=== PATIENT | female | born 1955 | race African-American/Black ===

== ENCOUNTER 2018-04-14 18:48 | Inpatient (IN) | payer OTHER ==
[~2018-04-14] VITALS: Ht 165.1 cm; Wt 52.8 kg
--- NOTE | 2018-04-14 19:07 | Emergency Room Report ---
History of Present Illness General Chief Complaint: Lower Extremity Injury Source: EMS (Moon Wild) Present Illness HPI 62 YO Female presents to the ED Complaining of right thigh and right hip pain status post fall. She denies hitting her head she denies LOC. Denies MCDONALD, neck or back pain, reports some right sided rib pain as well. Patient is not very talkative and does not provide much details. HPI and ROS limited due to poor pt. cooperation. Per telephone conversation pt. was reporting being dropped and left on the ground, pt. was very talkative to whom ever was on her cell phone, however was reluctant to converse in the ED. On preceding attempts: Pt.hx IVDU heroin, on methadone, no Cancer hx. Pt. also reports hx of seizures, takes Dilantin last seizure was years ago. (Moon Wild) Allergies: Coded Allergies: PENICILLINS (Unverified Allergy, Unknown, 04/14/18) Patient History Past Medical History: see triage record, seizures Past Surgical History: none Pertinent Family History: none Reviewed Nursing Documentation: PMH: Agreed; PSxH: Agreed (Moon Wild) Nursing Documentation-PMH Past Medical History: No History, Except For Hx Hypertension: Yes Hx Seizures: Yes (Moon Wild) Review of Systems All Other Systems: negative except mentioned in HPI (Moon Wild) Physical Exam Vital Signs Date Time Temp Pulse Resp B/P (MAP) Pulse Ox O2 Delivery O2 Flow Rate FiO2 04/14/18 18:15 98.2 96 20 139/62 96 Room Air 98.2 Sp02 EP Interpretation: reviewed, normal General Appearance: no apparent distress - initially was verbally expressing pain., alert, GCS 15, non-toxic, thin Head: normocephalic, atraumatic Eyes: bilateral eye normal inspection, bilateral eye PERRL ENT: hearing grossly normal, normal voice, other - no oral trauma Neck: full range of motion, no bony tend Respiratory: lungs clear, normal breath sounds, speaking full sentences, other - TTP to the lateral lower right ribs, no flail chest, no obvious rib deformities. Cardiovascular #1: regular rate, rhythm, no edema Gastrointestinal: non tender, soft Musculoskeletal: back normal, normal range of motion, other - moderate kyphosis , tender - TTP to the right hip and thigh, no knee involvement. ttp to the lower right lateral rib cage. no arm, shoulder, neck or back TTP Neurologic: alert, oriented x3, responsive, motor strength/tone normal, sensory intact, speech normal, grossly normal Psychiatric: other - reserved affect Skin: normal color, no rash, warm/dry, well hydrated, other (Moon Wild) Medical Decision Making PA Attestation Dr. Salmon is my supervising Physician whom patient management has been discussed with. (Moon Wild) Diagnostic Impression: Primary Impression: Fall Qualified Codes: W19.XXXA - Unspecified fall, initial encounter Additional Impressions: Compression fracture Intertrochanteric fracture of right femur Qualified Codes: S72.141A - Displaced intertrochanteric fracture of right femur, initial encounter for closed fracture Lytic lesion of bone on x-ray Anemia Qualified Codes: D64.9 - Anemia, unspecified CKD (chronic kidney disease) Qualified Codes: N18.9 - Chronic kidney disease, unspecified ER Course 62 YO Female presents to the ED Complaining of right thigh and right hip pain status post fall. She denies hitting her head she denies LOC. Denies MCDONALD, neck or back pain, reports some right sided rib pain as well. Patient is not very talkative and does not provide much details. HPI and ROS limited due to poor pt. cooperation. Per telephone conversation pt. was reporting being dropped and left on the ground, pt. was very talkative to whom ever was on her cell phone, however was reluctant to converse in the ED. On preceding attempts: Pt.hx IVDU heroin, on methadone, no Cancer hx. Pt. also reports hx of seizures, takes Dilantin last seizure was years ago. Ddx considered but are not limited to Fracture, dislocation, contusion, Sprain/ Strain/Spasm. -visible dirt/dust along the right arm/ leg most likely acquired from falling to the ground outside. Vital signs: are WNL, pt. is afebrile H&PE are most consistent with musculoskeletal injury will perform imaging to r/ o fractures/dislocations. no abrasions noted. --CURES : Does not show this pt. being rx'd methadone, ORDERS: - X-ray Right Femur - questionable trochanter fx, no Dislocation, or significant soft tissue injury, per preliminary read in ED, and signed by NICHOLAS Wild, my supervising physician has reviewed, and agrees with my interpretation. -CT Chest and Hip no contrast: Compression fx. no rib fx's. -CT Right hip: Minimally displaced intertochanteric fracture of the right femur. 6mm lytic lesion also noted. Per official radiology report- Please see report for specific details. -Pre-Op lab work: CBC,CMP, PT/PTT, ABO: PENDING @ Time of Sign Out - EK NSR ED INTERVENTIONS: - Tylenol PO DISPOSITION: at this time pt. will be admitted for Right femur Fx. (Moon Wild) ER Course She was signed out to me. This patient had a fall and sustained a nondisplaced intratrochanteric right femur fracture. This is concerning for pathological fracture since she has a lytic lesion on the right ilium. She is very anemic but no evidence of bleeding. This is also concerning for neoplastic process like colon cancer. She is otherwise stable for transfer. I discussed the case with Dr. Lindquist who accepted pt for transfer. (NANCI MARSH M.D.) EKG Diagnostic Results EP Interpretation: Dr. Salmon Rate: normal - 86 bpm Rhythm: NSR ST Segments: no acute changes ASA given to the pt in ED: No PA Scribe Text This Interpretation was scribed by NICHOLAS Wild. (Moon Wild) Other X-Ray Diagnostic Results Other X-Ray Diagnostic Results : X-Ray ordered: Right Femur # of Views/Limited Vs Complete: 3 View Indication: Pain EP Interpretation: Yes PA Xray: Interpretation reviewed, by supervising MD, and agrees with findings. Interpretation: no dislocation, no soft tissue swelling, other - questionable trochanter fx Impression: Other - abnormal Electronically Signed by: Moon Wild PA-C (Moon Wild) CT/MRI/US Diagnostic Results CT/MRI/US Diagnostic Results #1: Imaging Test Ordered: CT Chest Non contrast Impression "Age-indeterminate L3 compression fracture. 40% loss of height. No retropulsion. No pneumothorax or hemothorax. Subsegmental atelectasis to both lungs. Hypodense blood pool suggesting anemia"Per official radiology report- Please see report for specific details. CT/MRI/US Diagnostic Results #2: Imaging Test Ordered: CT HIP- Right Impression "Mildly displaced intertrochanteric Femur fx. and 6mm lytic lesion." --Per official radiology report- Please see report for specific details. (Moon Wild) Last Vital Signs Date Time Temp Pulse Resp B/P (MAP) Pulse Ox O2 Delivery O2 Flow Rate FiO2 04/14/18 18:15 98.2 96 20 139/62 96 Room Air 98.2 (Moon Wild) Status: unchanged (NANCI MARSH M.D.) Disposition: XFER SHT-TRM HOSP Condition: Stable Signed Out To: Dr. Marsh (Moon Wild) Moon Wild Apr 14, 2018 19:07 NANCI MARSH M.D. Apr 14, 2018 23:03
[2018-04-14 22:08] VITALS: BP 121/68
[2018-04-14 22:48] LABS: HEMATOCRIT 25.4 % (37.0-47.0); HEMOGLOBIN 7.1 G/DL (12.0-16.0); MEAN CORPUSCULAR VOLUME 67 FL (80-99); PLATELET COUNT 243 K/UL (150-450); RED BLOOD COUNT 3.78 M/UL (4.20-5.40); RED CELL DISTRIBUTION WIDTH 15.7 % (11.6-14.8); WHITE BLOOD COUNT 5.7 K/UL (4.8-10.8)
[2018-04-14 22:52] LABS: ANION GAP 9 mmol/L (5-15); BLOOD UREA NITROGEN 18 mg/dL (7-18); CALCIUM 8.8 MG/DL (8.5-10.1); CARBON DIOXIDE 24 MMOL/L (21-32); CHLORIDE 105 MMOL/L (98-107); CREATININE 2.1 MG/DL (0.55-1.30); POTASSIUM 4.4 MMOL/L (3.5-5.1); SODIUM 137 MMOL/L (136-145)
[2018-04-14 22:57] LABS: ALANINE AMINOTRANSFERASE 26 U/L (12-78); ALBUMIN/GLOBULIN RATIO 0.6 (1.0-2.7); ALKALINE PHOSPHATASE 89 U/L (46-116); ASPARTATE AMINO TRANSFERASE 44 U/L (15-37); BILIRUBIN,TOTAL 0.2 MG/DL (0.2-1.0)
[2018-04-14 22:58] LABS: INR 1.1 (0.9-1.1)
[2018-04-15] VITALS (19 sets, daily range): BP systolic 124–181; BP diastolic 70–104
[2018-04-15] MEDS ORDERED: Morphine Sulfate 4mg/ml Inj IVP ONE (01:15)
[2018-04-15] MEDS ORDERED: LORazepam Inj 2mg/ml 1ml IV PRN (07:30)
[2018-04-15] MEDS ORDERED: Morphine Sulfate 4mg/ml Inj IVP PRN ×2 (07:30→15:15)
[2018-04-15] MEDS ORDERED: Mylanta II UD 30ml ORAL PRN (07:30)
[2018-04-15] MEDS ORDERED: Morphine Sulfate 2mg/ml Inj IVP PRN ×3 (08:00→17:30)
[2018-04-15] MEDS ORDERED: D5 1/2NS 1,000 ML IV SCH (08:00)
[2018-04-15] MEDS: Morphine Sulfate 4mg/ml Inj IVP PRN ×2 (08:34→13:23)
[2018-04-15] MEDS: Heparin 5000 units/ml inj SUBQ SCH ×2 (09:00→21:00)
--- NOTE | 2018-04-15 09:53 | Diagnostic Imaging Report ---
Indications: Right hip pain, status post fall Technique: Two views of the right femur Comparison: None Findings: A subtle lucency is seen through the intertrochanteric region, best seen on the AP view. No femoral shaft fracture demonstrated. Impression: Positive for nondisplaced right hip intertrochanteric fracture
--- NOTE | 2018-04-15 12:18 | Diagnostic Imaging Report ---
Indication: Right hip pain, status post fall Technique: No IV contrast utilized per trauma protocol. Spiral acquisitions obtained through the pelvis and right hip Multiplanar reconstructions were generated. Total dose length product 267.47 and 304 mGycm. CTDIvol(s) 9.27 and 10.48 mGy. No definite exam was inadvertently repeated the subsequent morning. Radiation dose was minimized using automated exposure control Comparison: none Findings: There is a nondisplaced minimally posteriorly angulated intertrochanteric fracture of the right hip. No other acute fractures. No pelvic fracture. No definite osteolytic lesion is demonstrated. There is a focal 6 mm osteolytic lesion of the posterior right iliac bone just below the iliac crest with loss of the posterior cortex. No other osteolytic foci. The included pelvic viscera are remarkable for the presence of colonic diverticula.. There is mild increased attenuation of the subcutaneous fat of both hips, right greater than left. Impression: Positive for right hip intertrochanteric fracture Small osteolytic lesion of the right iliac bone. This could represent a small focus of neoplasm or infection. Colonic diverticulosis. No evidence of diverticulitis Increased attenuation of the bilateral hip subcutaneous fat, may reflect small contusions The CT scanner at [facility] is accredited by the [employer] and the scans are performed using protocols designed to limit radiation exposure to as low as reasonably achievable to attain images of sufficient resolution adequate for diagnostic evaluation.
[2018-04-15] MEDS ORDERED: NeoSporin Gu Irrig 1ml Amp IRRIG ONE (12:55)
[2018-04-15] MEDS ORDERED: Bacitracin 50000 Units Vial ONE (12:55)
[2018-04-15] MEDS ORDERED: Bupivacaine 0.5% Inj 30 ml vial INJ ONE (12:56)
[2018-04-15] MEDS ORDERED: EPINEPHrine 1mg/1ml Amp ONE (12:56)
[2018-04-15] MEDS ORDERED: Ketorolac 30mg Inj ONE ×2 (13:00→18:05)
[2018-04-15] MEDS ORDERED: Bupivacaine 0.25% Inj 30ml INJ ONE (13:00)
[2018-04-15] MEDS ORDERED: Kenalog-40 1ml Vial ONE (13:00)
--- NOTE | 2018-04-15 13:27 | Diagnostic Imaging Report ---
Clinical Indication: Pain, status post fall Technique: Spiral acquisitions obtained through the chest. No IV contrast utilized, reason not stated. Multiplanar reconstructions generated. Total dose length product 322.85 mGycm. CTDIvol(s) 10.06 mGy. Dose reduction achieved using automated exposure control Comparison: none Findings: There are mild compression fracture deformities of the T7 and T8 vertebral bodies with minimal height loss. There is also a compression fracture deformity of the T3 vertebral body which demonstrates approximately 50% height loss. No other fractures are evident. The lungs demonstrate scarring and atelectasis at both lung bases. There is mild interstitial septal irregularity, predominantly at the lung bases but generalized. No focal airspace consolidation. No effusions. No definite masses or nodules demonstrated. 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 The heart size is normal. No pericardial effusion. The thyroid demonstrates multiple masses, largest in the lower pole measuring 2 cm long axis dimension. No axillary or chest wall mass or adenopathy. The included upper abdominal anatomy is unremarkable. Impression: Compression fracture deformity of the T3, T7, and T8 vertebral bodies. Acuity indeterminate. 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 Further evaluation with ultrasound should be considered. This finding was discussed in person with Dr. Jerome The CT scanner at [facility] is accredited by the [employer] and the scans are performed using protocols designed to limit radiation exposure to as low as reasonably achievable to attain images of sufficient resolution adequate for diagnostic evaluation.
--- NOTE | 2018-04-15 14:49 | Consultation ---
History of Present Illness General Date patient seen: Apr 15, 2018 Chief Complaint: Present Illness Allergies: Coded Allergies: PENICILLINS (Unverified Allergy, Unknown, 04/14/18) Medication History Unable to Obtain Active Prescriptions or Reported Meds Patient History Healthcare decision maker CL HALE Resuscitation status Full Code Advanced Directive on File No Physical Exam Last 24 Hour Vital Signs Date Time Temp Pulse Resp B/P (MAP) Pulse Ox O2 Delivery O2 Flow Rate FiO2 04/15/18 13:23 98.1 04/15/18 12:00 98.1 101 19 149/79 (102) 98 98.1 04/15/18 09:04 97.5 04/15/18 09:00 97.6 101 20 147/86 (106) 97 97.6 04/15/18 08:34 97.5 04/15/18 05:54 Room Air 04/15/18 05:01 97.5 75 20 138/86 (103) 100 97.5 04/15/18 01:06 98.3 04/15/18 01:00 98.3 87 16 165/80 98 Room Air 98.3 04/15/18 00:27 98.3 87 16 165/80 98 Room Air 98.3 04/15/18 00:00 97.5 82 20 145/90 (108) 100 97.5 04/14/18 22:08 99.3 82 14 121/68 96 Room Air 99.3 04/14/18 21:06 98.2 04/14/18 20:07 98.2 04/14/18 18:15 98.2 96 20 139/62 96 Room Air 98.2 Laboratory Tests Test 04/14/18 22:25 White Blood Count 5.7 K/UL (4.8-10.8) Red Blood Count 3.78 M/UL (4.20-5.40) L Hemoglobin 7.1 G/DL (12.0-16.0) L Hematocrit 25.4 % (37.0-47.0) L Mean Corpuscular Volume 67 FL (80-99) L Mean Corpuscular Hemoglobin 18.8 PG (27.0-31.0) L Mean Corpuscular Hemoglobin Concent 27.9 G/DL (32.0-36.0) L Red Cell Distribution Width 15.7 % (11.6-14.8) H Platelet Count 243 K/UL (150-450) Mean Platelet Volume 7.0 FL (6.5-10.1) Neutrophils (%) (Auto) % (45.0-75.0) Lymphocytes (%) (Auto) % (20.0-45.0) Monocytes (%) (Auto) % (1.0-10.0) Eosinophils (%) (Auto) % (0.0-3.0) Basophils (%) (Auto) % (0.0-2.0) Differential Total Cells Counted 100 Neutrophils % (Manual) 70 % (45-75) Lymphocytes % (Manual) 18 % (20-45) L Monocytes % (Manual) 12 % (1-10) H Eosinophils % (Manual) 0 % (0-3) Basophils % (Manual) 0 % (0-2) Band Neutrophils 0 % (0-8) Platelet Estimate Adequate Platelet Morphology Normal Hypochromasia 1+ Anisocytosis 1+ Prothrombin Time 11.4 SEC (9.30-11.50) Prothromb Time International Ratio 1.1 (0.9-1.1) Activated Partial Thromboplast Time 22 SEC (23-33) L Sodium Level 137 MMOL/L (136-145) Potassium Level 4.4 MMOL/L (3.5-5.1) Chloride Level 105 MMOL/L (98-107) Carbon Dioxide Level 24 MMOL/L (21-32) Anion Gap 9 mmol/L (5-15) Blood Urea Nitrogen 18 mg/dL (7-18) Creatinine 2.1 MG/DL (0.55-1.30) H Estimat Glomerular Filtration Rate 28.7 mL/min (>60) Glucose Level 98 MG/DL (74-106) Calcium Level 8.8 MG/DL (8.5-10.1) Total Bilirubin 0.2 MG/DL (0.2-1.0) Aspartate Amino Transf (AST/SGOT) 44 U/L (15-37) H Alanine Aminotransferase (ALT/SGPT) 26 U/L (12-78) Alkaline Phosphatase 89 U/L (46-116) Total Protein 8.3 G/DL (6.4-8.2) H Albumin 3.0 G/DL (3.4-5.0) L Globulin 5.3 g/dL Albumin/Globulin Ratio 0.6 (1.0-2.7) L Height (Feet): 5 Height (Inches): 5.00 Weight (Pounds): 109 Medications Current Medications Medications (Trade) Dose Ordered Sig/Deysi Route PRN Reason Start Time Stop Time Status Last Admin Dose Admin Acetaminophen (Tylenol) 650 mg Q4H PRN ORAL fever 04/15/18 08:00 05/15/18 07:59 Al Hydroxide/Mg Hydroxide (Mylanta II) 30 ml Q6H PRN ORAL dyspepsia 04/15/18 07:30 05/15/18 07:29 Dextrose (Dextrose 50%) 25 ml STAT PRN IV Hypoglycemia 04/15/18 07:30 05/15/18 07:29 Dextrose (Dextrose 50%) 50 ml STAT PRN IV Hypoglycemia 04/15/18 07:45 05/15/18 07:44 Dextrose/Sodium Chloride 1,000 ml @ 50 mls/hr Q20H IV 04/15/18 08:00 05/15/18 07:59 04/15/18 09:34 Heparin Sodium (Porcine) (Heparin 5000 units/ml) 5,000 units EVERY 12 HOURS SUBQ 04/15/18 09:00 05/15/18 08:59 Lidocaine (Lidoderm 5% PATCH) 1 patch DAILY TDERMAL 04/15/18 14:30 05/15/18 14:29 Lorazepam (Ativan 2mg/ml 1ml) 0.5 mg Q4H PRN IV For Anxiety 04/15/18 07:30 04/22/18 07:29 Morphine Sulfate (Morphine Sulfate) 2 mg Q4H PRN IVP Moderate Pain (Pain Scale 4-6) 04/15/18 08:00 04/22/18 07:59 Morphine Sulfate (Morphine Sulfate) 4 mg Q4H PRN IVP Severe Pain (Pain Scale 7-10) 04/15/18 07:45 04/22/18 07:29 04/15/18 13:23 Ondansetron HCl (Zofran) 4 mg Q6H PRN IVP Nausea & Vomiting 04/15/18 08:00 05/15/18 07:59 Polyethylene Glycol (Miralax) 17 gm HSPRN PRN ORAL Constipation 04/15/18 21:00 05/15/18 20:59 Zolpidem Tartrate (Ambien) 5 mg HSPRN PRN ORAL Insomnia 04/15/18 21:00 04/22/18 20:59 Assessment/Plan Assessment/Plan (1) Right hip fracture s/p fall (2) Right hip pain (3) Thoracic compression fracture (4) H/o heroin abuse on methadone maintenance D/w Dr. Drummond and he concurred. Thank you for the courtesy of this consultation. Jhony Whittaker Apr 15, 2018 14:49
[2018-04-15] MEDS ORDERED: Naloxone 0.4mg/ml Inj IVP PRN (15:15)
--- NOTE | 2018-04-15 15:50 | Consultation ---
Consult Note Consult Note asked to eval for elevated serum Cr 62 YO Female presents to the ED Complaining of right thigh and right hip pain status post fall. She denies hitting her head she denies LOC. Denies MCDONALD, neck or back pain, reports some right sided rib pain as well. Patient is not very talkative and does not provide much details. HPI and ROS limited due to poor pt. cooperation. Per telephone conversation pt. was reporting being dropped and left on the ground, pt. was very talkative to whom ever was on her cell phone, however was reluctant to converse in the ED. On preceding attempts: Pt.hx IVDU heroin, on methadone, no Cancer hx. Pt. also reports hx of seizures, takes Dilantin last seizure was years ago. Coded Allergies: PENICILLINS (Unverified Allergy, Unknown, 04/14/18) Hx Hypertension: Yes Hx Seizures: Yes Assessment/Plan Primary Impression: Fall Compression fracture Intertrochanteric fracture of right femur Lytic lesion of bone on x-ray RENAL FAILURE ? CHRONIC AND ACUTE other: Anemia Low MCV HTN Low Albumin Plan: Anemia sanchez Hydrate avoid nephrotoxics monitor lytes and renal parameters Pasquale Ross MD Apr 15, 2018 15:50
[2018-04-15] MEDS: Pantoprazole Inj IVP SCH (16:00)
--- NOTE | 2018-04-15 16:32 | Diagnostic Imaging Report ---
Indication: Chronic arm and back pain Technique: Sagittal T1 fast spin echo, sagittal T2 fast echo, sagittal STIR, axial T2 fast spin echo images were obtained through the thoracic spine Comparison: Findings: Bony alignment is normal. There is loss of height anteriorly of the T3 vertebral body. There is very subtle slight anterior loss of height of the T7 and T8 vertebral bodies. These all demonstrate normal marrow signal, however. There is no evidence posterior retropulsion. Vertebral body marrow signal is overall normal. There is slight smooth kyphotic deformity. Intrinsic cord signal is normal. No significant disc bulge or protrusion, spinal stenosis, or neural foraminal narrowing noted. The included extraspinal soft tissues are unremarkable Impression: T3, T7, T8 vertebral body compression fracture deformities. Lack of marrow signal changes indicating that these are chronic. Otherwise unremarkable exam
[2018-04-15] MEDS ORDERED: Morphine Sulfate PF 10 ML ONE (16:33)
--- NOTE | 2018-04-15 16:54 | Cardiology Report ---
APPROVED REPORT EKG Measurement Heart [id number] Normal sinus rhythm Prolonged QT Abnormal ECG
[2018-04-15] MEDS ORDERED: Zemuron 50mg/5ml Inj IV ONE (17:00)
[2018-04-15] MEDS ORDERED: LR 1000ml ONE (17:00)
[2018-04-15] MEDS ORDERED: Sterile Water Irrig 1000ml IRRIG ONE (17:00)
[2018-04-15] MEDS ORDERED: Neostigmine 1mg/ml 10ml Inj ONE (17:00)
[2018-04-15] MEDS ORDERED: Glycopyrrolate 0.2mg/ml 1ml Vial ONE (17:00)
[2018-04-15] MEDS ORDERED: NS Irrig 1000ml ONE (17:00)
[2018-04-15] MEDS ORDERED: Lidocaine 1% MPF 10mg/ml 5ml ONE (17:01)
[2018-04-15] MEDS ORDERED: Propofol 200mg/20ml IV ONE (17:01)
[2018-04-15] MEDS ORDERED: fentaNYL 100 mcg/2 mL IV ONE ×2 (17:02→18:06)
[2018-04-15] MEDS ORDERED: Midazolam 2mg/2ml Inj ONE (17:03)
[2018-04-15] MEDS: Docusate 100mg cap ORAL SCH ×2 (17:23→21:00)
[2018-04-15] MEDS ORDERED: D5 1/2NS w/KCl 20mEq 1,000 ML IV SCH (17:23)
--- NOTE | 2018-04-15 17:23 | Pre-Procedure Note/Attestation ---
Pre-Procedure Note/Attestation Complete Prior to Procedure Planned Procedure: right Procedure Narrative: hip orif Indications for Procedure Pre-Operative Diagnosis: right hip fx Attestation I attest that I discussed the nature of the procedure; its benefits; risks and complications; and alternatives (and the risks and benefits of such alternatives ), prior to the procedure, with the patient (or the patient's legal associate financial representative). I attest that, if there was a reasonable possibility of needing a blood transfusion, the patient (or the patient's legal associate financial representative) was given the [facility] standardized written summary, pursuant to the David Uma Blood Safety Act ([place] Health and Safety Code # 1645, as amended). I attest that I re-evaluated the patient just prior to the surgery and that there has been no change in the patient's H&P, except as documented below: Herberth George MD Apr 15, 2018 17:22
--- NOTE | 2018-04-15 17:23 | Operative Note - PDOC ---
Operative Note Operative Note Pre-op Diagnosis: right hip fx Procedure: right hip orif Post-op Diagnosis: same as pre-op plus Operative Findings: consistent w/pre-op dx studies Anesthesia: general Specimen: none Complications: none Condition: stable Estimated Blood Loss: none Implant(s) used?: Yes Herberth George MD Apr 15, 2018 17:23
[2018-04-15] MEDS ORDERED: Metoclopramide 10mg/2ml Inj IVP PRN (17:30)
[2018-04-15] MEDS ORDERED: Norco 5mg/325mg tab ORAL PRN (17:30)
[2018-04-15] MEDS ORDERED: Duramorph PF 10mg/10ml amp IV ONE (17:35)
--- NOTE | 2018-04-15 17:55 | Anethesia Preoperative Eval ---
Anesthesia Pre-op PMH/ROS General Date of Evaluation: Apr 15, 2018 Time of Evaluation: 17:00 Anesthesiologist: ASA Score: ASA 3 Mallampati Score Class I : Soft palate, uvula, fauces, pillars visible Class II: Soft palate, uvula, fauces visible Class III: Soft palate, base of uvula visible Class IV: Only hard plate visible Mallampati Classification: Class II Surgeon: adelia Diagnosis: right hip fracture Surgical Procedure: orif right hip Anesthesia History: none Social History: smoking Family History: no anesthesia problems Allergies: Coded Allergies: PENICILLINS (Unverified Allergy, Unknown, 04/14/18) Medications: see eMAR Past Medical History Cardiovascular: Reports: HTN; Denies: CAD, VT, valve dz, arrhythmia, other Pulmonary: Denies: asthma, COPD, WILLY, other Gastrointestinal/Genitourinary: Denies: GERD, CRI, ESRD, other Neurologic/Psychiatric: Reports: other - seizures; Denies: dementia, CVA, depression/anxiety, TIA Endocrine: Denies: DM, hypothyroidism, steroids, other HEENT: Denies: cataract (L), cataract (R), glaucoma, YAVAPAI-APACHE (L), YAVAPAI-APACHE (R), other Hematology/Immune: Reports: anemia; Denies: DVT, bleeding disorder, other Musculoskeletal/Integumentary: Denies: OA, RA, DJD, DDD, edema, other Anesthesia Pre-op Phys. Exam Physician Exam Last Vital Signs Date Time Temp Pulse Resp B/P (MAP) Pulse Ox O2 Delivery O2 Flow Rate FiO2 04/15/18 13:23 98.1 04/15/18 12:00 101 19 149/79 (102) 98 04/15/18 09:00 Room Air Constitutional: other - pain in right hip and both arms Cardiovascular: RRR Respiratory: CTA Gastrointestinal: S/NT/ND Airway Exam Mallampati Score: Class II MO: full ROM: full Teeth: missing Dentures: no upper, no lower Anesthesia Pre-op A/P Labs Hematology Test 04/14/18 22:25 White Blood Count 5.7 K/UL (4.8-10.8) Red Blood Count 3.78 M/UL (4.20-5.40) L Hemoglobin 7.1 G/DL (12.0-16.0) L Hematocrit 25.4 % (37.0-47.0) L Mean Corpuscular Volume 67 FL (80-99) L Mean Corpuscular Hemoglobin 18.8 PG (27.0-31.0) L Mean Corpuscular Hemoglobin Concent 27.9 G/DL (32.0-36.0) L Red Cell Distribution Width 15.7 % (11.6-14.8) H Platelet Count 243 K/UL (150-450) Mean Platelet Volume 7.0 FL (6.5-10.1) Neutrophils (%) (Auto) % (45.0-75.0) Lymphocytes (%) (Auto) % (20.0-45.0) Monocytes (%) (Auto) % (1.0-10.0) Eosinophils (%) (Auto) % (0.0-3.0) Basophils (%) (Auto) % (0.0-2.0) Differential Total Cells Counted 100 Neutrophils % (Manual) 70 % (45-75) Lymphocytes % (Manual) 18 % (20-45) L Monocytes % (Manual) 12 % (1-10) H Eosinophils % (Manual) 0 % (0-3) Basophils % (Manual) 0 % (0-2) Band Neutrophils 0 % (0-8) Platelet Estimate Adequate Platelet Morphology Normal Hypochromasia 1+ Anisocytosis 1+ Coagulation Test 04/14/18 22:25 Prothrombin Time 11.4 SEC (9.30-11.50) Prothromb Time International Ratio 1.1 (0.9-1.1) Activated Partial Thromboplast Time 22 SEC (23-33) L Chemistry Test 04/14/18 22:25 Sodium Level 137 MMOL/L (136-145) Potassium Level 4.4 MMOL/L (3.5-5.1) Chloride Level 105 MMOL/L (98-107) Carbon Dioxide Level 24 MMOL/L (21-32) Anion Gap 9 mmol/L (5-15) Blood Urea Nitrogen 18 mg/dL (7-18) Creatinine 2.1 MG/DL (0.55-1.30) H Estimat Glomerular Filtration Rate 28.7 mL/min (>60) Glucose Level 98 MG/DL (74-106) Calcium Level 8.8 MG/DL (8.5-10.1) Total Bilirubin 0.2 MG/DL (0.2-1.0) Aspartate Amino Transf (AST/SGOT) 44 U/L (15-37) H Alanine Aminotransferase (ALT/SGPT) 26 U/L (12-78) Alkaline Phosphatase 89 U/L (46-116) Total Protein 8.3 G/DL (6.4-8.2) H Albumin 3.0 G/DL (3.4-5.0) L Globulin 5.3 g/dL Albumin/Globulin Ratio 0.6 (1.0-2.7) L Risk Assessment & Plan Assessment: asa 3 Plan: ETGA Pre-Antibiotics Drug: ancef 1 gram Given Within 1 Hr of Incision: Yes Time Given: 17:25 Digna Garcia M.D. Apr 15, 2018 17:55
[2018-04-15] MEDS ORDERED: LR 1000ml 1,000 ML IVLG SCH (17:58)
[2018-04-15] MEDS ORDERED: DiphenhydrAMINE 50mg/ml Inj IVP PRN (18:00)
[2018-04-15] MEDS ORDERED: fentaNYL 100 mcg/2 mL IV PRN (18:00)
[2018-04-15] MEDS ORDERED: Midazolam 2mg/2ml Inj IVP PRN (18:00)
[2018-04-15] MEDS ORDERED: Hydromorphone 0.5mg/0.5ml inj IVP PRN (18:00)
[2018-04-15] MEDS ORDERED: Labetalol 5mg/ml 20ml vial IV PRN (18:00)
--- NOTE | 2018-04-15 18:30 | History and Physical Report ---
DATE OF ADMISSION: 04/15/2018 TIME: 12 noon. CONSULTANTS: 1. Rufina Venegas M.D. 2. Dr. George. CHIEF COMPLAINT: Right hip fracture, anemia and seizure. BRIEF HISTORY: This is a 62-year-old female, who lives at home, apparently was sitting in the toilet, was unable to get up with a hip pain. No fall. The patient sent to [facility], diagnosed with right hip fracture and admitted to medical floor for pending surgery. Currently, calm in bed. Actually, slight pain in the right hip. No complaint. PAST MEDICAL HISTORY: CKD, anemia and seizure. PAST SURGICAL HISTORY: Hysterectomy. ALLERGIES: Penicillin. SOCIAL HISTORY: Positive smoking. Occasional alcohol. No intravenous drug abuse. FAMILY HISTORY: Noncontributory. REVIEW OF SYSTEMS: No chest pain. No shortness of breath. No nausea, vomiting, or diarrhea. PHYSICAL EXAMINATION: GENERAL: Calm in bed, oriented x3, in no acute distress. VITAL SIGNS: Temperature is 97 degrees, pulse 101, respirations 20, and blood pressure 147/86. CARDIOVASCULAR: No murmur. LUNGS: Distant and clear. ABDOMEN: Bowel sound positive. Nontender. Nondistended. EXTREMITIES: No cyanosis, clubbing or edema. NEUROLOGIC: The patient is slightly weak, but moves all extremities. LABORATORY AND DIAGNOSTIC DATA: Hemoglobin 7.1, otherwise CBC is normal. BMP shows creatinine 2.1. AST is 44. Albumin 3.0. INR is 1.1 and PTT 22. MEDICATIONS: Ambien, MiraLAX, heparin, Zofran, morphine, Tylenol, Mylanta, and Ativan. ASSESSMENT: 1. Right hip fracture. 2. Anemia. 3. CKD. 4. Hypoalbumin. 5. Seizure. PLAN: 1. Continue previous medications. 2. Seizure control. 3. Pain control. 4. Dietary followup. 5. Dr. Venegas, Dr. George and Dr. Ross to consult. 6. We will continue to follow this patient medically pending Surgery. 7. CBC and BMP in the morning. 8. OT/PT. 9. Dietary evaluation. Juanito Jerome D.O. DR: PERLITA JOB#: [id number] CC:
--- NOTE | 2018-04-15 18:45 | Consultation ---
DATE OF CONSULTATION: 04/15/2018 NOTE: "POOR AUDIO QUALITY" ORTHOPEDIC CONSULTATION CONSULTING PHYSICIAN: Herberth George M.D. CHIEF COMPLAINT: Right hip pain. HISTORY OF PRESENT ILLNESS: This 62-year-old female presented with complaints of right hip pain. She was admitted and had x-ray and imaging studies which showed a hip fracture. Orthopedic consultation was obtained for further care and recommendation. PAST MEDICAL HISTORY: Reviewed from the intake chart. SURGICAL HISTORY: Reviewed from the intake chart. MEDICATIONS: Reviewed from the intake chart. PHYSICAL EXAMINATION: GENERAL: The patient is alert. She is resting comfortably at this time in bed. MUSCULOSKELETAL: She has pain with internal and external rotation of the right hip. DIAGNOSTIC DATA: X-rays and CT scan of the right hip shows a nondisplaced intertrochanteric hip fracture. ASSESSMENT: Right nondisplaced intertrochanteric hip fracture. DISCUSSION: We will proceed with open reduction and internal fixation. Risks, limitations, expectations, and complications of procedure were discussed in detail. All questions were addressed. She is medically optimized for procedure later on today. She has been seen by Dr. Jerome as well as Dr. Venegas. She is somewhat anemic which I think is chronic. She also has elevated creatinine, which I think is also a chronic issue, but I will leave that to medical doctors to address moving forward. Herberth George M.D. DR: Andrade JOB#: [id number] CC:
--- NOTE | 2018-04-15 18:47 | Immediate Post-Op Evaluation ---
Immediate Post-Op Evalulation Immediate Post-Op Evalulation Procedure: orif right hip Date of Evaluation: Apr 15, 2018 Time of Evaluation: 18:25 IV Fluids: LR 1000ml Blood Products: 0 Estimated Blood Loss: 5ml Urinary Output: 0 Blood Pressure Systolic: 164 Blood Pressure Diastolic: 100 Pulse Rate: 89 Respiratory Rate: 21 O2 Sat by Pulse Oximetry: 100 Temperature (Fahrenheit): 98.9 Pain Score (1-10): 5 Nausea: No Vomiting: No Complications none Patient Status: awake, patent, none Hydration Status: adequate Drug: ancef 2 grams Given Within 1 Hr of Incision: Yes - 17:25 Time Given: 17:25 Digna Garcia M.D. Apr 15, 2018 18:47
--- NOTE | 2018-04-15 19:15 | Operative Note - Dictated ---
DATE OF OPERATION: 04/15/2018 NOTE: "POOR AUDIO QUALITY" PREOPERATIVE DIAGNOSIS: Right intertrochanteric hip fracture. POSTOPERATIVE DIAGNOSIS: Right intertrochanteric hip fracture. PROCEDURE: Open reduction and internal fixation of right intertrochanteric hip fracture with intramedullary device. SURGEON: Herberth George M.D. ANESTHESIA: General. INDICATION FOR PROCEDURE: The patient is a pleasant female, who sustained a fall and diagnosed with right intertrochanteric hip fracture and indicated for operative fixation with intramedullary device. Risks, limitations, expectations, and complications of procedure were discussed in detail. All questions were addressed. DESCRIPTION OF PROCEDURE: After informed consent was obtained, the patient was brought to the operating room. The patient was placed under general anesthesia. The patient was then carefully placed on the fracture table. We padded all the extremities. Reduction of the fracture was performed. Right hip was prepped and draped in sterile manner. Time-out was performed. Ancef was administered. Lateral skin incision was then made. A guidewire was positioned in the proximal aspect of the femur. A short gamma nail was then selected through a second stab incision and an 18-mm cannulated screw was placed. The set screw was locked and "turned off" quarter turn. Given this was a nondisplaced fracture, distal fixation was not necessary. Therefore, intramedullary device was removed. The wound was copiously irrigated. The skin was closed using #1 Vicryl suture, 2-0 Vicryl suture, and 3-0 Monocryl sutures. Steri-Strips and sterile dressing were applied. The patient was awoken and taken to recovery room with stable vital signs. ESTIMATED BLOOD LOSS: None. COMPLICATIONS: None. SPECIMENS: None. IMPLANTS: Include 125 short gamma nail, 18 mm cannulated screw. Herberth George M.D. DR: Andrade JOB#: [id number] CC:
--- NOTE | 2018-04-15 19:21 | 48 Hour Post Anesthesia Eval ---
Post Anesthesia Evaluation Procedure: orif right hip Date of Evaluation: Apr 15, 2018 Time of Evaluation: 19:15 Blood Pressure Systolic: 158 0: 94 Pulse Rate: 86 Respiratory Rate: 23 Temperature (Fahrenheit): 98.8 O2 Sat by Pulse Oximetry: 97 Airway: patent Nausea: No Vomiting: No Pain Intensity: 0 Hydration Status: adequate Mental Status/LOC: patient returned to baseline Post-Anesthesia Complications: none Follow-up care needed: N/A Digna Garcia M.D. Apr 15, 2018 19:21
[2018-04-15 20:45] LABS: CREATINE KINASE 213 U/L (26-308)
--- NOTE | 2018-04-15 20:53 | Diagnostic Imaging Report ---
EXAM: XR Pelvis, 1 or 2 Views CLINICAL HISTORY: POST-OP TECHNIQUE: Frontal view of the pelvis. COMPARISON: 04/14/2018 CT right hip. FINDINGS: Bones/joints: Status post right proximal femoral surgical fixation for right intertrochanteric fracture. No acute dislocation. Soft tissues: Right hip/thigh soft tissue swelling/air. IMPRESSION: Status post right proximal femoral surgical fixation for right intertrochanteric fracture.
[2018-04-15] MEDS ORDERED: Miralax 17gm pkt ORAL PRN (21:00)
[2018-04-15] MEDS ORDERED: Zolpidem 5mg tab ORAL PRN (21:00)
[2018-04-15] MEDS ORDERED: ceFAZolin sod 2 GM in D5W 110 ML IV SCH ×2 (22:00→22:30)
--- NOTE | 2018-04-15 22:35 | Diagnostic Imaging Report ---
EXAM: XR Right Hip, intraoperative fluoroscopic images CLINICAL HISTORY: PAIN TECHNIQUE: Intraoperative fluoroscopic images of the right hip. COMPARISON: No relevant prior studies available. FINDINGS/IMPRESSION: Intraoperative fluoroscopic 5 images of right proximal femoral surgical fixation. Proximal femoral metallic fixation severiano and screw were placed. No acute dislocation.
[2018-04-16] VITALS: BP 141/75
[2018-04-16] MEDS: Pantoprazole Inj IVP SCH ×2 (00:43→08:12)
[2018-04-16] MEDS: D5 1/2NS w/KCl 20mEq 1,000 ML IV SCH ×2 (00:55→06:45)
[2018-04-16] MEDS: ceFAZolin sod 2 GM in D5W 110 ML IV SCH ×2 (01:14→12:14)
--- NOTE | 2018-04-16 01:30 | Consultation ---
DATE OF CONSULTATION: 04/15/2018 PAIN MANAGEMENT CONSULTATION CONSULTING PHYSICIAN: Yossi Drummond M.D. REFERRING PHYSICIAN: Juanito Jerome D.O. PHYSICIAN LABORER [employer]: Saadia Mcmanus CHIEF COMPLAINT: Right hip pain. HISTORY OF PRESENT ILLNESS: This is a 62-year-old female who is being seen on the Medical/Surgical floor of [facility] for initial comprehensive pain management consultation. The patient is in bed with family at bedside, reporting she had fallen and she injured her right hip. X-ray found right hip fracture. We need for orthopedic intervention with Dr. George for a possible open reduction and internal fixation. The patient is describing as a sharp pain, which is aching and throbbing at times, rating 10/10, started on morphine 4 mg IV every 4 hours as needed for severe pain and morphine 2 mg IV every 4 hours as needed for moderate pain. We were consulted to help the patient to have adequate pain control while here in the hospital for a faster recovery, had a history of heroin abuse, on methadone taking 100 mg daily with [facility], which will be verified with the clinic by the nurse and pharmacist and will be started while here in the hospital. Upon admission, a chest CT scan was ordered, found the patient to have compression fracture deformity at T3, T7, T8, age indeterminate, and is recommended for an MRI to further assess the pathology, which will be ordered. PAST MEDICAL HISTORY: Hypertension and seizure disorder. SOCIAL HISTORY: She has history of heroin abuse, on methadone maintenance. ALLERGIES: Penicillin. MEDICATIONS: Methadone. REVIEW OF SYSTEMS: Denies rash, fever, chills, sweating, dizziness, drowsiness, blurred vision, sore throat, or change in weight. No shortness of breath or chest pain. No nausea, vomiting, diarrhea, or blood in the stool or urine. No bowel or bladder incontinence. No dysuria. She is complaining of right hip pain. PHYSICAL EXAMINATION: GENERAL: Alert, awake, and oriented x3. VITAL SIGNS: Blood pressure 149/79, heart rate 75, oxygen saturation 98%, respiratory rate 19, and temperature is 98.1 degrees Fahrenheit. HEENT: PERRLA. NECK: Range of motion is full in all directions. No tenderness to paracervical muscles. No adenopathy. LUNGS: Decreased breath sounds bilaterally. HEART: Regular. ABDOMEN: Benign. BACK: Range of motion is decreased in flexion and extension with tenderness to paraspinal muscles. No tenderness of trapezius or rhomboid muscles. EXTREMITIES: Upper extremity range of motion is full in all directions. No cyanosis. No clubbing. No edema. Sensory is intact. Reflexes are not obtainable. No adenopathy. Lower extremity range of motion is decreased. The patient has tenderness to palpation to the right hip. No cyanosis. No clubbing. No edema. Sensory is intact. Reflexes are not obtainable. No adenopathy. ASSESSMENT AND PLAN: This is a 62-year-old female with right hip fracture status post fall, right hip pain, thoracic compression fracture, history of heroin abuse, on methadone maintenance. Patient will be discontinued off the morphine 2 mg IV and morphine 4 mg IV will be changed for moderate pain. We will start the patient on Dilaudid 2 mg IV every 4 hours as needed for severe pain. We will restart the patient's methadone at 100 mg daily, which will be verified with the methadone clinic by the nurse and pharmacist. An MRI of the thoracic spine will be ordered without contrast to rule out further pathology in the thoracic spine. The patient was discussed with Dr. Drummond and Dr. Drummond concurred. We will follow the patient. Thank you very much for the courtesy of this consultation. Yossi Drummond M.D. NICHOLAS Mcmanus DR: SIMI JOB#: [id number] CC: VINEET
[2018-04-16 04:00] VITALS: BP 138/78
[2018-04-16 06:27] LABS: APPEARANCE,URINE CLEAR; BILIRUBIN, URINE NEGATIVE (NEGATIVE); COLOR,URINE PALE YELLOW; GLUCOSE, URINE (UA) NEGATIVE (NEGATIVE); KETONES,URINE NEGATIVE (NEGATIVE); LEUKOCYTE ESTERASE ,URINE 2+ (NEGATIVE); NITRITE,URINE NEGATIVE (NEGATIVE); PH,URINE 5 (4.5-8.0); PROTEIN,URINE NEGATIVE (NEGATIVE); UROBILINOGEN,URINE NORMAL MG/DL (0.0-1.0)
--- NOTE | 2018-04-16 07:08 | General Progress Note ---
Assessment/Plan Problem List: (1) Femur fracture, right ICD Codes: S72.91XA - Unspecified fracture of right femur, initial encounter for closed fracture SNOMED: 82203148 Qualifiers: Qualified Codes: S72.141A - Displaced intertrochanteric fracture of right femur, initial encounter for closed fracture (2) Anemia ICD Codes: D64.9 - Anemia, unspecified SNOMED: 550307159 Qualifiers: Qualified Codes: D64.9 - Anemia, unspecified (3) CKD (chronic kidney disease) ICD Codes: N18.9 - Chronic kidney disease, unspecified SNOMED: 585558071 Qualifiers: Qualified Codes: N18.9 - Chronic kidney disease, unspecified (4) Intertrochanteric fracture of right femur ICD Codes: S72.141A - Displaced intertrochanteric fracture of right femur, initial encounter for closed fracture SNOMED: [id number] Qualifiers: Qualified Codes: S72.141A - Displaced intertrochanteric fracture of right femur, initial encounter for closed fracture Status: stable, progressing Assessment/Plan ot pt diet pain control cbc bmp am brotman aru eval Subjective Constitutional: Reports: weakness Allergies: Coded Allergies: PENICILLINS (Unverified Allergy, Unknown, 04/14/18) All Systems: reviewed and negative except above Subjective o2nc sleepy calm Objective Last 24 Hour Vital Signs Date Time Temp Pulse Resp B/P (MAP) Pulse Ox O2 Delivery O2 Flow Rate FiO2 04/16/18 04:00 97.7 88 19 138/78 (98) 98 97.7 04/16/18 00:00 97.5 84 18 141/75 (97) 97 97.5 04/15/18 23:00 97.1 83 20 135/79 (97) 97 97.1 04/15/18 22:00 98.9 82 18 124/70 (88) 99 98.9 04/15/18 21:30 97.9 88 18 139/72 (94) 94 97.9 04/15/18 21:00 Room Air 04/15/18 21:00 98.6 79 18 142/84 (103) 100 98.6 04/15/18 20:30 98.2 86 18 136/80 (98) 100 98.2 04/15/18 20:00 97.6 84 18 147/91 (109) 97 97.6 04/15/18 19:40 97.5 83 15 158/86 98 Nasal Cannula 3 97.5 04/15/18 19:21 209.8 86 23 97 04/15/18 19:15 85 14 154/91 100 Nasal Cannula 3 04/15/18 19:11 98.0 04/15/18 19:10 82 17 157/94 96 Nasal Cannula 3 04/15/18 19:00 81 19 155/96 98 Nasal Cannula 3 04/15/18 18:50 89 14 168/104 100 Simple Mask 6 04/15/18 18:47 210.0 89 21 100 04/15/18 18:40 91 15 171/101 100 Simple Mask 6 04/15/18 18:30 88 18 181/102 100 Simple Mask 6 04/15/18 18:25 98.9 89 21 167/103 100 Simple Mask 6 98.9 04/15/18 13:23 98.1 04/15/18 12:00 98.1 101 19 149/79 (102) 98 98.1 04/15/18 09:04 97.5 04/15/18 09:00 97.6 101 20 147/86 (106) 97 97.6 04/15/18 09:00 Room Air 04/15/18 08:34 97.5 Intake and Output 04/15/18 04/16/18 19:00 07:00 Intake Total 1245 ml Output Total 510 ml Balance 735 ml Intake Oral 360 ml IV Total 585 ml Blood Product 300 ml Output Urine Total 500 ml Estimated Blood Loss 10 ml # Voids 1 Laboratory Tests 04/15/18 20:16: Uric Acid 7.7H, Total Creatine Kinase 213 04/16/18 06:00: Urine Color Pale yellow, Urine Appearance Clear, Urine pH 5, Urine Specific [place] 1.015, Urine Protein Negative, Urine Glucose (UA) Negative, Urine Ketones Negative, Urine Occult Blood Negative, Urine Nitrite Negative, Urine Bilirubin Negative, Urine Urobilinogen Normal, Urine Leukocyte Esterase 2+H, Urine RBC 0-2, Urine WBC 5-10H, Urine Squamous Epithelial Cells Few, Urine Bacteria Occasional, Urine Eosinophils [Pending] Height (Feet): 5 Height (Inches): 5.00 Weight (Pounds): 109 General Appearance: lethargic EENT: normal ENT inspection Neck: normal alignment Cardiovascular: normal peripheral pulses, normal rate, regular rhythm Respiratory/Chest: chest wall non-tender, lungs clear, normal breath sounds Abdomen: normal bowel sounds, non tender, soft Extremities: normal inspection Edema: no edema noted Arm (L), no edema noted Arm (R), no edema noted Leg (L), no edema noted Leg (R), no edema noted Pedal (L), no edema noted Pedal (R), no edema noted Generalized Neurologic: motor weakness Skin: normal pigmentation, warm/dry Juanito Jerome DO Apr 16, 2018 07:08
[2018-04-16 07:43] LABS: HEMATOCRIT 29.7 % (37.0-47.0); HEMOGLOBIN 8.7 G/DL (12.0-16.0); MEAN CORPUSCULAR VOLUME 70 FL (80-99); PLATELET COUNT 222 K/UL (150-450); RED BLOOD COUNT 4.22 M/UL (4.20-5.40); RED CELL DISTRIBUTION WIDTH 16.9 % (11.6-14.8); WHITE BLOOD COUNT 9.2 K/UL (4.8-10.8)
[2018-04-16 07:48] LABS: INR 1.1 (0.9-1.1)
[2018-04-16 07:57] LABS: PHOSPHORUS 2.8 MG/DL (2.5-4.9)
[2018-04-16 08:04] LABS: ALANINE AMINOTRANSFERASE 22 U/L (12-78); ALBUMIN 2.6 G/DL (3.4-5.0); ALBUMIN/GLOBULIN RATIO 0.5 (1.0-2.7); ALKALINE PHOSPHATASE 82 U/L (46-116); ANION GAP 12 mmol/L (5-15); ASPARTATE AMINO TRANSFERASE 30 U/L (15-37); BILIRUBIN,TOTAL 0.4 MG/DL (0.2-1.0); BLOOD UREA NITROGEN 21 mg/dL (7-18); CALCIUM 8.5 MG/DL (8.5-10.1); CARBON DIOXIDE 21 MMOL/L (21-32); CHLORIDE 104 MMOL/L (98-107); CREATININE 1.9 MG/DL (0.55-1.30); POTASSIUM 4.2 MMOL/L (3.5-5.1); SODIUM 137 MMOL/L (136-145)
[2018-04-16 08:09] LABS: FERRITIN 10 NG/ML (8-388); LACTATE DEHYDROGENASE 249 U/L (81-234)
[2018-04-16] MEDS: Heparin 5000 units/ml inj SUBQ SCH ×2 (08:12→20:36)
[2018-04-16] MEDS: Docusate 100mg cap ORAL SCH ×4 (08:12→17:04)
[2018-04-16 08:33] LABS: % IRON SATURATION 10 % (15-50); IRON 44 ug/dL (50-175); TOTAL IRON BINDING CAPACITY 436 ug/dL (250-450)
[2018-04-16 08:35] VITALS: BP 140/80
[2018-04-16 11:43] VITALS: BP 134/77
--- NOTE | 2018-04-16 11:45 | Nephrology Progress Note ---
Assessment/Plan Problem List: (1) Femur fracture, right Assessment: surgery 04/15 (2) CKD (chronic kidney disease) (3) Anemia Assessment: low MCV (4) Lytic lesion of bone on x-ray (5) Compression fracture (6) Hypertension (7) Hypoalbuminemia Assessment stable- Cr lower Hgb higher Plan IV Iron- avoid nephrotoxics Post op care monitor renal parameters BP control check urine culture Subjective ROS Limited/Unobtainable: No Constitutional: Reports: malaise Objective Objective Last 24 Hour Vital Signs Date Time Temp Pulse Resp B/P (MAP) Pulse Ox O2 Delivery O2 Flow Rate FiO2 04/16/18 08:35 97.5 92 20 140/80 (100) 100 97.5 04/16/18 08:26 Room Air 04/16/18 04:00 97.7 88 19 138/78 (98) 98 97.7 04/16/18 00:00 97.5 84 18 141/75 (97) 97 97.5 04/15/18 23:00 97.1 83 20 135/79 (97) 97 97.1 04/15/18 22:00 98.9 82 18 124/70 (88) 99 98.9 04/15/18 21:30 97.9 88 18 139/72 (94) 94 97.9 04/15/18 21:00 Room Air 04/15/18 21:00 98.6 79 18 142/84 (103) 100 98.6 04/15/18 20:30 98.2 86 18 136/80 (98) 100 98.2 04/15/18 20:00 97.6 84 18 147/91 (109) 97 97.6 04/15/18 19:40 97.5 83 15 158/86 98 Nasal Cannula 3 97.5 04/15/18 19:21 209.8 86 23 97 04/15/18 19:15 85 14 154/91 100 Nasal Cannula 3 04/15/18 19:11 98.0 04/15/18 19:10 82 17 157/94 96 Nasal Cannula 3 04/15/18 19:00 81 19 155/96 98 Nasal Cannula 3 04/15/18 18:50 89 14 168/104 100 Simple Mask 6 04/15/18 18:47 210.0 89 21 100 04/15/18 18:40 91 15 171/101 100 Simple Mask 6 04/15/18 18:30 88 18 181/102 100 Simple Mask 6 04/15/18 18:25 98.9 89 21 167/103 100 Simple Mask 6 98.9 04/15/18 13:23 98.1 04/15/18 12:00 98.1 101 19 149/79 (102) 98 98.1 Intake and Output 04/15/18 04/16/18 19:00 07:00 Intake Total 1245 ml Output Total 510 ml Balance 735 ml Intake Oral 360 ml IV Total 585 ml Blood Product 300 ml Output Urine Total 500 ml Estimated Blood Loss 10 ml # Voids 1 Laboratory Tests 04/15/18 20:16: Uric Acid 7.7H, Total Creatine Kinase 213 04/16/18 06:00: Urine Color Pale yellow, Urine Appearance Clear, Urine pH 5, Urine Specific [place] 1.015, Urine Protein Negative, Urine Glucose (UA) Negative, Urine Ketones Negative, Urine Occult Blood Negative, Urine Nitrite Negative, Urine Bilirubin Negative, Urine Urobilinogen Normal, Urine Leukocyte Esterase 2+H, Urine RBC 0-2, Urine WBC 5-10H, Urine Squamous Epithelial Cells Few, Urine Bacteria Occasional, Urine Eosinophils None seen 04/16/18 07:04: Uric Acid 7.4H, White Blood Count 9.2#, Red Blood Count 4.22, Hemoglobin 8.7L, Hematocrit 29.7L, Mean Corpuscular Volume 70L, Mean Corpuscular Hemoglobin 20.7L , Mean Corpuscular Hemoglobin Concent 29.5L, Red Cell Distribution Width 16.9H, Platelet Count 222, Mean Platelet Volume 7.5, Neutrophils (%) (Auto) , Lymphocytes (%) (Auto) , Monocytes (%) (Auto) , Eosinophils (%) (Auto) , Basophils (%) (Auto) , Differential Total Cells Counted 100, Neutrophils % ( Manual) 91H, Lymphocytes % (Manual) 7L, Monocytes % (Manual) 2, Eosinophils % ( Manual) 0, Basophils % (Manual) 0, Band Neutrophils 0, Platelet Estimate Adequate, Platelet Morphology Normal, Polychromasia 1+, Hypochromasia 2+, Anisocytosis 1+, Microcytosis 2+, Erythrocyte Sedimentation Rate 32H, Reticulocyte Count 1.0, Prothrombin Time 11.4, Prothromb Time International Ratio 1.1, Activated Partial Thromboplast Time 24, Sodium Level 137, Potassium Level 4.2, Chloride Level 104, Carbon Dioxide Level 21, Anion Gap 12, Blood Urea Nitrogen 21H, Creatinine 1.9H, Estimat Glomerular Filtration Rate 32.2, Glucose Level 204#H, Hemoglobin A1c 6.4H, Calcium Level 8.5, Phosphorus Level 2.8, Magnesium Level 2.0, Iron Level 44L, Total Iron Binding Capacity 436, Percent Iron Saturation 10L, Unsaturated Iron Binding 392H, Ferritin 10, Total Bilirubin 0.4, Aspartate Amino Transf (AST/SGOT) 30, Alanine Aminotransferase ( ALT/SGPT) 22, Alkaline Phosphatase 82, Lactate Dehydrogenase 249H, Total Protein 7.9, Albumin 2.6L, Globulin 5.3, Albumin/Globulin Ratio 0.5L, Carcinoembryonic Antigen [Pending], Vitamin B12 Level 937, Folate 9.3, Thyroid Stimulating Hormone (TSH) 0.189L Height (Feet): 5 Height (Inches): 5.00 Weight (Pounds): 109 General Appearance: no apparent distress, lethargic Cardiovascular: tachycardia Respiratory/Chest: decreased breath sounds Abdomen: soft Extremities: other - right thigh dressing Pasquale Ross MD Apr 16, 2018 11:45
[2018-04-16] MEDS ORDERED: Iron Sucrose 200 MG in NS 110 ML IV ONE (12:00)
--- NOTE | 2018-04-16 14:12 | Diagnostic Imaging Report ---
EXAM: US Retroperitoneal Complete, Renal CLINICAL HISTORY: Increased RFD's. Elevated glucose. History of hypertension and IV drug abuse. TECHNIQUE: Real-time ultrasound of the retroperitoneum (complete) with image documentation. COMPARISON: No relevant prior studies available. FINDINGS: Right kidney: Right kidney measures 9.2 x 3.6 x 5.3 cm.. no stones. No hydronephrosis. Left kidney: Somewhat limited evaluation due to body habitus and bowel gas. Kidney measures 8.6 x 4.5 x 5.0 cm. Mild dilatation of left renal ureter measuring 9 mm. No stones or masses. Bladder: Bilateral ureteral jets are seen. Urinary bladder volume 229. IMPRESSION: Mild dilatation of left renal ureter measuring 9 mm.
[2018-04-16 15:40] VITALS: BP 133/78
--- NOTE | 2018-04-16 18:26 | Pulmonology Progress Note ---
Assessment/Plan Problems: (1) Hip fracture, right (2) Compression fracture (3) Lytic lesion of bone on x-ray (4) Anemia (5) Diabetes (6) Hypertension (7) Hypoalbuminemia Assessment/Plan symptomatic treatment check electrolytes anemia w/u pain control renal w/u Subjective ROS Limited/Unobtainable: No Constitutional: Reports: no symptoms Allergies: Coded Allergies: PENICILLINS (Unverified Allergy, Unknown, 04/14/18) Objective Last 24 Hour Vital Signs Date Time Temp Pulse Resp B/P (MAP) Pulse Ox O2 Delivery O2 Flow Rate FiO2 04/16/18 15:40 98.2 85 20 133/78 (96) 100 98.2 04/16/18 11:43 97.9 84 20 134/77 (96) 100 97.9 04/16/18 08:35 97.5 92 20 140/80 (100) 100 97.5 04/16/18 08:26 Room Air 04/16/18 04:00 97.7 88 19 138/78 (98) 98 97.7 04/16/18 00:00 97.5 84 18 141/75 (97) 97 97.5 04/15/18 23:00 97.1 83 20 135/79 (97) 97 97.1 04/15/18 22:00 98.9 82 18 124/70 (88) 99 98.9 04/15/18 21:30 97.9 88 18 139/72 (94) 94 97.9 04/15/18 21:00 Room Air 04/15/18 21:00 98.6 79 18 142/84 (103) 100 98.6 04/15/18 20:30 98.2 86 18 136/80 (98) 100 98.2 04/15/18 20:00 97.6 84 18 147/91 (109) 97 97.6 04/15/18 19:40 97.5 83 15 158/86 98 Nasal Cannula 3 97.5 04/15/18 19:21 209.8 86 23 97 04/15/18 19:15 85 14 154/91 100 Nasal Cannula 3 04/15/18 19:11 98.0 04/15/18 19:10 82 17 157/94 96 Nasal Cannula 3 04/15/18 19:00 81 19 155/96 98 Nasal Cannula 3 04/15/18 18:50 89 14 168/104 100 Simple Mask 6 04/15/18 18:47 210.0 89 21 100 04/15/18 18:40 91 15 171/101 100 Simple Mask 6 04/15/18 18:30 88 18 181/102 100 Simple Mask 6 Intake and Output 04/15/18 04/16/18 19:00 07:00 Intake Total 1245 ml Output Total 510 ml Balance 735 ml Intake Oral 360 ml IV Total 585 ml Blood Product 300 ml Output Urine Total 500 ml Estimated Blood Loss 10 ml # Voids 1 General Appearance: cachetic HEENT: normocephalic, atraumatic Respiratory/Chest: chest wall non-tender, normal breath sounds Abdomen: normal bowel sounds, soft, non tender Extremities: no cyanosis Skin: no rash Laboratory Tests 04/15/18 20:16: Uric Acid 7.7H, Total Creatine Kinase 213 04/16/18 06:00: Urine Color Pale yellow, Urine Appearance Clear, Urine pH 5, Urine Specific [place] 1.015, Urine Protein Negative, Urine Glucose (UA) Negative, Urine Ketones Negative, Urine Occult Blood Negative, Urine Nitrite Negative, Urine Bilirubin Negative, Urine Urobilinogen Normal, Urine Leukocyte Esterase 2+H, Urine RBC 0-2, Urine WBC 5-10H, Urine Squamous Epithelial Cells Few, Urine Bacteria Occasional, Urine Eosinophils None seen 04/16/18 07:04: Uric Acid 7.4H, White Blood Count 9.2#, Red Blood Count 4.22, Hemoglobin 8.7L, Hematocrit 29.7L, Mean Corpuscular Volume 70L, Mean Corpuscular Hemoglobin 20.7L , Mean Corpuscular Hemoglobin Concent 29.5L, Red Cell Distribution Width 16.9H, Platelet Count 222, Mean Platelet Volume 7.5, Neutrophils (%) (Auto) , Lymphocytes (%) (Auto) , Monocytes (%) (Auto) , Eosinophils (%) (Auto) , Basophils (%) (Auto) , Differential Total Cells Counted 100, Neutrophils % ( Manual) 91H, Lymphocytes % (Manual) 7L, Monocytes % (Manual) 2, Eosinophils % ( Manual) 0, Basophils % (Manual) 0, Band Neutrophils 0, Platelet Estimate Adequate, Platelet Morphology Normal, Polychromasia 1+, Hypochromasia 2+, Anisocytosis 1+, Microcytosis 2+, Erythrocyte Sedimentation Rate 32H, Reticulocyte Count 1.0, Prothrombin Time 11.4, Prothromb Time International Ratio 1.1, Activated Partial Thromboplast Time 24, Sodium Level 137, Potassium Level 4.2, Chloride Level 104, Carbon Dioxide Level 21, Anion Gap 12, Blood Urea Nitrogen 21H, Creatinine 1.9H, Estimat Glomerular Filtration Rate 32.2, Glucose Level 204#H, Hemoglobin A1c 6.4H, Calcium Level 8.5, Phosphorus Level 2.8, Magnesium Level 2.0, Iron Level 44L, Total Iron Binding Capacity 436, Percent Iron Saturation 10L, Unsaturated Iron Binding 392H, Ferritin 10, Total Bilirubin 0.4, Aspartate Amino Transf (AST/SGOT) 30, Alanine Aminotransferase ( ALT/SGPT) 22, Alkaline Phosphatase 82, Lactate Dehydrogenase 249H, Total Protein 7.9, Albumin 2.6L, Globulin 5.3, Albumin/Globulin Ratio 0.5L, Carcinoembryonic Antigen [Pending], Vitamin B12 Level 937, Folate 9.3, Thyroid Stimulating Hormone (TSH) 0.189L Current Medications Medications (Trade) Dose Ordered Sig/Deysi Route PRN Reason Start Time Stop Time Status Last Admin Dose Admin Acetaminophen (Tylenol) 650 mg Q4H PRN ORAL fever 04/15/18 08:00 05/15/18 07:59 Acetaminophen/ Hydrocodone Bitart ([place] 5/325) 2 tab Q6H PRN ORAL Severe Pain (Pain Scale 7-10) 04/15/18 17:30 04/22/18 17:29 Dextrose (Dextrose 50%) 25 ml STAT PRN IV Hypoglycemia 04/15/18 07:30 05/15/18 07:29 Dextrose (Dextrose 50%) 50 ml STAT PRN IV Hypoglycemia 04/15/18 07:45 05/15/18 07:44 Docusate Sodium (Colace) 100 mg THREE TIMES A DAY ORAL 04/15/18 18:00 05/15/18 17:59 04/16/18 17:04 Heparin Sodium (Porcine) (Heparin 5000 units/ml) 5,000 units EVERY 12 HOURS SUBQ 04/15/18 09:00 05/15/18 08:59 04/16/18 08:12 Hydromorphone HCl (Dilaudid) 2 mg Q4H PRN IVP Severe Pain (Pain Scale 7-10) 04/15/18 17:15 04/22/18 17:14 Iron Sucrose 100 mg/Sodium Chloride 60 ml @ 240 mls/hr BEDTIME IV 04/17/18 21:00 04/21/18 21:14 Lidocaine (Lidoderm 5% PATCH) 1 patch DAILY TDERMAL 04/15/18 14:30 05/15/18 14:29 04/16/18 08:13 Methadone HCl (Methadone HCl) 100 mg DAILY ORAL 04/16/18 09:00 04/23/18 08:59 04/16/18 08:34 Metoclopramide HCl (Reglan) 10 mg Q6H PRN IVP Nausea and Vomiting 04/15/18 17:30 05/15/18 17:29 Morphine Sulfate (Morphine Sulfate) 1 mg Q3H PRN IVP Pain scale 1-3 04/15/18 17:30 04/22/18 17:29 Morphine Sulfate (Morphine Sulfate) 2 mg Q3H PRN IVP Moderate Pain (Pain Scale 4-6) 04/15/18 17:30 04/22/18 17:29 Morphine Sulfate (Morphine Sulfate) 4 mg Q4H PRN IVP Moderate Pain (Pain Scale 4-6) 04/15/18 15:15 04/22/18 15:14 Naloxone HCl (Narcan) 0.2 mg Q4H PRN IVP RESPRITORY DISTRESS 04/15/18 15:15 05/15/18 15:14 Pantoprazole (Protonix) 40 mg DAILY IVP 04/17/18 09:00 05/15/18 15:59 Polyethylene Glycol (Miralax) 17 gm HSPRN PRN ORAL Constipation 04/15/18 21:00 05/15/18 20:59 Sodium Chloride 1,000 ml @ 50 mls/hr Q20H IV 04/16/18 12:30 05/16/18 12:29 04/16/18 12:32 Zolpidem Tartrate (Ambien) 5 mg HSPRN PRN ORAL Insomnia 04/15/18 21:00 04/22/18 20:59 Rufina Venegas MD Apr 16, 2018 18:26
[2018-04-16 20:00] VITALS: BP 144/81
[2018-04-17] VITALS: BP 126/73
[2018-04-17 04:00] VITALS: BP 152/86
--- NOTE | 2018-04-17 04:45 | Consultation ---
DATE OF CONSULTATION: 04/17/2018 "NOTE: VERY POOR AUDIO QUALITY" ENDOCRINOLOGY CONSULTATION CONSULTING PHYSICIAN: Nick Adame M.D. REFERRING PHYSICIAN: Juanito Frederick D.O. REASON FOR CONSULTATION: The patient . Nick Adame M.D. DR: TERRY JOB#: [id number] CC:
[2018-04-17 05:53] LABS: HEMATOCRIT 28.9 % (37.0-47.0); HEMOGLOBIN 8.5 G/DL (12.0-16.0); MEAN CORPUSCULAR VOLUME 70 FL (80-99); PLATELET COUNT 279 K/UL (150-450); RED BLOOD COUNT 4.12 M/UL (4.20-5.40); RED CELL DISTRIBUTION WIDTH 17.3 % (11.6-14.8); WHITE BLOOD COUNT 16.7 K/UL (4.8-10.8)
--- NOTE | 2018-04-17 06:37 | General Progress Note ---
Assessment/Plan Problem List: (1) Femur fracture, right ICD Codes: S72.91XA - Unspecified fracture of right femur, initial encounter for closed fracture SNOMED: 90563055 Qualifiers: Qualified Codes: S72.141A - Displaced intertrochanteric fracture of right femur, initial encounter for closed fracture (2) Anemia ICD Codes: D64.9 - Anemia, unspecified SNOMED: 015858139 Qualifiers: Qualified Codes: D64.9 - Anemia, unspecified (3) CKD (chronic kidney disease) ICD Codes: N18.9 - Chronic kidney disease, unspecified SNOMED: 380818696 Qualifiers: Qualified Codes: N18.9 - Chronic kidney disease, unspecified (4) Intertrochanteric fracture of right femur ICD Codes: S72.141A - Displaced intertrochanteric fracture of right femur, initial encounter for closed fracture SNOMED: 828463397 Qualifiers: Qualified Codes: S72.141A - Displaced intertrochanteric fracture of right femur, initial encounter for closed fracture Status: stable, progressing Assessment/Plan ot pt diet pain control cbc bmp am brotman aru eval Subjective Constitutional: Reports: weakness Allergies: Coded Allergies: PENICILLINS (Unverified Allergy, Unknown, 04/14/18) All Systems: reviewed and negative except above Subjective o2nc sleepy calm Objective Last 24 Hour Vital Signs Date Time Temp Pulse Resp B/P (MAP) Pulse Ox O2 Delivery O2 Flow Rate FiO2 04/17/18 06:19 98.3 04/17/18 05:49 98.3 04/17/18 05:33 98.3 04/17/18 04:34 98.3 04/17/18 04:00 98.7 82 18 152/86 (108) 97 98.7 04/17/18 00:00 98.3 84 19 126/73 (90) 97 98.3 04/16/18 22:24 Room Air 04/16/18 20:00 98.8 81 20 144/81 (102) 96 98.8 04/16/18 15:40 98.2 85 20 133/78 (96) 100 98.2 04/16/18 11:43 97.9 84 20 134/77 (96) 100 97.9 04/16/18 08:35 97.5 92 20 140/80 (100) 100 97.5 04/16/18 08:26 Room Air Intake and Output 04/16/18 04/17/18 19:00 07:00 Intake Total 990 ml 550 ml Output Total 300 ml 750 ml Balance 690 ml -200 ml Intake Oral 480 ml IV Total 510 ml 550 ml Output Urine Total 300 ml 750 ml # Voids 1 Laboratory Tests 04/16/18 07:04: White Blood Count 9.2#, Red Blood Count 4.22, Hemoglobin 8.7L, Hematocrit 29.7L , Mean Corpuscular Volume 70L, Mean Corpuscular Hemoglobin 20.7L, Mean Corpuscular Hemoglobin Concent 29.5L, Red Cell Distribution Width 16.9H, Platelet Count 222, Mean Platelet Volume 7.5, Neutrophils (%) (Auto) , Lymphocytes (%) (Auto) , Monocytes (%) (Auto) , Eosinophils (%) (Auto) , Basophils (%) (Auto) , Differential Total Cells Counted 100, Neutrophils % ( Manual) 91H, Lymphocytes % (Manual) 7L, Monocytes % (Manual) 2, Eosinophils % ( Manual) 0, Basophils % (Manual) 0, Band Neutrophils 0, Platelet Estimate Adequate, Platelet Morphology Normal, Polychromasia 1+, Hypochromasia 2+, Anisocytosis 1+, Microcytosis 2+, Erythrocyte Sedimentation Rate 32H, Reticulocyte Count 1.0, Prothrombin Time 11.4, Prothromb Time International Ratio 1.1, Activated Partial Thromboplast Time 24, Sodium Level 137, Potassium Level 4.2, Chloride Level 104, Carbon Dioxide Level 21, Anion Gap 12, Blood Urea Nitrogen 21H, Creatinine 1.9H, Estimat Glomerular Filtration Rate 32.2, Glucose Level 204#H, Hemoglobin A1c 6.4H, Uric Acid 7.4H, Calcium Level 8.5, Phosphorus Level 2.8, Magnesium Level 2.0, Iron Level 44L, Total Iron Binding Capacity 436, Percent Iron Saturation 10L, Unsaturated Iron Binding 392H, Ferritin 10, Total Bilirubin 0.4, Aspartate Amino Transf (AST/SGOT) 30, Alanine Aminotransferase (ALT/SGPT) 22, Alkaline Phosphatase 82, Lactate Dehydrogenase 249H, Total Protein 7.9, Albumin 2.6L, Globulin 5.3, Albumin/Globulin Ratio 0.5L , Carcinoembryonic Antigen [Pending], Vitamin B12 Level 937, Folate 9.3, Thyroid Stimulating Hormone (TSH) 0.189L 04/17/18 05:35: White Blood Count 16.7#H, Red Blood Count 4.12L, Hemoglobin 8.5L, Hematocrit 28.9L, Mean Corpuscular Volume 70L, Mean Corpuscular Hemoglobin 20.7L, Mean Corpuscular Hemoglobin Concent 29.5L, Red Cell Distribution Width 17.3H, Platelet Count 279, Mean Platelet Volume 7.7, Neutrophils (%) (Auto) , Lymphocytes (%) (Auto) , Monocytes (%) (Auto) , Eosinophils (%) (Auto) , Basophils (%) (Auto) , Neutrophils % (Manual) [Pending], Lymphocytes % (Manual) [Pending], Platelet Estimate [Pending], Platelet Morphology [Pending], Sodium Level [Pending], Potassium Level [Pending], Chloride Level [Pending], Carbon Dioxide Level [Pending], Blood Urea Nitrogen [Pending], Creatinine [Pending], Estimat Glomerular Filtration Rate [Pending], Glucose Level [Pending], Uric Acid [Pending], Calcium Level [Pending], Phosphorus Level [Pending], Magnesium Level [Pending], Total Bilirubin [Pending], Aspartate Amino Transf (AST/SGOT) [ Pending], Alanine Aminotransferase (ALT/SGPT) [Pending], Alkaline Phosphatase [ Pending], Total Protein [Pending], Albumin [Pending], Globulin [Pending], Thyroid Stimulating Hormone (TSH) [Pending], Troponin I [Pending], Triglycerides Level [Pending], Cholesterol Level [Pending], LDL Cholesterol [ Pending], HDL Cholesterol [Pending], Cholesterol/HDL Ratio [Pending] Height (Feet): 5 Height (Inches): 5.00 Weight (Pounds): 109 General Appearance: lethargic EENT: normal ENT inspection Neck: normal alignment Cardiovascular: normal peripheral pulses, normal rate, regular rhythm Respiratory/Chest: chest wall non-tender, lungs clear, normal breath sounds Abdomen: normal bowel sounds, non tender, soft Extremities: normal inspection Edema: no edema noted Arm (L), no edema noted Arm (R), no edema noted Leg (L), no edema noted Leg (R), no edema noted Pedal (L), no edema noted Pedal (R), no edema noted Generalized Neurologic: motor weakness Skin: normal pigmentation, warm/dry Juanito Jreome DO Apr 17, 2018 06:37
[2018-04-17 06:40] LABS: ALANINE AMINOTRANSFERASE 17 U/L (12-78); ALBUMIN 2.5 G/DL (3.4-5.0); ALBUMIN/GLOBULIN RATIO 0.5 (1.0-2.7); ALKALINE PHOSPHATASE 72 U/L (46-116); ANION GAP 7 mmol/L (5-15); ASPARTATE AMINO TRANSFERASE 28 U/L (15-37); BILIRUBIN,TOTAL 0.1 MG/DL (0.2-1.0); BLOOD UREA NITROGEN 29 mg/dL (7-18); CALCIUM 8.5 MG/DL (8.5-10.1); CARBON DIOXIDE 24 MMOL/L (21-32); CHLORIDE 107 MMOL/L (98-107); CHOLESTEROL 73 MG/DL (< 200); CREATININE 1.7 MG/DL (0.55-1.30); HDL CHOLESTEROL 45 MG/DL (40-60); PHOSPHORUS 3.4 MG/DL (2.5-4.9); POTASSIUM 5.2 MMOL/L (3.5-5.1); SODIUM 138 MMOL/L (136-145); TRIGLYCERIDES 42 MG/DL (30-150)
[2018-04-17 08:00] VITALS: BP 143/90
[2018-04-17] MEDS ORDERED: Pantoprazole Inj IVP SCH (09:00)
[2018-04-17] MEDS: Docusate 100mg cap ORAL SCH ×3 (09:01→17:03)
[2018-04-17] MEDS: Heparin 5000 units/ml inj SUBQ SCH ×2 (09:06→22:30)
--- NOTE | 2018-04-17 11:49 | Nephrology Progress Note ---
Assessment/Plan Problem List: (1) Femur fracture, right Assessment: surgery 04/15 (2) CKD (chronic kidney disease) (3) Anemia Assessment: low MCV (4) Lytic lesion of bone on x-ray (5) Compression fracture (6) Hypertension (7) Hypoalbuminemia Assessment stable- Cr lower Hgb higher Plan IV Iron- avoid nephrotoxics Post op care monitor renal parameters BP control check urine culture check Thyroid panel Subjective ROS Limited/Unobtainable: No Constitutional: Reports: malaise, weakness Objective Objective Last 24 Hour Vital Signs Date Time Temp Pulse Resp B/P (MAP) Pulse Ox O2 Delivery O2 Flow Rate FiO2 04/17/18 08:08 Room Air 04/17/18 08:00 97.9 83 20 143/90 (107) 97 97.9 04/17/18 06:19 98.3 04/17/18 05:49 98.3 04/17/18 05:33 98.3 04/17/18 04:34 98.3 04/17/18 04:00 98.7 82 18 152/86 (108) 97 98.7 04/17/18 00:00 98.3 84 19 126/73 (90) 97 98.3 04/16/18 22:24 Room Air 04/16/18 20:00 98.8 81 20 144/81 (102) 96 98.8 04/16/18 15:40 98.2 85 20 133/78 (96) 100 98.2 Intake and Output 04/16/18 04/17/18 19:00 07:00 Intake Total 990 ml 600 ml Output Total 300 ml 750 ml Balance 690 ml -150 ml Intake Oral 480 ml IV Total 510 ml 600 ml Output Urine Total 300 ml 750 ml # Voids 1 Laboratory Tests 04/17/18 05:35: White Blood Count 16.7#H, Red Blood Count 4.12L, Hemoglobin 8.5L, Hematocrit 28.9L, Mean Corpuscular Volume 70L, Mean Corpuscular Hemoglobin 20.7L, Mean Corpuscular Hemoglobin Concent 29.5L, Red Cell Distribution Width 17.3H, Platelet Count 279, Mean Platelet Volume 7.7, Neutrophils (%) (Auto) , Lymphocytes (%) (Auto) , Monocytes (%) (Auto) , Eosinophils (%) (Auto) , Basophils (%) (Auto) , Differential Total Cells Counted 100, Neutrophils % ( Manual) 93H, Lymphocytes % (Manual) 4L, Monocytes % (Manual) 3, Eosinophils % ( Manual) 0, Basophils % (Manual) 0, Band Neutrophils 0, Platelet Estimate Adequate, Platelet Morphology Normal, Polychromasia 1+, Hypochromasia 2+, Anisocytosis 1+, Microcytosis 2+, Sodium Level 138, Potassium Level 5.2H, Chloride Level 107, Carbon Dioxide Level 24, Anion Gap 7, Blood Urea Nitrogen 29H, Creatinine 1.7H, Estimat Glomerular Filtration Rate 36.7, Glucose Level 117H, Uric Acid 6.5, Calcium Level 8.5, Phosphorus Level 3.4, Magnesium Level 1.9, Total Bilirubin 0.1L, Aspartate Amino Transf (AST/SGOT) 28, Alanine Aminotransferase (ALT/SGPT) 17, Alkaline Phosphatase 72, Troponin I 0.000, Total Protein 7.6, Albumin 2.5L, Globulin 5.1, Albumin/Globulin Ratio 0.5L, Triglycerides Level 42, Cholesterol Level 73, LDL Cholesterol 30, HDL Cholesterol 45, Cholesterol/HDL Ratio 1.6L, Thyroid Stimulating Hormone (TSH) 0.112L Height (Feet): 5 Height (Inches): 5.00 Weight (Pounds): 109 General Appearance: no apparent distress Cardiovascular: normal rate Respiratory/Chest: lungs clear Abdomen: soft Pasquale Ross MD Apr 17, 2018 11:49
[2018-04-17 12:00] VITALS: BP 147/92
--- NOTE | 2018-04-17 12:26 | Pulmonology Progress Note ---
Assessment/Plan Problems: (1) Hip fracture, right (2) Compression fracture (3) Anemia (4) Lytic lesion of bone on x-ray (5) Diabetes (6) Hypoalbuminemia Assessment/Plan all reviewed symptomatic treatment check electrolytes anemia w/u pain control renal w/u dc planning Subjective ROS Limited/Unobtainable: No Constitutional: Reports: no symptoms Respiratory: Reports: no symptoms Allergies: Coded Allergies: PENICILLINS (Unverified Allergy, Unknown, 04/14/18) Objective Last 24 Hour Vital Signs Date Time Temp Pulse Resp B/P (MAP) Pulse Ox O2 Delivery O2 Flow Rate FiO2 04/17/18 08:08 Room Air 04/17/18 08:00 97.9 83 20 143/90 (107) 97 97.9 04/17/18 06:19 98.3 04/17/18 05:49 98.3 04/17/18 05:33 98.3 04/17/18 04:34 98.3 04/17/18 04:00 98.7 82 18 152/86 (108) 97 98.7 04/17/18 00:00 98.3 84 19 126/73 (90) 97 98.3 04/16/18 22:24 Room Air 04/16/18 20:00 98.8 81 20 144/81 (102) 96 98.8 04/16/18 15:40 98.2 85 20 133/78 (96) 100 98.2 Intake and Output 04/16/18 04/17/18 19:00 07:00 Intake Total 990 ml 600 ml Output Total 300 ml 750 ml Balance 690 ml -150 ml Intake Oral 480 ml IV Total 510 ml 600 ml Output Urine Total 300 ml 750 ml # Voids 1 General Appearance: cachetic HEENT: normocephalic, atraumatic Breasts: no masses Cardiovascular: normal peripheral pulses Abdomen: no scars Genitourinary: normal external genitalia Extremities: no clubbing Skin: no rash Microbiology Date/Time Source Procedure Growth Status 04/16/18 14:55 External Cath Urine Culture - Preliminary NO GROWTH Resulted Laboratory Tests 04/17/18 05:35: White Blood Count 16.7#H, Red Blood Count 4.12L, Hemoglobin 8.5L, Hematocrit 28.9L, Mean Corpuscular Volume 70L, Mean Corpuscular Hemoglobin 20.7L, Mean Corpuscular Hemoglobin Concent 29.5L, Red Cell Distribution Width 17.3H, Platelet Count 279, Mean Platelet Volume 7.7, Neutrophils (%) (Auto) , Lymphocytes (%) (Auto) , Monocytes (%) (Auto) , Eosinophils (%) (Auto) , Basophils (%) (Auto) , Differential Total Cells Counted 100, Neutrophils % ( Manual) 93H, Lymphocytes % (Manual) 4L, Monocytes % (Manual) 3, Eosinophils % ( Manual) 0, Basophils % (Manual) 0, Band Neutrophils 0, Platelet Estimate Adequate, Platelet Morphology Normal, Polychromasia 1+, Hypochromasia 2+, Anisocytosis 1+, Microcytosis 2+, Sodium Level 138, Potassium Level 5.2H, Chloride Level 107, Carbon Dioxide Level 24, Anion Gap 7, Blood Urea Nitrogen 29H, Creatinine 1.7H, Estimat Glomerular Filtration Rate 36.7, Glucose Level 117H, Uric Acid 6.5, Calcium Level 8.5, Phosphorus Level 3.4, Magnesium Level 1.9, Total Bilirubin 0.1L, Aspartate Amino Transf (AST/SGOT) 28, Alanine Aminotransferase (ALT/SGPT) 17, Alkaline Phosphatase 72, Troponin I 0.000, Total Protein 7.6, Albumin 2.5L, Globulin 5.1, Albumin/Globulin Ratio 0.5L, Triglycerides Level 42, Cholesterol Level 73, LDL Cholesterol 30, HDL Cholesterol 45, Cholesterol/HDL Ratio 1.6L, Thyroid Stimulating Hormone (TSH) 0.112L Current Medications Medications (Trade) Dose Ordered Sig/Deysi Route PRN Reason Start Time Stop Time Status Last Admin Dose Admin Acetaminophen (Tylenol) 650 mg Q4H PRN ORAL fever 04/15/18 08:00 05/15/18 07:59 Acetaminophen/ Hydrocodone Bitart ([place] 5/325) 2 tab Q6H PRN ORAL Severe Pain (Pain Scale 7-10) 04/15/18 17:30 04/22/18 17:29 04/17/18 04:34 Docusate Sodium (Colace) 100 mg THREE TIMES A DAY ORAL 04/15/18 18:00 05/15/18 17:59 04/17/18 09:01 Famotidine (Pepcid) 20 mg BID ORAL 04/17/18 12:30 05/17/18 12:29 Heparin Sodium (Porcine) (Heparin 5000 units/ml) 5,000 units EVERY 12 HOURS SUBQ 04/15/18 09:00 05/15/18 08:59 04/17/18 09:06 Hydromorphone HCl (Dilaudid) 2 mg Q4H PRN IVP Severe Pain (Pain Scale 7-10) 04/15/18 17:15 04/22/18 17:14 04/17/18 05:49 Iron Sucrose 100 mg/Sodium Chloride 60 ml @ 240 mls/hr BEDTIME IV 04/17/18 21:00 04/21/18 21:14 Lidocaine (Lidoderm 5% PATCH) 1 patch DAILY TDERMAL 04/15/18 14:30 05/15/18 14:29 04/17/18 09:02 Methadone HCl (Methadone HCl) 100 mg DAILY ORAL 04/16/18 09:00 04/23/18 08:59 04/17/18 09:01 Metoclopramide HCl (Reglan) 10 mg Q6H PRN IVP Nausea and Vomiting 04/15/18 17:30 05/15/18 17:29 Morphine Sulfate (Morphine Sulfate) 1 mg Q3H PRN IVP Pain scale 1-3 04/15/18 17:30 04/22/18 17:29 Morphine Sulfate (Morphine Sulfate) 2 mg Q3H PRN IVP Moderate Pain (Pain Scale 4-6) 04/15/18 17:30 04/22/18 17:29 Morphine Sulfate (Morphine Sulfate) 4 mg Q4H PRN IVP Moderate Pain (Pain Scale 4-6) 04/15/18 15:15 04/22/18 15:14 Naloxone HCl (Narcan) 0.2 mg Q4H PRN IVP RESPRITORY DISTRESS 04/15/18 15:15 05/15/18 15:14 Polyethylene Glycol (Miralax) 17 gm HSPRN PRN ORAL Constipation 04/15/18 21:00 05/15/18 20:59 Sodium Chloride 1,000 ml @ 50 mls/hr Q20H IV 04/16/18 12:30 05/16/18 12:29 04/17/18 06:39 Zolpidem Tartrate (Ambien) 5 mg HSPRN PRN ORAL Insomnia 04/15/18 21:00 04/22/18 20:59 Rufina Venegas MD Apr 17, 2018 12:26
--- NOTE | 2018-04-17 14:37 | General Progress Note ---
Assessment/Plan Assessment/Plan (1) Right hip fracture s/p ORIF (2) Right hip pain s/p fall (3) Thoracic compression fracture (4) H/o heroin abuse on methadone maintenance Pt will be continued on Dilaudid reduced to 1mg IV Q4H PRN severe pain [place] 10/325mg 1 tab Q6H PRN Moderate pain. We will discontinue Morphine. Continued the methadone. D/w Dr. Drummond and he concurred. Subjective Date patient seen: Apr 17, 2018 Time patient seen: 21:50 - pm Allergies: Coded Allergies: PENICILLINS (Unverified Allergy, Unknown, 04/14/18) Subjective REVIEW OF SYSTEMS: Denies rash, fever, chills, sweating, dizziness, drowsiness, blurred vision, sore throat, or change in weight. No shortness of breath or chest pain. No nausea, vomiting, diarrhea, or blood in the stool or urine. No bowel or bladder incontinence. No dysuria. She is complaining of right hip pain. SUBJECTIVE: Patient is in bed and is s/p ORIF. She has been tolerating the pain on the Dilaudid and [place]. Methadone as scheduled. MRI reviewed showing chronic Thoracic compression fx. Objective Last 24 Hour Vital Signs Date Time Temp Pulse Resp B/P (MAP) Pulse Ox O2 Delivery O2 Flow Rate FiO2 04/17/18 12:00 98.4 82 20 147/92 (110) 95 98.4 04/17/18 08:08 Room Air 04/17/18 08:00 97.9 83 20 143/90 (107) 97 97.9 04/17/18 06:19 98.3 04/17/18 05:49 98.3 04/17/18 05:33 98.3 04/17/18 04:34 98.3 04/17/18 04:00 98.7 82 18 152/86 (108) 97 98.7 04/17/18 00:00 98.3 84 19 126/73 (90) 97 98.3 04/16/18 22:24 Room Air 04/16/18 20:00 98.8 81 20 144/81 (102) 96 98.8 04/16/18 15:40 98.2 85 20 133/78 (96) 100 98.2 Intake and Output 04/16/18 04/17/18 19:00 07:00 Intake Total 990 ml 600 ml Output Total 300 ml 750 ml Balance 690 ml -150 ml Intake Oral 480 ml IV Total 510 ml 600 ml Output Urine Total 300 ml 750 ml # Voids 1 Laboratory Tests 04/17/18 05:35: White Blood Count 16.7#H, Red Blood Count 4.12L, Hemoglobin 8.5L, Hematocrit 28.9L, Mean Corpuscular Volume 70L, Mean Corpuscular Hemoglobin 20.7L, Mean Corpuscular Hemoglobin Concent 29.5L, Red Cell Distribution Width 17.3H, Platelet Count 279, Mean Platelet Volume 7.7, Neutrophils (%) (Auto) , Lymphocytes (%) (Auto) , Monocytes (%) (Auto) , Eosinophils (%) (Auto) , Basophils (%) (Auto) , Differential Total Cells Counted 100, Neutrophils % ( Manual) 93H, Lymphocytes % (Manual) 4L, Monocytes % (Manual) 3, Eosinophils % ( Manual) 0, Basophils % (Manual) 0, Band Neutrophils 0, Platelet Estimate Adequate, Platelet Morphology Normal, Polychromasia 1+, Hypochromasia 2+, Anisocytosis 1+, Microcytosis 2+, Sodium Level 138, Potassium Level 5.2H, Chloride Level 107, Carbon Dioxide Level 24, Anion Gap 7, Blood Urea Nitrogen 29H, Creatinine 1.7H, Estimat Glomerular Filtration Rate 36.7, Glucose Level 117H, Uric Acid 6.5, Calcium Level 8.5, Phosphorus Level 3.4, Magnesium Level 1.9, Total Bilirubin 0.1L, Aspartate Amino Transf (AST/SGOT) 28, Alanine Aminotransferase (ALT/SGPT) 17, Alkaline Phosphatase 72, Troponin I 0.000, C- Reactive Protein, Quantitative 1.8H, Total Protein 7.6, Albumin 2.5L, Globulin 5.1, Albumin/Globulin Ratio 0.5L, Triglycerides Level 42, Cholesterol Level 73, LDL Cholesterol 30, HDL Cholesterol 45, Cholesterol/HDL Ratio 1.6L, Thyroid Stimulating Hormone (TSH) 0.112L Height (Feet): 5 Height (Inches): 5.00 Weight (Pounds): 109 Objective GENERAL: Alert, awake, and oriented x3. LUNGS: Decreased breath sounds bilaterally. HEART: S1S2 Regular. ABDOMEN: Benign. EXTREMITIES: Lower extremity range of motion is decreased. The patient has tenderness to palpation to the right hip, bandages applied No cyanosis. No clubbing. No edema. NEURO: No changes. Procedure: MRI T Spine no Contrast Indication: Chronic arm and back pain Technique: Sagittal T1 fast spin echo, sagittal T2 fast echo, sagittal STIR, axial T2 fast spin echo images were obtained through the thoracic spine Comparison: Findings: Bony alignment is normal. There is loss of height anteriorly of the T3 vertebral body. There is very subtle slight anterior loss of height of the T7 and T8 vertebral bodies. These all demonstrate normal marrow signal, however. There is no evidence posterior retropulsion. Vertebral body marrow signal is overall normal. There is slight smooth kyphotic deformity. Intrinsic cord signal is normal. No significant disc bulge or protrusion, spinal stenosis, or neural foraminal narrowing noted. The included extraspinal soft tissues are unremarkable Impression: T3, T7, T8 vertebral body compression fracture deformities. Lack of marrow signal changes indicating that these are chronic. Otherwise unremarkable exam Jhony Whittaker Apr 17, 2018 14:37
[2018-04-17] MEDS ORDERED: HYDROcodone/Acetamin 10/325 tab ORAL PRN (14:45)
[2018-04-17 16:00] VITALS: BP 150/94
[2018-04-17 20:00] VITALS: BP 149/85
[2018-04-17] MEDS: Iron Sucrose 100 MG in NS 55 ML IV SCH (22:24)
[2018-04-18 00:06] VITALS: BP 156/92
[2018-04-18 04:00] VITALS: BP 151/88
[2018-04-18 06:45] LABS: HEMATOCRIT 29.1 % (37.0-47.0); HEMOGLOBIN 8.6 G/DL (12.0-16.0); MEAN CORPUSCULAR VOLUME 70 FL (80-99); PLATELET COUNT 289 K/UL (150-450); RED BLOOD COUNT 4.16 M/UL (4.20-5.40); RED CELL DISTRIBUTION WIDTH 17.1 % (11.6-14.8); WHITE BLOOD COUNT 14.9 K/UL (4.8-10.8)
[2018-04-18 07:06] LABS: ALANINE AMINOTRANSFERASE 18 U/L (12-78); ALBUMIN 2.5 G/DL (3.4-5.0); ALBUMIN/GLOBULIN RATIO 0.5 (1.0-2.7); ALKALINE PHOSPHATASE 74 U/L (46-116); ANION GAP 9 mmol/L (5-15); ASPARTATE AMINO TRANSFERASE 28 U/L (15-37); BILIRUBIN,TOTAL 0.2 MG/DL (0.2-1.0); BLOOD UREA NITROGEN 38 mg/dL (7-18); CALCIUM 8.7 MG/DL (8.5-10.1); CARBON DIOXIDE 24 MMOL/L (21-32); CHLORIDE 106 MMOL/L (98-107); CREATININE 1.4 MG/DL (0.55-1.30); PHOSPHORUS 2.4 MG/DL (2.5-4.9); POTASSIUM 4.9 MMOL/L (3.5-5.1); SODIUM 138 MMOL/L (136-145)
[2018-04-18 08:00] VITALS: BP 155/98
--- NOTE | 2018-04-18 08:32 | General Progress Note ---
Assessment/Plan Assessment/Plan (1) Right hip fracture s/p ORIF (2) Right hip pain s/p fall (3) Thoracic compression fracture (4) H/o heroin abuse on methadone maintenance Pt will be continued on methadone, Dilaudid and [place]. D/w Dr. Drummond and he concurred. Subjective Date patient seen: Apr 18, 2018 Time patient seen: 07:15 - am Allergies: Coded Allergies: PENICILLINS (Unverified Allergy, Unknown, 04/14/18) Subjective REVIEW OF SYSTEMS: Denies rash, fever, chills, sweating, dizziness, drowsiness, blurred vision, sore throat, or change in weight. No shortness of breath or chest pain. No nausea, vomiting, diarrhea, or blood in the stool or urine. No bowel or bladder incontinence. No dysuria. She is complaining of right hip pain. SUBJECTIVE: Patient reports that her pain has been well tolerated on the Dilaudid and [place] with Methadone scheduled. She has no new complaints. Objective Last 24 Hour Vital Signs Date Time Temp Pulse Resp B/P (MAP) Pulse Ox O2 Delivery O2 Flow Rate FiO2 04/18/18 08:00 98.2 82 18 155/98 (117) 98 98.2 04/18/18 04:00 97.2 77 20 151/88 (109) 99 97.2 04/18/18 00:06 98.2 89 20 156/92 (113) 92 98.2 04/17/18 23:44 98.3 04/17/18 23:14 98.3 04/17/18 21:00 Room Air 04/17/18 20:00 98.1 88 20 149/85 (106) 95 98.1 04/17/18 16:00 98.3 87 20 150/94 (112) 100 98.3 04/17/18 12:00 98.4 82 20 147/92 (110) 95 98.4 Intake and Output 04/17/18 04/18/18 19:00 07:00 Intake Total 980 ml 280 ml Output Total 500 ml 600 ml Balance 480 ml -320 ml Intake Oral 480 ml 120 ml IV Total 500 ml 160 ml Output Urine Total 500 ml 600 ml Laboratory Tests 04/18/18 05:45: White Blood Count 14.9H, Red Blood Count 4.16L, Hemoglobin 8.6L, Hematocrit 29.1L, Mean Corpuscular Volume 70L, Mean Corpuscular Hemoglobin 20.7L, Mean Corpuscular Hemoglobin Concent 29.6L, Red Cell Distribution Width 17.1H, Platelet Count 289, Mean Platelet Volume 7.8, Neutrophils (%) (Auto) , Lymphocytes (%) (Auto) , Monocytes (%) (Auto) , Eosinophils (%) (Auto) , Basophils (%) (Auto) , Neutrophils % (Manual) [Pending], Lymphocytes % (Manual) [Pending], Platelet Estimate [Pending], Platelet Morphology [Pending], Sodium Level 138, Potassium Level 4.9, Chloride Level 106, Carbon Dioxide Level 24, Anion Gap 9, Blood Urea Nitrogen 38H, Creatinine 1.4H, Estimat Glomerular Filtration Rate 45.8, Glucose Level 111H, Calcium Level 8.7, Phosphorus Level 2.4L, Magnesium Level 1.9, Total Bilirubin 0.2, Aspartate Amino Transf (AST/SGOT ) 28, Alanine Aminotransferase (ALT/SGPT) 18, Alkaline Phosphatase 74, Pro-B- Type Natriuretic Peptide 933H, Total Protein 7.5, Albumin 2.5L, Globulin 5.0, Albumin/Globulin Ratio 0.5L, Free Thyroxine 1.12, Triiodothyonine (T3) [Pending] , Free Triiodothyronine 1.5L, Triiodothyronine (T3) Uptake [Pending] Height (Feet): 5 Height (Inches): 5.00 Weight (Pounds): 109 Objective GENERAL: Alert, awake, and oriented x3. LUNGS: Decreased breath sounds bilaterally. HEART: S1S2 Regular. ABDOMEN: Benign. EXTREMITIES: Lower extremity range of motion is decreased. The patient has tenderness to palpation to the right hip, bandages applied No cyanosis. No clubbing. No edema. NEURO: No changes. Procedure: MRI T Spine no Contrast Indication: Chronic arm and back pain Technique: Sagittal T1 fast spin echo, sagittal T2 fast echo, sagittal STIR, axial T2 fast spin echo images were obtained through the thoracic spine Comparison: Findings: Bony alignment is normal. There is loss of height anteriorly of the T3 vertebral body. There is very subtle slight anterior loss of height of the T7 and T8 vertebral bodies. These all demonstrate normal marrow signal, however. There is no evidence posterior retropulsion. Vertebral body marrow signal is overall normal. There is slight smooth kyphotic deformity. Intrinsic cord signal is normal. No significant disc bulge or protrusion, spinal stenosis, or neural foraminal narrowing noted. The included extraspinal soft tissues are unremarkable Impression: T3, T7, T8 vertebral body compression fracture deformities. Lack of marrow signal changes indicating that these are chronic. Otherwise unremarkable exam Jhony Whittaker Apr 18, 2018 08:32
--- NOTE | 2018-04-18 08:35 | Nephrology Progress Note ---
Assessment/Plan Problem List: (1) Femur fracture, right Assessment: surgery 04/15 (2) CKD (chronic kidney disease) (3) Anemia Assessment: low MCV (4) Lytic lesion of bone on x-ray (5) Compression fracture (6) Hypertension (7) Hypoalbuminemia Assessment stable- Cr lower to 1.4 Hgb higher Plan IV Iron- Uriine culture negative avoid nephrotoxics Post op care monitor renal parameters BP control check urine culture check Thyroid panel DC planning when WBCs wnl check cxr Right kidney: Right kidney measures 9.2 x 3.6 x 5.3 cm.. no stones. No hydronephrosis. Left kidney: Somewhat limited evaluation due to body habitus and bowel gas. Kidney measures 8.6 x 4.5 x 5.0 cm. Mild dilatation of left renal ureter measuring 9 mm. No stones or masses. Bladder: Bilateral ureteral jets are seen. Urinary bladder volume 229. IMPRESSION: Mild dilatation of left renal ureter measuring 9 mm. Subjective ROS Limited/Unobtainable: No Constitutional: Reports: malaise Objective Objective Last 24 Hour Vital Signs Date Time Temp Pulse Resp B/P (MAP) Pulse Ox O2 Delivery O2 Flow Rate FiO2 04/18/18 08:00 98.2 82 18 155/98 (117) 98 98.2 04/18/18 04:00 97.2 77 20 151/88 (109) 99 97.2 04/18/18 00:06 98.2 89 20 156/92 (113) 92 98.2 04/17/18 23:44 98.3 04/17/18 23:14 98.3 04/17/18 21:00 Room Air 04/17/18 20:00 98.1 88 20 149/85 (106) 95 98.1 04/17/18 16:00 98.3 87 20 150/94 (112) 100 98.3 04/17/18 12:00 98.4 82 20 147/92 (110) 95 98.4 Intake and Output 04/17/18 04/18/18 19:00 07:00 Intake Total 980 ml 280 ml Output Total 500 ml 600 ml Balance 480 ml -320 ml Intake Oral 480 ml 120 ml IV Total 500 ml 160 ml Output Urine Total 500 ml 600 ml Laboratory Tests 04/18/18 05:45: White Blood Count 14.9H, Red Blood Count 4.16L, Hemoglobin 8.6L, Hematocrit 29.1L, Mean Corpuscular Volume 70L, Mean Corpuscular Hemoglobin 20.7L, Mean Corpuscular Hemoglobin Concent 29.6L, Red Cell Distribution Width 17.1H, Platelet Count 289, Mean Platelet Volume 7.8, Neutrophils (%) (Auto) , Lymphocytes (%) (Auto) , Monocytes (%) (Auto) , Eosinophils (%) (Auto) , Basophils (%) (Auto) , Neutrophils % (Manual) [Pending], Lymphocytes % (Manual) [Pending], Platelet Estimate [Pending], Platelet Morphology [Pending], Sodium Level 138, Potassium Level 4.9, Chloride Level 106, Carbon Dioxide Level 24, Anion Gap 9, Blood Urea Nitrogen 38H, Creatinine 1.4H, Estimat Glomerular Filtration Rate 45.8, Glucose Level 111H, Calcium Level 8.7, Phosphorus Level 2.4L, Magnesium Level 1.9, Total Bilirubin 0.2, Aspartate Amino Transf (AST/SGOT ) 28, Alanine Aminotransferase (ALT/SGPT) 18, Alkaline Phosphatase 74, Pro-B- Type Natriuretic Peptide 933H, Total Protein 7.5, Albumin 2.5L, Globulin 5.0, Albumin/Globulin Ratio 0.5L, Free Thyroxine 1.12, Triiodothyonine (T3) [Pending] , Free Triiodothyronine 1.5L, Triiodothyronine (T3) Uptake [Pending] Height (Feet): 5 Height (Inches): 5.00 Weight (Pounds): 109 General Appearance: no apparent distress Cardiovascular: normal rate Respiratory/Chest: lungs clear Abdomen: soft Objective no change Pasquale Ross MD Apr 18, 2018 08:35
[2018-04-18] MEDS: Docusate 100mg cap ORAL SCH ×3 (08:38→17:02)
[2018-04-18] MEDS: Heparin 5000 units/ml inj SUBQ SCH ×2 (08:40→20:43)
--- NOTE | 2018-04-18 08:45 | Geriatric Medicine Prog Note ---
DATE: 04/17/2018 NOTE: POOR AUDIO SUBJECTIVE: Discomfort of the . ASSESSMENT AND PLAN: . ORIF . Nick Adame M.D. DR: PAMELLA JOB#: [id number] CC:
[2018-04-18 11:48] LABS: APPEARANCE,URINE CLEAR; BILIRUBIN, URINE NEGATIVE (NEGATIVE); COLOR,URINE PALE YELLOW; GLUCOSE, URINE (UA) NEGATIVE (NEGATIVE); KETONES,URINE NEGATIVE (NEGATIVE); LEUKOCYTE ESTERASE ,URINE 1+ (NEGATIVE); NITRITE,URINE NEGATIVE (NEGATIVE); PH,URINE 6.5 (4.5-8.0); PROTEIN,URINE NEGATIVE (NEGATIVE); UROBILINOGEN,URINE NORMAL MG/DL (0.0-1.0)
[2018-04-18 12:09] VITALS: BP 158/95
--- NOTE | 2018-04-18 14:05 | General Progress Note ---
Assessment/Plan Problem List: (1) Femur fracture, right ICD Codes: S72.91XA - Unspecified fracture of right femur, initial encounter for closed fracture SNOMED: [id number] Qualifiers: Qualified Codes: S72.141A - Displaced intertrochanteric fracture of right femur, initial encounter for closed fracture (2) Anemia ICD Codes: D64.9 - Anemia, unspecified SNOMED: 364650816 Qualifiers: Qualified Codes: D64.9 - Anemia, unspecified (3) CKD (chronic kidney disease) ICD Codes: N18.9 - Chronic kidney disease, unspecified SNOMED: 035633008 Qualifiers: Qualified Codes: N18.9 - Chronic kidney disease, unspecified (4) Intertrochanteric fracture of right femur ICD Codes: S72.141A - Displaced intertrochanteric fracture of right femur, initial encounter for closed fracture SNOMED: 688520605 Qualifiers: Qualified Codes: S72.141A - Displaced intertrochanteric fracture of right femur, initial encounter for closed fracture Status: stable, progressing Assessment/Plan ot pt diet pain control cbc bmp am [place] id eval aru eval Subjective Constitutional: Reports: weakness Allergies: Coded Allergies: PENICILLINS (Unverified Allergy, Unknown, 04/14/18) All Systems: reviewed and negative except above Subjective sleepy calm Objective Last 24 Hour Vital Signs Date Time Temp Pulse Resp B/P (MAP) Pulse Ox O2 Delivery O2 Flow Rate FiO2 04/18/18 12:09 98.5 87 18 158/95 (116) 95 98.5 04/18/18 08:00 98.2 82 18 155/98 (117) 98 98.2 04/18/18 08:00 Room Air 04/18/18 04:00 97.2 77 20 151/88 (109) 99 97.2 04/18/18 00:06 98.2 89 20 156/92 (113) 92 98.2 04/17/18 23:44 98.3 04/17/18 23:14 98.3 04/17/18 21:00 Room Air 04/17/18 20:00 98.1 88 20 149/85 (106) 95 98.1 04/17/18 16:00 98.3 87 20 150/94 (112) 100 98.3 Intake and Output 04/17/18 04/18/18 19:00 07:00 Intake Total 980 ml 280 ml Output Total 500 ml 600 ml Balance 480 ml -320 ml Intake Oral 480 ml 120 ml IV Total 500 ml 160 ml Output Urine Total 500 ml 600 ml Laboratory Tests 04/18/18 05:45: White Blood Count 14.9H, Red Blood Count 4.16L, Hemoglobin 8.6L, Hematocrit 29.1L, Mean Corpuscular Volume 70L, Mean Corpuscular Hemoglobin 20.7L, Mean Corpuscular Hemoglobin Concent 29.6L, Red Cell Distribution Width 17.1H, Platelet Count 289, Mean Platelet Volume 7.8, Neutrophils (%) (Auto) , Lymphocytes (%) (Auto) , Monocytes (%) (Auto) , Eosinophils (%) (Auto) , Basophils (%) (Auto) , Differential Total Cells Counted 100, Neutrophils % ( Manual) 85H, Lymphocytes % (Manual) 13L, Monocytes % (Manual) 2, Eosinophils % ( Manual) 0, Basophils % (Manual) 0, Band Neutrophils 0, Platelet Estimate Adequate, Platelet Morphology Normal, Hypochromasia 2+, Anisocytosis 1+, Microcytosis 2+, Sodium Level 138, Potassium Level 4.9, Chloride Level 106, Carbon Dioxide Level 24, Anion Gap 9, Blood Urea Nitrogen 38H, Creatinine 1.4H, Estimat Glomerular Filtration Rate 45.8, Glucose Level 111H, Calcium Level 8.7, Phosphorus Level 2.4L, Magnesium Level 1.9, Total Bilirubin 0.2, Aspartate Amino Transf (AST/SGOT) 28, Alanine Aminotransferase (ALT/SGPT) 18, Alkaline Phosphatase 74, Pro-B-Type Natriuretic Peptide 933H, Total Protein 7.5, Albumin 2.5L, Globulin 5.0, Albumin/Globulin Ratio 0.5L, Free Thyroxine 1.12, Triiodothyonine (T3) [Pending], Free Triiodothyronine 1.5L, Triiodothyronine (T3 ) Uptake [Pending] 04/18/18 11:30: Urine Color Pale yellow, Urine Appearance Clear, Urine pH 6.5, Urine Specific [place] 1.010, Urine Protein Negative, Urine Glucose (UA) Negative, Urine Ketones Negative, Urine Occult Blood Negative, Urine Nitrite Negative, Urine Bilirubin Negative, Urine Urobilinogen Normal, Urine Leukocyte Esterase 1+H, Urine RBC 0-2, Urine WBC 0-2, Urine Squamous Epithelial Cells Occasional, Urine Bacteria Occasional Height (Feet): 5 Height (Inches): 5.00 Weight (Pounds): 109 General Appearance: lethargic EENT: normal ENT inspection Neck: normal alignment Cardiovascular: normal peripheral pulses, normal rate, regular rhythm Respiratory/Chest: chest wall non-tender, lungs clear, normal breath sounds Abdomen: normal bowel sounds, non tender, soft Extremities: normal inspection Edema: no edema noted Arm (L), no edema noted Arm (R), no edema noted Leg (L), no edema noted Leg (R), no edema noted Pedal (L), no edema noted Pedal (R), no edema noted Generalized Neurologic: responsive, motor weakness Skin: normal pigmentation, warm/dry Juanito Jerome DO Apr 18, 2018 14:05
--- NOTE | 2018-04-18 14:39 | Pulmonology Progress Note ---
Assessment/Plan Problems: (1) Intertrochanteric fracture of right femur (2) Hip fracture, right (3) Compression fracture (4) Anemia (5) Diabetes (6) Hypertension (7) Hypoalbuminemia Assessment/Plan all reviewed symptomatic treatment check electrolytes anemia w/u pain control renal w/u dc planning Subjective ROS Limited/Unobtainable: No Constitutional: Reports: no symptoms HEENT: Repors: no symptoms Respiratory: Reports: no symptoms Allergies: Coded Allergies: PENICILLINS (Unverified Allergy, Unknown, 04/14/18) Objective Last 24 Hour Vital Signs Date Time Temp Pulse Resp B/P (MAP) Pulse Ox O2 Delivery O2 Flow Rate FiO2 04/18/18 12:09 98.5 87 18 158/95 (116) 95 98.5 04/18/18 08:00 98.2 82 18 155/98 (117) 98 98.2 04/18/18 08:00 Room Air 04/18/18 04:00 97.2 77 20 151/88 (109) 99 97.2 04/18/18 00:06 98.2 89 20 156/92 (113) 92 98.2 04/17/18 23:44 98.3 04/17/18 23:14 98.3 04/17/18 21:00 Room Air 04/17/18 20:00 98.1 88 20 149/85 (106) 95 98.1 04/17/18 16:00 98.3 87 20 150/94 (112) 100 98.3 Intake and Output 04/17/18 04/18/18 19:00 07:00 Intake Total 980 ml 280 ml Output Total 500 ml 600 ml Balance 480 ml -320 ml Intake Oral 480 ml 120 ml IV Total 500 ml 160 ml Output Urine Total 500 ml 600 ml General Appearance: cachetic HEENT: normocephalic Respiratory/Chest: chest wall non-tender Breasts: no masses Cardiovascular: regularly irregular Abdomen: normal bowel sounds, no mass Extremities: no clubbing Skin: no rash Microbiology Date/Time Source Procedure Growth Status 04/16/18 14:55 External Cath Urine Culture - Preliminary NO GROWTH AFTER 24 HOURS Resulted Laboratory Tests 04/18/18 05:45: White Blood Count 14.9H, Red Blood Count 4.16L, Hemoglobin 8.6L, Hematocrit 29.1L, Mean Corpuscular Volume 70L, Mean Corpuscular Hemoglobin 20.7L, Mean Corpuscular Hemoglobin Concent 29.6L, Red Cell Distribution Width 17.1H, Platelet Count 289, Mean Platelet Volume 7.8, Neutrophils (%) (Auto) , Lymphocytes (%) (Auto) , Monocytes (%) (Auto) , Eosinophils (%) (Auto) , Basophils (%) (Auto) , Differential Total Cells Counted 100, Neutrophils % ( Manual) 85H, Lymphocytes % (Manual) 13L, Monocytes % (Manual) 2, Eosinophils % ( Manual) 0, Basophils % (Manual) 0, Band Neutrophils 0, Platelet Estimate Adequate, Platelet Morphology Normal, Hypochromasia 2+, Anisocytosis 1+, Microcytosis 2+, Sodium Level 138, Potassium Level 4.9, Chloride Level 106, Carbon Dioxide Level 24, Anion Gap 9, Blood Urea Nitrogen 38H, Creatinine 1.4H, Estimat Glomerular Filtration Rate 45.8, Glucose Level 111H, Calcium Level 8.7, Phosphorus Level 2.4L, Magnesium Level 1.9, Total Bilirubin 0.2, Aspartate Amino Transf (AST/SGOT) 28, Alanine Aminotransferase (ALT/SGPT) 18, Alkaline Phosphatase 74, Pro-B-Type Natriuretic Peptide 933H, Total Protein 7.5, Albumin 2.5L, Globulin 5.0, Albumin/Globulin Ratio 0.5L, Free Thyroxine 1.12, Triiodothyonine (T3) [Pending], Free Triiodothyronine 1.5L, Triiodothyronine (T3 ) Uptake [Pending] 04/18/18 11:30: Urine Color Pale yellow, Urine Appearance Clear, Urine pH 6.5, Urine Specific [place] 1.010, Urine Protein Negative, Urine Glucose (UA) Negative, Urine Ketones Negative, Urine Occult Blood Negative, Urine Nitrite Negative, Urine Bilirubin Negative, Urine Urobilinogen Normal, Urine Leukocyte Esterase 1+H, Urine RBC 0-2, Urine WBC 0-2, Urine Squamous Epithelial Cells Occasional, Urine Bacteria Occasional Current Medications Medications (Trade) Dose Ordered Sig/Deysi Route PRN Reason Start Time Stop Time Status Last Admin Dose Admin Acetaminophen (Tylenol) 650 mg Q4H PRN ORAL fever 04/15/18 08:00 05/15/18 07:59 Acetaminophen/ Hydrocodone Bitart ([place] 10/325) 1 tab Q6H PRN ORAL moderate pain 04/17/18 14:45 04/24/18 14:44 Docusate Sodium (Colace) 100 mg THREE TIMES A DAY ORAL 04/15/18 18:00 05/15/18 17:59 04/18/18 12:25 Famotidine (Pepcid) 20 mg BID ORAL 04/17/18 12:30 05/17/18 12:29 04/18/18 08:38 Heparin Sodium (Porcine) (Heparin 5000 units/ml) 5,000 units EVERY 12 HOURS SUBQ 04/15/18 09:00 05/15/18 08:59 04/18/18 08:40 Hydromorphone HCl (Dilaudid) 1 mg Q4H PRN IVP Severe Pain (Pain Scale 7-10) 04/17/18 15:00 04/22/18 14:59 04/17/18 23:14 Iron Sucrose 100 mg/Sodium Chloride 60 ml @ 240 mls/hr BEDTIME IV 04/17/18 21:00 04/21/18 21:14 04/17/18 22:24 Lidocaine (Lidoderm 5% PATCH) 1 patch DAILY TDERMAL 04/15/18 14:30 05/15/18 14:29 04/18/18 08:38 Methadone HCl (Methadone HCl) 100 mg DAILY ORAL 04/16/18 09:00 04/23/18 08:59 04/18/18 08:38 Metoclopramide HCl (Reglan) 10 mg Q6H PRN IVP Nausea and Vomiting 04/15/18 17:30 05/15/18 17:29 Naloxone HCl (Narcan) 0.2 mg Q4H PRN IVP RESPRITORY DISTRESS 04/15/18 15:15 05/15/18 15:14 Polyethylene Glycol (Miralax) 17 gm HSPRN PRN ORAL Constipation 04/15/18 21:00 05/15/18 20:59 Sodium Chloride 1,000 ml @ 50 mls/hr Q20H IV 04/16/18 12:30 05/16/18 12:29 04/17/18 06:39 Zolpidem Tartrate (Ambien) 5 mg HSPRN PRN ORAL Insomnia 04/15/18 21:00 04/22/18 20:59 Rufina Venegas MD Apr 18, 2018 14:39
--- NOTE | 2018-04-18 15:42 | Diagnostic Imaging Report ---
Indication: Cough Technique: XRAY Chest 1v Comparison: CT chest 04/14/2018 Findings: Heart size and mediastinal contours within normal limits. Compression fractures better appreciated on prior CT of the chest. There is linear atelectasis or scarring at the left base. This is similar to findings of the CT. Question development of a trace right pleural effusion and associated likely compressive atelectasis. No Pneumothorax Impression: * Development of trace right pleural effusion and right bibasilar opacities, likely atelectasis. Correlate clinically. * Unchanged linear atelectasis or scarring in the left base.
[2018-04-18 15:52] VITALS: BP 153/99
--- NOTE | 2018-04-18 16:24 | Diagnostic Imaging Report ---
Indication: Thyroid nodule Technique: US Thyroid Comparison: Correlation made to CT of the chest 04/14/2018 Findings: Thyroid isthmus measures approximately 3.7 mm in thickness. Echogenicity is somewhat heterogeneous. Right lobe of the thyroid measures 3.9 x 2 x 1.7 cm. Left lobe of thyroid measures 3.5 x 2.4 x 2.2 cm. Echogenicity is heterogeneous. There multiple bilateral thyroid nodules. The majority of the thyroid nodule on the right have a spongiform or mixed cystic solid with predominantly cystic component. There are are subcentimeter in size. Within the left lobe of the thyroid there is a mixed solid and cystic nodule that measures up to 1 cm in diameter. It contains a punctate echogenic focus and has smooth borders.. This is a moderately suspicious pattern. Additional mixed solid cystic or slightly hypoechoic nodules are noted, all of which are subcentimeter. IMPRESSION: Heterogeneous thyroid with bilateral nodules, majority of which are subcentimeter. Nodule in the inferior left lobe of the thyroid with moderately suspicious pattern but size under 1.5 cm. Recommend follow-up ultrasound within 6 months to assess for stability. If there is interval change this may need FNA.
--- NOTE | 2018-04-18 16:50 | Consultation ---
History of Present Illness General Date patient seen: Apr 18, 2018 Chief Complaint: Lower Extremity Injury Present Illness HPI 62 y/o F with hx of HTN, seizure disorder, CKD, anemia, prior heroin abuse now on methadone presents to ED on 04/14 with R hip pain after a fall. Found to have R hip fracture and T3, T7 and T8 compression fracture of indeterminate age. She underwent R ORIF on 04/15. ID Consulted for leukcoytosis up to 16, now improved to 14. Afebrile. u/a neg Denied LOC, MCDONALD, neck or back pain, CP, SOB, n/v/d upon admission. Allergies: Coded Allergies: PENICILLINS (Unverified Allergy, Unknown, 04/14/18) Medication History Unable to Obtain Active Prescriptions or Reported Meds Patient History Healthcare decision maker CL HALE Resuscitation status Full Code Advanced Directive on File No Patient History Narrative Pmhx: as above Shx: She has history of heroin abuse, on methadone maintenance. Positive smoking. Occasional alcohol. No current intravenous drug abuse. Fhx: non contributory Review of Systems All Other Systems: negative except mentioned in HPI Physical Exam Physical Exam Narrative CARDIOVASCULAR: No murmur. LUNGS: Distant and clear. ABDOMEN: Bowel sound positive. Nontender. Nondistended. EXTREMITIES: No cyanosis, clubbing or edema. NEUROLOGIC: The patient is slightly weak, but moves all extremities. Last 24 Hour Vital Signs Date Time Temp Pulse Resp B/P (MAP) Pulse Ox O2 Delivery O2 Flow Rate FiO2 04/18/18 15:52 97.9 89 20 153/99 (117) 98 97.9 04/18/18 12:09 98.5 87 18 158/95 (116) 95 98.5 04/18/18 08:00 98.2 82 18 155/98 (117) 98 98.2 04/18/18 08:00 Room Air 04/18/18 04:00 97.2 77 20 151/88 (109) 99 97.2 04/18/18 00:06 98.2 89 20 156/92 (113) 92 98.2 04/17/18 23:44 98.3 04/17/18 23:14 98.3 04/17/18 21:00 Room Air 04/17/18 20:00 98.1 88 20 149/85 (106) 95 98.1 Intake and Output 04/17/18 04/18/18 19:00 07:00 Intake Total 980 ml 280 ml Output Total 500 ml 600 ml Balance 480 ml -320 ml Intake Oral 480 ml 120 ml IV Total 500 ml 160 ml Output Urine Total 500 ml 600 ml Laboratory Tests Test 04/18/18 05:45 04/18/18 11:30 White Blood Count 14.9 K/UL (4.8-10.8) H Red Blood Count 4.16 M/UL (4.20-5.40) L Hemoglobin 8.6 G/DL (12.0-16.0) L Hematocrit 29.1 % (37.0-47.0) L Mean Corpuscular Volume 70 FL (80-99) L Mean Corpuscular Hemoglobin 20.7 PG (27.0-31.0) L Mean Corpuscular Hemoglobin Concent 29.6 G/DL (32.0-36.0) L Red Cell Distribution Width 17.1 % (11.6-14.8) H Platelet Count 289 K/UL (150-450) Mean Platelet Volume 7.8 FL (6.5-10.1) Neutrophils (%) (Auto) % (45.0-75.0) Lymphocytes (%) (Auto) % (20.0-45.0) Monocytes (%) (Auto) % (1.0-10.0) Eosinophils (%) (Auto) % (0.0-3.0) Basophils (%) (Auto) % (0.0-2.0) Differential Total Cells Counted 100 Neutrophils % (Manual) 85 % (45-75) H Lymphocytes % (Manual) 13 % (20-45) L Monocytes % (Manual) 2 % (1-10) Eosinophils % (Manual) 0 % (0-3) Basophils % (Manual) 0 % (0-2) Band Neutrophils 0 % (0-8) Platelet Estimate Adequate Platelet Morphology Normal Hypochromasia 2+ Anisocytosis 1+ Microcytosis 2+ Sodium Level 138 MMOL/L (136-145) Potassium Level 4.9 MMOL/L (3.5-5.1) Chloride Level 106 MMOL/L (98-107) Carbon Dioxide Level 24 MMOL/L (21-32) Anion Gap 9 mmol/L (5-15) Blood Urea Nitrogen 38 mg/dL (7-18) H Creatinine 1.4 MG/DL (0.55-1.30) H Estimat Glomerular Filtration Rate 45.8 mL/min (>60) Glucose Level 111 MG/DL (74-106) H Calcium Level 8.7 MG/DL (8.5-10.1) Phosphorus Level 2.4 MG/DL (2.5-4.9) L Magnesium Level 1.9 MG/DL (1.8-2.4) Total Bilirubin 0.2 MG/DL (0.2-1.0) Aspartate Amino Transf (AST/SGOT) 28 U/L (15-37) Alanine Aminotransferase (ALT/SGPT) 18 U/L (12-78) Alkaline Phosphatase 74 U/L (46-116) Pro-B-Type Natriuretic Peptide 933 pg/mL (0-125) H Total Protein 7.5 G/DL (6.4-8.2) Albumin 2.5 G/DL (3.4-5.0) L Globulin 5.0 g/dL Albumin/Globulin Ratio 0.5 (1.0-2.7) L Free Thyroxine 1.12 NG/DL (0.76-1.46) Triiodothyonine (T3) Pending Free Triiodothyronine 1.5 pg/mL (2.3-4.2) L Triiodothyronine (T3) Uptake Pending Urine Color Pale yellow Urine Appearance Clear Urine pH 6.5 (4.5-8.0) Urine Specific [place] 1.010 (1.005-1.035) Urine Protein Negative (NEGATIVE) Urine Glucose (UA) Negative (NEGATIVE) Urine Ketones Negative (NEGATIVE) Urine Occult Blood Negative (NEGATIVE) Urine Nitrite Negative (NEGATIVE) Urine Bilirubin Negative (NEGATIVE) Urine Urobilinogen Normal MG/DL (0.0-1.0) Urine Leukocyte Esterase 1+ (NEGATIVE) H Urine RBC 0-2 /HPF (0 - 2) Urine WBC 0-2 /HPF (0 - 2) Urine Squamous Epithelial Cells Occasional /LPF Urine Bacteria Occasional /HPF (NONE) Height (Feet): 5 Height (Inches): 5.00 Weight (Pounds): 109 Medications Current Medications Medications (Trade) Dose Ordered Sig/Deysi Route PRN Reason Start Time Stop Time Status Last Admin Dose Admin Acetaminophen (Tylenol) 650 mg Q4H PRN ORAL fever 04/15/18 08:00 05/15/18 07:59 Acetaminophen/ Hydrocodone Bitart ([place] 10/325) 1 tab Q6H PRN ORAL moderate pain 04/17/18 14:45 04/24/18 14:44 Docusate Sodium (Colace) 100 mg THREE TIMES A DAY ORAL 04/15/18 18:00 05/15/18 17:59 04/18/18 12:25 Famotidine (Pepcid) 20 mg BID ORAL 04/17/18 12:30 05/17/18 12:29 04/18/18 08:38 Heparin Sodium (Porcine) (Heparin 5000 units/ml) 5,000 units EVERY 12 HOURS SUBQ 04/15/18 09:00 05/15/18 08:59 04/18/18 08:40 Hydromorphone HCl (Dilaudid) 1 mg Q4H PRN IVP Severe Pain (Pain Scale 7-10) 04/17/18 15:00 04/22/18 14:59 04/17/18 23:14 Iron Sucrose 100 mg/Sodium Chloride 60 ml @ 240 mls/hr BEDTIME IV 04/17/18 21:00 04/21/18 21:14 04/17/18 22:24 Lidocaine (Lidoderm 5% PATCH) 1 patch DAILY TDERMAL 04/15/18 14:30 05/15/18 14:29 04/18/18 08:38 Methadone HCl (Methadone HCl) 100 mg DAILY ORAL 04/16/18 09:00 04/23/18 08:59 04/18/18 08:38 Metoclopramide HCl (Reglan) 10 mg Q6H PRN IVP Nausea and Vomiting 04/15/18 17:30 05/15/18 17:29 Naloxone HCl (Narcan) 0.2 mg Q4H PRN IVP RESPRITORY DISTRESS 04/15/18 15:15 05/15/18 15:14 Polyethylene Glycol (Miralax) 17 gm HSPRN PRN ORAL Constipation 04/15/18 21:00 05/15/18 20:59 Sodium Chloride 1,000 ml @ 50 mls/hr Q20H IV 04/16/18 12:30 05/16/18 12:29 04/17/18 06:39 Zolpidem Tartrate (Ambien) 5 mg HSPRN PRN ORAL Insomnia 04/15/18 21:00 04/22/18 20:59 Assessment/Plan Assessment/Plan Abx: Ancef 04/15-04/16 Assessment: Leukocytosis, improving- suspect likely reactive to recent surgery -afebrile -u/a neg; ucx NTD -04/18 CXR: Development of trace right pleural effusion and right bibasilar opacities, likely atelectasis. Correlate clinically. Unchanged linear atelectasis or scarring in the left base. Fall w/ resultan R hip fracture -s/p ORIF 04/15 - CT chest: Compression fracture deformity of the T3, T7, and T8 vertebral bodies. Acuity indeterminate. Consider MRI for better characterization is clinically relevant. No other acute bony trauma. Bilateral basilar pulmonary parenchymal scarring and atelectasis, and nonspecific mild interstitial septal irregularity. 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 Chronic vertebral compression fractures -MRI T spine: T3, T7, T8 vertebral body compression fracture deformities. Lack of marrow signal changes indicating that these are chronic. Otherwise unremarkable exam Thyroid nodules Thyroid US: Heterogeneous thyroid with bilateral nodules, majority of which are subcentimeter. Nodule in the inferior left lobe of the thyroid with moderately suspicious pattern but size under 1.5 cm. Recommend follow-up ultrasound within 6 months to assess for stability. If there is interval change this may need FNA. HTN seizure disorder CKD anemia prior heroin abuse now on methadone Plan: -Continue to monitor off abx -f/u cx -Monitor CBC/CMP, temperatures; Trend WBC -aspiration precautions -Cdiff if diarrhea Thank you for this consultation. Will continue to follow along with you. Discussed with LISA. Mercedes Cramer M.D. Apr 18, 2018 16:50
--- NOTE | 2018-04-18 19:20 | General Progress Note ---
Assessment/Plan Problem List: (1) Diabetes ICD Codes: E11.9 - Type 2 diabetes mellitus without complications SNOMED: 40184859 (2) Hip fracture, right ICD Codes: S72.001A - Fracture of unspecified part of neck of right femur, initial encounter for closed fracture SNOMED: 773973836 (3) CKD (chronic kidney disease) ICD Codes: N18.9 - Chronic kidney disease, unspecified SNOMED: 364681062 Qualifiers: Qualified Codes: N18.9 - Chronic kidney disease, unspecified (4) Hypertension ICD Codes: I10 - Essential (primary) hypertension SNOMED: 71439710 Assessment/Plan start blood glucose monitoring and NISS Subjective ROS Limited/Unobtainable: Yes Allergies: Coded Allergies: PENICILLINS (Unverified Allergy, Unknown, 04/14/18) Subjective events noted Objective Last 24 Hour Vital Signs Date Time Temp Pulse Resp B/P (MAP) Pulse Ox O2 Delivery O2 Flow Rate FiO2 04/18/18 15:52 97.9 89 20 153/99 (117) 98 97.9 04/18/18 12:09 98.5 87 18 158/95 (116) 95 98.5 04/18/18 08:00 98.2 82 18 155/98 (117) 98 98.2 04/18/18 08:00 Room Air 04/18/18 04:00 97.2 77 20 151/88 (109) 99 97.2 04/18/18 00:06 98.2 89 20 156/92 (113) 92 98.2 04/17/18 23:44 98.3 04/17/18 23:14 98.3 04/17/18 21:00 Room Air 04/17/18 20:00 98.1 88 20 149/85 (106) 95 98.1 Intake and Output 04/17/18 04/18/18 19:00 07:00 Intake Total 980 ml 280 ml Output Total 500 ml 600 ml Balance 480 ml -320 ml Intake Oral 480 ml 120 ml IV Total 500 ml 160 ml Output Urine Total 500 ml 600 ml Laboratory Tests 04/18/18 05:45: White Blood Count 14.9H, Red Blood Count 4.16L, Hemoglobin 8.6L, Hematocrit 29.1L, Mean Corpuscular Volume 70L, Mean Corpuscular Hemoglobin 20.7L, Mean Corpuscular Hemoglobin Concent 29.6L, Red Cell Distribution Width 17.1H, Platelet Count 289, Mean Platelet Volume 7.8, Neutrophils (%) (Auto) , Lymphocytes (%) (Auto) , Monocytes (%) (Auto) , Eosinophils (%) (Auto) , Basophils (%) (Auto) , Differential Total Cells Counted 100, Neutrophils % ( Manual) 85H, Lymphocytes % (Manual) 13L, Monocytes % (Manual) 2, Eosinophils % ( Manual) 0, Basophils % (Manual) 0, Band Neutrophils 0, Platelet Estimate Adequate, Platelet Morphology Normal, Hypochromasia 2+, Anisocytosis 1+, Microcytosis 2+, Sodium Level 138, Potassium Level 4.9, Chloride Level 106, Carbon Dioxide Level 24, Anion Gap 9, Blood Urea Nitrogen 38H, Creatinine 1.4H, Estimat Glomerular Filtration Rate 45.8, Glucose Level 111H, Calcium Level 8.7, Phosphorus Level 2.4L, Magnesium Level 1.9, Total Bilirubin 0.2, Aspartate Amino Transf (AST/SGOT) 28, Alanine Aminotransferase (ALT/SGPT) 18, Alkaline Phosphatase 74, Pro-B-Type Natriuretic Peptide 933H, Total Protein 7.5, Albumin 2.5L, Globulin 5.0, Albumin/Globulin Ratio 0.5L, Free Thyroxine 1.12, Triiodothyonine (T3) [Pending], Free Triiodothyronine 1.5L, Triiodothyronine (T3 ) Uptake [Pending] 04/18/18 11:30: Urine Color Pale yellow, Urine Appearance Clear, Urine pH 6.5, Urine Specific [place] 1.010, Urine Protein Negative, Urine Glucose (UA) Negative, Urine Ketones Negative, Urine Occult Blood Negative, Urine Nitrite Negative, Urine Bilirubin Negative, Urine Urobilinogen Normal, Urine Leukocyte Esterase 1+H, Urine RBC 0-2, Urine WBC 0-2, Urine Squamous Epithelial Cells Occasional, Urine Bacteria Occasional Height (Feet): 5 Height (Inches): 5.00 Weight (Pounds): 109 General Appearance: no apparent distress Neck: normal alignment Cardiovascular: normal rate Respiratory/Chest: lungs clear Abdomen: normal bowel sounds Objective Current Medications Medications (Trade) Dose Ordered Sig/Deysi Route PRN Reason Start Time Stop Time Status Last Admin Dose Admin Acetaminophen (Tylenol) 650 mg Q4H PRN ORAL fever 04/15/18 08:00 05/15/18 07:59 Acetaminophen/ Hydrocodone Bitart ([place] 10/325) 1 tab Q6H PRN ORAL moderate pain 04/17/18 14:45 04/24/18 14:44 Docusate Sodium (Colace) 100 mg THREE TIMES A DAY ORAL 04/15/18 18:00 05/15/18 17:59 04/18/18 17:02 Famotidine (Pepcid) 20 mg BID ORAL 04/17/18 12:30 05/17/18 12:29 04/18/18 17:02 Heparin Sodium (Porcine) (Heparin 5000 units/ml) 5,000 units EVERY 12 HOURS SUBQ 04/15/18 09:00 05/15/18 08:59 04/18/18 08:40 Hydromorphone HCl (Dilaudid) 1 mg Q4H PRN IVP Severe Pain (Pain Scale 7-10) 04/17/18 15:00 04/22/18 14:59 04/17/18 23:14 Iron Sucrose 100 mg/Sodium Chloride 60 ml @ 240 mls/hr BEDTIME IV 04/17/18 21:00 04/21/18 21:14 04/17/18 22:24 Lidocaine (Lidoderm 5% PATCH) 1 patch DAILY TDERMAL 04/15/18 14:30 05/15/18 14:29 04/18/18 08:38 Methadone HCl (Methadone HCl) 100 mg DAILY ORAL 04/16/18 09:00 04/23/18 08:59 04/18/18 08:38 Metoclopramide HCl (Reglan) 10 mg Q6H PRN IVP Nausea and Vomiting 04/15/18 17:30 05/15/18 17:29 Naloxone HCl (Narcan) 0.2 mg Q4H PRN IVP RESPRITORY DISTRESS 04/15/18 15:15 05/15/18 15:14 Polyethylene Glycol (Miralax) 17 gm HSPRN PRN ORAL Constipation 04/15/18 21:00 05/15/18 20:59 Sodium Chloride 1,000 ml @ 50 mls/hr Q20H IV 04/16/18 12:30 05/16/18 12:29 04/17/18 06:39 Zolpidem Tartrate (Ambien) 5 mg HSPRN PRN ORAL Insomnia 04/15/18 21:00 04/22/18 20:59 Item Value Date Time Glucose Level 111 MG/DL H 04/18/18 0545 Kleber Nicholas MD Apr 18, 2018 19:20
[2018-04-18 20:00] VITALS: BP 156/96
[2018-04-18] MEDS: Iron Sucrose 100 MG in NS 55 ML IV SCH (20:42)
[2018-04-18] MEDS: NovoLOG Insulin Flexpen SUBQ SCH (21:28)
[2018-04-19] VITALS: BP 156/84
[2018-04-19 04:00] VITALS: BP 144/93
[2018-04-19] MEDS: NovoLOG Insulin Flexpen SUBQ SCH ×4 (06:01→21:00)
[2018-04-19 06:31] LABS: BASOPHILS % (AUTO) 0.8 % (0.0-2.0); EOSINOPHILS % (AUTO) 0.2 % (0.0-3.0); HEMATOCRIT 29.7 % (37.0-47.0); HEMOGLOBIN 8.8 G/DL (12.0-16.0); LYMPHOCYTES % (AUTO) 12.6 % (20.0-45.0); MEAN CORPUSCULAR VOLUME 70 FL (80-99); MONOCYTES % (AUTO) 6.1 % (1.0-10.0); NEUTROPHILS % (AUTO) 80.3 % (45.0-75.0); PLATELET COUNT 283 K/UL (150-450); RED BLOOD COUNT 4.23 M/UL (4.20-5.40); RED CELL DISTRIBUTION WIDTH 18.1 % (11.6-14.8); WHITE BLOOD COUNT 12.2 K/UL (4.8-10.8)
[2018-04-19 07:09] LABS: ALANINE AMINOTRANSFERASE 24 U/L (12-78); ALBUMIN 2.7 G/DL (3.4-5.0); ALBUMIN/GLOBULIN RATIO 0.5 (1.0-2.7); ALKALINE PHOSPHATASE 74 U/L (46-116); ANION GAP 11 mmol/L (5-15); ASPARTATE AMINO TRANSFERASE 36 U/L (15-37); BILIRUBIN,TOTAL 0.2 MG/DL (0.2-1.0); BLOOD UREA NITROGEN 37 mg/dL (7-18); CALCIUM 9.1 MG/DL (8.5-10.1); CARBON DIOXIDE 22 MMOL/L (21-32); CHLORIDE 105 MMOL/L (98-107); CREATININE 1.4 MG/DL (0.55-1.30); PHOSPHORUS 2.5 MG/DL (2.5-4.9); POTASSIUM 4.4 MMOL/L (3.5-5.1); SODIUM 138 MMOL/L (136-145)
--- NOTE | 2018-04-19 07:25 | General Progress Note ---
Assessment/Plan Problem List: (1) Diabetes ICD Codes: E11.9 - Type 2 diabetes mellitus without complications SNOMED: 68402686 (2) Hip fracture, right ICD Codes: S72.001A - Fracture of unspecified part of neck of right femur, initial encounter for closed fracture SNOMED: 948281638 (3) CKD (chronic kidney disease) ICD Codes: N18.9 - Chronic kidney disease, unspecified SNOMED: 560593547 Qualifiers: Qualified Codes: N18.9 - Chronic kidney disease, unspecified (4) Hypertension ICD Codes: I10 - Essential (primary) hypertension SNOMED: 22569867 Assessment/Plan continue blood glucose monitoring and NISS ac / hs Subjective ROS Limited/Unobtainable: Yes Allergies: Coded Allergies: PENICILLINS (Unverified Allergy, Unknown, 04/14/18) Subjective events noted Objective Last 24 Hour Vital Signs Date Time Temp Pulse Resp B/P (MAP) Pulse Ox O2 Delivery O2 Flow Rate FiO2 04/19/18 04:00 98.1 95 19 144/93 (110) 100 98.1 04/19/18 00:00 97.7 98 20 156/84 (108) 98 97.7 04/18/18 21:00 Room Air 04/18/18 20:00 97.9 64 21 156/96 (116) 99 97.9 04/18/18 15:52 97.9 89 20 153/99 (117) 98 97.9 04/18/18 12:09 98.5 87 18 158/95 (116) 95 98.5 04/18/18 08:00 98.2 82 18 155/98 (117) 98 98.2 04/18/18 08:00 Room Air Intake and Output 04/18/18 04/19/18 19:00 07:00 Intake Total 830 ml 649 ml Output Total 500 ml Balance 830 ml 149 ml Intake Oral 480 ml 240 ml IV Total 350 ml 409 ml Output Urine Total 500 ml # Voids 2 Laboratory Tests 04/18/18 11:30: Urine Color Pale yellow, Urine Appearance Clear, Urine pH 6.5, Urine Specific [place] 1.010, Urine Protein Negative, Urine Glucose (UA) Negative, Urine Ketones Negative, Urine Occult Blood Negative, Urine Nitrite Negative, Urine Bilirubin Negative, Urine Urobilinogen Normal, Urine Leukocyte Esterase 1+H, Urine RBC 0-2, Urine WBC 0-2, Urine Squamous Epithelial Cells Occasional, Urine Bacteria Occasional 04/19/18 04:50: White Blood Count 12.2H, Red Blood Count 4.23, Hemoglobin 8.8L, Hematocrit 29.7L , Mean Corpuscular Volume 70L, Mean Corpuscular Hemoglobin 20.9L, Mean Corpuscular Hemoglobin Concent 29.7L, Red Cell Distribution Width 18.1H, Platelet Count 283, Mean Platelet Volume 6.7, Neutrophils (%) (Auto) 80.3H, Lymphocytes (%) (Auto) 12.6L, Monocytes (%) (Auto) 6.1, Eosinophils (%) (Auto) 0.2, Basophils (%) (Auto) 0.8, Sodium Level 138, Potassium Level 4.4, Chloride Level 105, Carbon Dioxide Level 22, Anion Gap 11, Blood Urea Nitrogen 37H, Creatinine 1.4H, Estimat Glomerular Filtration Rate 45.8, Glucose Level 110H, Calcium Level 9.1, Phosphorus Level 2.5, Magnesium Level 1.9, Total Bilirubin 0.2, Aspartate Amino Transf (AST/SGOT) 36, Alanine Aminotransferase (ALT/SGPT) 24, Alkaline Phosphatase 74, C-Reactive Protein, Quantitative 0.6, Pro-B-Type Natriuretic Peptide 867H, Total Protein 7.8, Albumin 2.7L, Globulin 5.1, Albumin /Globulin Ratio 0.5L Height (Feet): 5 Height (Inches): 5.00 Weight (Pounds): 109 General Appearance: no apparent distress Neck: normal alignment Cardiovascular: normal rate Respiratory/Chest: lungs clear Abdomen: normal bowel sounds Pelvis: normal external exam Objective Current Medications Medications (Trade) Dose Ordered Sig/Deysi Route PRN Reason Start Time Stop Time Status Last Admin Dose Admin Acetaminophen (Tylenol) 650 mg Q4H PRN ORAL fever 04/15/18 08:00 05/15/18 07:59 Acetaminophen/ Hydrocodone Bitart ([place] 10/325) 1 tab Q6H PRN ORAL moderate pain 04/17/18 14:45 04/24/18 14:44 04/19/18 00:57 Dextrose (Dextrose 50%) 25 ml STAT PRN IV Hypoglycemia 04/18/18 19:30 05/18/18 19:29 Dextrose (Dextrose 50%) 50 ml STAT PRN IV Hypoglycemia 04/18/18 19:30 05/18/18 19:29 Docusate Sodium (Colace) 100 mg THREE TIMES A DAY ORAL 04/15/18 18:00 05/15/18 17:59 04/18/18 17:02 Famotidine (Pepcid) 20 mg BID ORAL 04/17/18 12:30 05/17/18 12:29 04/18/18 17:02 Heparin Sodium (Porcine) (Heparin 5000 units/ml) 5,000 units EVERY 12 HOURS SUBQ 04/15/18 09:00 05/15/18 08:59 04/18/18 20:43 Hydromorphone HCl (Dilaudid) 1 mg Q4H PRN IVP Severe Pain (Pain Scale 7-10) 04/17/18 15:00 04/22/18 14:59 04/17/18 23:14 Insulin Aspart (NovoLOG) BEFORE MEALS AND HS SUBQ 04/18/18 21:00 05/18/18 20:59 04/18/18 21:28 Iron Sucrose 100 mg/Sodium Chloride 60 ml @ 240 mls/hr BEDTIME IV 04/17/18 21:00 04/21/18 21:14 04/18/18 20:42 Lidocaine (Lidoderm 5% PATCH) 1 patch DAILY TDERMAL 04/15/18 14:30 05/15/18 14:29 04/18/18 08:38 Methadone HCl (Methadone HCl) 100 mg DAILY ORAL 04/16/18 09:00 04/23/18 08:59 04/18/18 08:38 Metoclopramide HCl (Reglan) 10 mg Q6H PRN IVP Nausea and Vomiting 04/15/18 17:30 05/15/18 17:29 Naloxone HCl (Narcan) 0.2 mg Q4H PRN IVP RESPRITORY DISTRESS 04/15/18 15:15 05/15/18 15:14 Polyethylene Glycol (Miralax) 17 gm HSPRN PRN ORAL Constipation 04/15/18 21:00 05/15/18 20:59 Sodium Chloride 1,000 ml @ 50 mls/hr Q20H IV 04/16/18 12:30 05/16/18 12:29 04/19/18 00:01 Zolpidem Tartrate (Ambien) 5 mg HSPRN PRN ORAL Insomnia 04/15/18 21:00 04/22/18 20:59 Item Value Date Time Bedside Blood Glucose 107 mg/dl 04/19/18 0630 Bedside Blood Glucose 143 mg/dl H 04/18/182127 Kleber Nicholas MD Apr 19, 2018 07:25
--- NOTE | 2018-04-19 07:45 | General Progress Note ---
Assessment/Plan Assessment/Plan (1) Right hip fracture s/p ORIF (2) Right hip pain s/p fall (3) Thoracic compression fracture (4) H/o heroin abuse on methadone maintenance Pt will be continued on methadone, Dilaudid and Neche. D/w Dr. Drummond and he concurred. Subjective Date patient seen: Apr 19, 2018 Time patient seen: 07:15 - am Allergies: Coded Allergies: PENICILLINS (Unverified Allergy, Unknown, 04/14/18) Subjective REVIEW OF SYSTEMS: Denies rash, fever, chills, sweating, dizziness, drowsiness, blurred vision, sore throat, or change in weight. No shortness of breath or chest pain. No nausea, vomiting, diarrhea, or blood in the stool or urine. No bowel or bladder incontinence. No dysuria. She is complaining of right hip pain. SUBJECTIVE: Patient is in bed was advised to reposition in bed and continue to do PT. The pain has been stable using the Methadone daily and one Neche in the last 24hrs. She has no new complaints. Objective Last 24 Hour Vital Signs Date Time Temp Pulse Resp B/P (MAP) Pulse Ox O2 Delivery O2 Flow Rate FiO2 04/19/18 04:00 98.1 95 19 144/93 (110) 100 98.1 04/19/18 00:00 97.7 98 20 156/84 (108) 98 97.7 04/18/18 21:00 Room Air 04/18/18 20:00 97.9 64 21 156/96 (116) 99 97.9 04/18/18 15:52 97.9 89 20 153/99 (117) 98 97.9 04/18/18 12:09 98.5 87 18 158/95 (116) 95 98.5 04/18/18 08:00 98.2 82 18 155/98 (117) 98 98.2 04/18/18 08:00 Room Air Intake and Output 04/18/18 04/19/18 19:00 07:00 Intake Total 830 ml 649 ml Output Total 500 ml Balance 830 ml 149 ml Intake Oral 480 ml 240 ml IV Total 350 ml 409 ml Output Urine Total 500 ml # Voids 2 Laboratory Tests 04/18/18 11:30: Urine Color Pale yellow, Urine Appearance Clear, Urine pH 6.5, Urine Specific [place] 1.010, Urine Protein Negative, Urine Glucose (UA) Negative, Urine Ketones Negative, Urine Occult Blood Negative, Urine Nitrite Negative, Urine Bilirubin Negative, Urine Urobilinogen Normal, Urine Leukocyte Esterase 1+H, Urine RBC 0-2, Urine WBC 0-2, Urine Squamous Epithelial Cells Occasional, Urine Bacteria Occasional 04/19/18 04:50: White Blood Count 12.2H, Red Blood Count 4.23, Hemoglobin 8.8L, Hematocrit 29.7L , Mean Corpuscular Volume 70L, Mean Corpuscular Hemoglobin 20.9L, Mean Corpuscular Hemoglobin Concent 29.7L, Red Cell Distribution Width 18.1H, Platelet Count 283, Mean Platelet Volume 6.7, Neutrophils (%) (Auto) 80.3H, Lymphocytes (%) (Auto) 12.6L, Monocytes (%) (Auto) 6.1, Eosinophils (%) (Auto) 0.2, Basophils (%) (Auto) 0.8, Sodium Level 138, Potassium Level 4.4, Chloride Level 105, Carbon Dioxide Level 22, Anion Gap 11, Blood Urea Nitrogen 37H, Creatinine 1.4H, Estimat Glomerular Filtration Rate 45.8, Glucose Level 110H, Calcium Level 9.1, Phosphorus Level 2.5, Magnesium Level 1.9, Total Bilirubin 0.2, Aspartate Amino Transf (AST/SGOT) 36, Alanine Aminotransferase (ALT/SGPT) 24, Alkaline Phosphatase 74, C-Reactive Protein, Quantitative 0.6, Pro-B-Type Natriuretic Peptide 867H, Total Protein 7.8, Albumin 2.7L, Globulin 5.1, Albumin /Globulin Ratio 0.5L Height (Feet): 5 Height (Inches): 5.00 Weight (Pounds): 109 Objective GENERAL: Alert, awake, and oriented x3. LUNGS: Decreased breath sounds bilaterally. HEART: S1S2 Regular. ABDOMEN: Benign. EXTREMITIES: Lower extremity range of motion is decreased. The patient has tenderness to palpation to the right hip, bandages applied No cyanosis. No clubbing. No edema. NEURO: No changes. Procedure: MRI T Spine no Contrast Indication: Chronic arm and back pain Technique: Sagittal T1 fast spin echo, sagittal T2 fast echo, sagittal STIR, axial T2 fast spin echo images were obtained through the thoracic spine Comparison: Findings: Bony alignment is normal. There is loss of height anteriorly of the T3 vertebral body. There is very subtle slight anterior loss of height of the T7 and T8 vertebral bodies. These all demonstrate normal marrow signal, however. There is no evidence posterior retropulsion. Vertebral body marrow signal is overall normal. There is slight smooth kyphotic deformity. Intrinsic cord signal is normal. No significant disc bulge or protrusion, spinal stenosis, or neural foraminal narrowing noted. The included extraspinal soft tissues are unremarkable Impression: T3, T7, T8 vertebral body compression fracture deformities. Lack of marrow signal changes indicating that these are chronic. Otherwise unremarkable exam Jhony Whittaker Apr 19, 2018 07:45
[2018-04-19 08:00] VITALS: BP 130/88
[2018-04-19] MEDS: Heparin 5000 units/ml inj SUBQ SCH ×2 (09:28→21:17)
[2018-04-19] MEDS: Docusate 100mg cap ORAL SCH ×3 (09:37→16:53)
--- NOTE | 2018-04-19 09:54 | Nephrology Progress Note ---
Assessment/Plan Problem List: (1) Femur fracture, right Assessment: surgery 04/15 (2) CKD (chronic kidney disease) (3) Anemia Assessment: low MCV (4) Lytic lesion of bone on x-ray (5) Compression fracture (6) Hypertension (7) Hypoalbuminemia Assessment stable- Cr lower to 1.4 Hgb higher Plan aggressive breathin treatment IV Iron- Uriine culture negative avoid nephrotoxics Post op care monitor renal parameters BP control check urine culture check Thyroid panel DC planning when WBCs wnl check cxr Right kidney: Right kidney measures 9.2 x 3.6 x 5.3 cm.. no stones. No hydronephrosis. Left kidney: Somewhat limited evaluation due to body habitus and bowel gas. Kidney measures 8.6 x 4.5 x 5.0 cm. Mild dilatation of left renal ureter measuring 9 mm. No stones or masses. Bladder: Bilateral ureteral jets are seen. Urinary bladder volume 229. IMPRESSION: Mild dilatation of left renal ureter measuring 9 mm. Subjective ROS Limited/Unobtainable: No Constitutional: Reports: malaise Objective Objective Last 24 Hour Vital Signs Date Time Temp Pulse Resp B/P (MAP) Pulse Ox O2 Delivery O2 Flow Rate FiO2 04/19/18 08:00 97.5 87 20 130/88 (102) 97 97.5 04/19/18 04:00 98.1 95 19 144/93 (110) 100 98.1 04/19/18 00:00 97.7 98 20 156/84 (108) 98 97.7 04/18/18 21:00 Room Air 04/18/18 20:00 97.9 64 21 156/96 (116) 99 97.9 04/18/18 15:52 97.9 89 20 153/99 (117) 98 97.9 04/18/18 12:09 98.5 87 18 158/95 (116) 95 98.5 Intake and Output 04/18/18 04/19/18 19:00 07:00 Intake Total 830 ml 889 ml Output Total 1450 ml Balance 830 ml -561 ml Intake Oral 480 ml 480 ml IV Total 350 ml 409 ml Output Urine Total 1450 ml # Voids 2 Laboratory Tests 04/18/18 11:30: Urine Color Pale yellow, Urine Appearance Clear, Urine pH 6.5, Urine Specific [place] 1.010, Urine Protein Negative, Urine Glucose (UA) Negative, Urine Ketones Negative, Urine Occult Blood Negative, Urine Nitrite Negative, Urine Bilirubin Negative, Urine Urobilinogen Normal, Urine Leukocyte Esterase 1+H, Urine RBC 0-2, Urine WBC 0-2, Urine Squamous Epithelial Cells Occasional, Urine Bacteria Occasional 04/19/18 04:50: White Blood Count 12.2H, Red Blood Count 4.23, Hemoglobin 8.8L, Hematocrit 29.7L , Mean Corpuscular Volume 70L, Mean Corpuscular Hemoglobin 20.9L, Mean Corpuscular Hemoglobin Concent 29.7L, Red Cell Distribution Width 18.1H, Platelet Count 283, Mean Platelet Volume 6.7, Neutrophils (%) (Auto) 80.3H, Lymphocytes (%) (Auto) 12.6L, Monocytes (%) (Auto) 6.1, Eosinophils (%) (Auto) 0.2, Basophils (%) (Auto) 0.8, Sodium Level 138, Potassium Level 4.4, Chloride Level 105, Carbon Dioxide Level 22, Anion Gap 11, Blood Urea Nitrogen 37H, Creatinine 1.4H, Estimat Glomerular Filtration Rate 45.8, Glucose Level 110H, Calcium Level 9.1, Phosphorus Level 2.5, Magnesium Level 1.9, Total Bilirubin 0.2, Aspartate Amino Transf (AST/SGOT) 36, Alanine Aminotransferase (ALT/SGPT) 24, Alkaline Phosphatase 74, C-Reactive Protein, Quantitative 0.6, Pro-B-Type Natriuretic Peptide 867H, Total Protein 7.8, Albumin 2.7L, Globulin 5.1, Albumin /Globulin Ratio 0.5L Height (Feet): 5 Height (Inches): 5.00 Weight (Pounds): 109 General Appearance: no apparent distress Cardiovascular: normal rate Respiratory/Chest: decreased breath sounds Abdomen: soft Objective no change Pasquale Ross MD Apr 19, 2018 09:54
[2018-04-19 12:00] VITALS: BP 128/96
--- NOTE | 2018-04-19 14:42 | Pulmonology Progress Note ---
Assessment/Plan Problems: (1) Intertrochanteric fracture of right femur (2) Hip fracture, right (3) Compression fracture (4) Anemia (5) Diabetes (6) Hypertension (7) Hypoalbuminemia Assessment/Plan all reviewed symptomatic treatment check electrolytes anemia w/u pain control renal w/u dc planning Subjective ROS Limited/Unobtainable: No Constitutional: Reports: no symptoms HEENT: Repors: no symptoms Respiratory: Reports: no symptoms Cardiovascular: Reports: no symptoms Allergies: Coded Allergies: PENICILLINS (Unverified Allergy, Unknown, 04/14/18) Objective Last 24 Hour Vital Signs Date Time Temp Pulse Resp B/P (MAP) Pulse Ox O2 Delivery O2 Flow Rate FiO2 04/19/18 12:00 98.1 88 19 128/96 (107) 98 98.1 04/19/18 11:40 98.1 04/19/18 11:10 97.5 04/19/18 09:30 Room Air 04/19/18 08:00 97.5 87 20 130/88 (102) 97 97.5 04/19/18 04:00 98.1 95 19 144/93 (110) 100 98.1 04/19/18 00:00 97.7 98 20 156/84 (108) 98 97.7 04/18/18 21:00 Room Air 04/18/18 20:00 97.9 64 21 156/96 (116) 99 97.9 04/18/18 15:52 97.9 89 20 153/99 (117) 98 97.9 Intake and Output 04/18/18 04/19/18 19:00 07:00 Intake Total 830 ml 889 ml Output Total 1450 ml Balance 830 ml -561 ml Intake Oral 480 ml 480 ml IV Total 350 ml 409 ml Output Urine Total 1450 ml # Voids 2 General Appearance: cachetic HEENT: normocephalic, anicteric Respiratory/Chest: chest wall non-tender, lungs clear Breasts: no masses Cardiovascular: normal rate, no JVD Abdomen: normal bowel sounds Genitourinary: normal external genitalia Extremities: no clubbing Skin: no lesions Microbiology Date/Time Source Procedure Growth Status 04/16/18 14:55 External Cath Urine Culture - Final NO GROWTH AFTER 48 HOURS Complete Laboratory Tests 04/19/18 04:50: White Blood Count 12.2H, Red Blood Count 4.23, Hemoglobin 8.8L, Hematocrit 29.7L , Mean Corpuscular Volume 70L, Mean Corpuscular Hemoglobin 20.9L, Mean Corpuscular Hemoglobin Concent 29.7L, Red Cell Distribution Width 18.1H, Platelet Count 283, Mean Platelet Volume 6.7, Neutrophils (%) (Auto) 80.3H, Lymphocytes (%) (Auto) 12.6L, Monocytes (%) (Auto) 6.1, Eosinophils (%) (Auto) 0.2, Basophils (%) (Auto) 0.8, Sodium Level 138, Potassium Level 4.4, Chloride Level 105, Carbon Dioxide Level 22, Anion Gap 11, Blood Urea Nitrogen 37H, Creatinine 1.4H, Estimat Glomerular Filtration Rate 45.8, Glucose Level 110H, Calcium Level 9.1, Phosphorus Level 2.5, Magnesium Level 1.9, Total Bilirubin 0.2, Aspartate Amino Transf (AST/SGOT) 36, Alanine Aminotransferase (ALT/SGPT) 24, Alkaline Phosphatase 74, C-Reactive Protein, Quantitative 0.6, Pro-B-Type Natriuretic Peptide 867H, Total Protein 7.8, Albumin 2.7L, Globulin 5.1, Albumin /Globulin Ratio 0.5L, HIV (1&2) Antibody Rapid [Pending] Current Medications Medications (Trade) Dose Ordered Sig/Deysi Route PRN Reason Start Time Stop Time Status Last Admin Dose Admin Acetaminophen (Tylenol) 650 mg Q4H PRN ORAL fever 04/15/18 08:00 05/15/18 07:59 Acetaminophen/ Hydrocodone Bitart ([place] 10/325) 1 tab Q6H PRN ORAL moderate pain 04/17/18 14:45 04/24/18 14:44 04/19/18 00:57 Dextrose (Dextrose 50%) 25 ml STAT PRN IV Hypoglycemia 04/18/18 19:30 05/18/18 19:29 Dextrose (Dextrose 50%) 50 ml STAT PRN IV Hypoglycemia 04/18/18 19:30 05/18/18 19:29 Docusate Sodium (Colace) 100 mg THREE TIMES A DAY ORAL 04/15/18 18:00 05/15/18 17:59 04/19/18 14:33 Famotidine (Pepcid) 20 mg BID ORAL 04/17/18 12:30 05/17/18 12:29 04/19/18 09:27 Heparin Sodium (Porcine) (Heparin 5000 units/ml) 5,000 units EVERY 12 HOURS SUBQ 04/15/18 09:00 05/15/18 08:59 04/19/18 09:28 Hydromorphone HCl (Dilaudid) 1 mg Q4H PRN IVP Severe Pain (Pain Scale 7-10) 04/17/18 15:00 04/22/18 14:59 04/19/18 11:10 Insulin Aspart (NovoLOG) BEFORE MEALS AND HS SUBQ 04/18/18 21:00 05/18/18 20:59 04/18/18 21:28 Iron Sucrose 100 mg/Sodium Chloride 60 ml @ 240 mls/hr BEDTIME IV 04/17/18 21:00 04/21/18 21:14 04/18/18 20:42 Lidocaine (Lidoderm 5% PATCH) 1 patch DAILY TDERMAL 04/15/18 14:30 05/15/18 14:29 04/19/18 09:28 Methadone HCl (Methadone HCl) 100 mg DAILY ORAL 04/16/18 09:00 04/23/18 08:59 04/19/18 09:43 Metoclopramide HCl (Reglan) 10 mg Q6H PRN IVP Nausea and Vomiting 04/15/18 17:30 05/15/18 17:29 Naloxone HCl (Narcan) 0.2 mg Q4H PRN IVP RESPRITORY DISTRESS 04/15/18 15:15 05/15/18 15:14 Polyethylene Glycol (Miralax) 17 gm HSPRN PRN ORAL Constipation 04/15/18 21:00 05/15/18 20:59 Sodium Chloride 1,000 ml @ 50 mls/hr Q20H IV 04/16/18 12:30 05/16/18 12:29 04/19/18 00:01 Zolpidem Tartrate (Ambien) 5 mg HSPRN PRN ORAL Insomnia 04/15/18 21:00 04/22/18 20:59 Rufina Venegas MD Apr 19, 2018 14:42
--- NOTE | 2018-04-19 15:45 | General Progress Note ---
Assessment/Plan Problem List: (1) Femur fracture, right ICD Codes: S72.91XA - Unspecified fracture of right femur, initial encounter for closed fracture SNOMED: 17738361 Qualifiers: Qualified Codes: S72.141A - Displaced intertrochanteric fracture of right femur, initial encounter for closed fracture (2) Anemia ICD Codes: D64.9 - Anemia, unspecified SNOMED: 531975567 Qualifiers: Qualified Codes: D64.9 - Anemia, unspecified (3) CKD (chronic kidney disease) ICD Codes: N18.9 - Chronic kidney disease, unspecified SNOMED: 164226652 Qualifiers: Qualified Codes: N18.9 - Chronic kidney disease, unspecified (4) Intertrochanteric fracture of right femur ICD Codes: S72.141A - Displaced intertrochanteric fracture of right femur, initial encounter for closed fracture SNOMED: 369952969 Qualifiers: Qualified Codes: S72.141A - Displaced intertrochanteric fracture of right femur, initial encounter for closed fracture Status: stable, progressing Assessment/Plan ot pt diet pain control cbc bmp am brotman id eval aru eval Subjective Constitutional: Reports: weakness Allergies: Coded Allergies: PENICILLINS (Unverified Allergy, Unknown, 04/14/18) All Systems: reviewed and negative except above Subjective o2nc sleepy calm Objective Last 24 Hour Vital Signs Date Time Temp Pulse Resp B/P (MAP) Pulse Ox O2 Delivery O2 Flow Rate FiO2 04/19/18 12:00 98.1 88 19 128/96 (107) 98 98.1 04/19/18 11:40 98.1 04/19/18 11:10 97.5 04/19/18 09:30 Room Air 04/19/18 08:00 97.5 87 20 130/88 (102) 97 97.5 04/19/18 04:00 98.1 95 19 144/93 (110) 100 98.1 04/19/18 00:00 97.7 98 20 156/84 (108) 98 97.7 04/18/18 21:00 Room Air 04/18/18 20:00 97.9 64 21 156/96 (116) 99 97.9 04/18/18 15:52 97.9 89 20 153/99 (117) 98 97.9 Intake and Output 04/18/18 04/19/18 19:00 07:00 Intake Total 830 ml 889 ml Output Total 1450 ml Balance 830 ml -561 ml Intake Oral 480 ml 480 ml IV Total 350 ml 409 ml Output Urine Total 1450 ml # Voids 2 Laboratory Tests 04/19/18 04:50: White Blood Count 12.2H, Red Blood Count 4.23, Hemoglobin 8.8L, Hematocrit 29.7L , Mean Corpuscular Volume 70L, Mean Corpuscular Hemoglobin 20.9L, Mean Corpuscular Hemoglobin Concent 29.7L, Red Cell Distribution Width 18.1H, Platelet Count 283, Mean Platelet Volume 6.7, Neutrophils (%) (Auto) 80.3H, Lymphocytes (%) (Auto) 12.6L, Monocytes (%) (Auto) 6.1, Eosinophils (%) (Auto) 0.2, Basophils (%) (Auto) 0.8, Sodium Level 138, Potassium Level 4.4, Chloride Level 105, Carbon Dioxide Level 22, Anion Gap 11, Blood Urea Nitrogen 37H, Creatinine 1.4H, Estimat Glomerular Filtration Rate 45.8, Glucose Level 110H, Calcium Level 9.1, Phosphorus Level 2.5, Magnesium Level 1.9, Total Bilirubin 0.2, Aspartate Amino Transf (AST/SGOT) 36, Alanine Aminotransferase (ALT/SGPT) 24, Alkaline Phosphatase 74, C-Reactive Protein, Quantitative 0.6, Pro-B-Type Natriuretic Peptide 867H, Total Protein 7.8, Albumin 2.7L, Globulin 5.1, Albumin /Globulin Ratio 0.5L, HIV (1&2) Antibody Rapid Negative Height (Feet): 5 Height (Inches): 5.00 Weight (Pounds): 109 General Appearance: lethargic EENT: normal ENT inspection Neck: normal alignment Cardiovascular: normal peripheral pulses, normal rate, regular rhythm Respiratory/Chest: chest wall non-tender, lungs clear, normal breath sounds Abdomen: normal bowel sounds, non tender, soft Extremities: normal inspection Edema: no edema noted Arm (L), no edema noted Arm (R), no edema noted Leg (L), no edema noted Leg (R), no edema noted Pedal (L), no edema noted Pedal (R), no edema noted Generalized Neurologic: responsive, motor weakness Skin: normal pigmentation, warm/dry JeromeJuanitog DO Apr 19, 2018 15:45
[2018-04-19 16:00] VITALS: BP 152/103
--- NOTE | 2018-04-19 18:29 | Infectious Diseases Prog Note ---
Assessment/Plan Assessment/Plan Abx: Ancef 04/15-04/16 Assessment: Leukocytosis, improving- suspect likely reactive to recent surgery -afebrile -u/a neg; ucx NTD -04/18 CXR: Development of trace right pleural effusion and right bibasilar opacities, likely atelectasis. Correlate clinically. Unchanged linear atelectasis or scarring in the left base. Fall w/ resultan R hip fracture -s/p ORIF 04/15 - CT chest: Compression fracture deformity of the T3, T7, and T8 vertebral bodies. Acuity indeterminate. Consider MRI for better characterization is clinically relevant. No other acute bony trauma. Bilateral basilar pulmonary parenchymal scarring and atelectasis, and nonspecific mild interstitial septal irregularity. 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 Chronic vertebral compression fractures -MRI T spine: T3, T7, T8 vertebral body compression fracture deformities. Lack of marrow signal changes indicating that these are chronic. Otherwise unremarkable exam Thyroid nodules Thyroid US: Heterogeneous thyroid with bilateral nodules, majority of which are subcentimeter. Nodule in the inferior left lobe of the thyroid with moderately suspicious pattern but size under 1.5 cm. Recommend follow-up ultrasound within 6 months to assess for stability. If there is interval change this may need FNA. HTN seizure disorder CKD anemia prior heroin abuse now on methadone Plan: -Continue to monitor off abx -f/u cx -Monitor CBC/CMP, temperatures; Trend WBC -aspiration precautions -Cdiff if diarrhea Thank you for this consultation. Will continue to follow along with you. Discussed with RN. Subjective Allergies: Coded Allergies: PENICILLINS (Unverified Allergy, Unknown, 04/14/18) Subjective afebrile leukocytosis improvnng off abx Objective Vital Signs Last 24 Hour Vital Signs Date Time Temp Pulse Resp B/P (MAP) Pulse Ox O2 Delivery O2 Flow Rate FiO2 04/19/18 16:37 98.1 04/19/18 16:07 98.1 04/19/18 16:00 97.9 101 20 152/103 (119) 97 97.9 04/19/18 12:00 98.1 88 19 128/96 (107) 98 98.1 04/19/18 11:10 97.5 04/19/18 09:30 Room Air 04/19/18 08:00 97.5 87 20 130/88 (102) 97 97.5 04/19/18 04:00 98.1 95 19 144/93 (110) 100 98.1 04/19/18 00:00 97.7 98 20 156/84 (108) 98 97.7 04/18/18 21:00 Room Air 04/18/18 20:00 97.9 64 21 156/96 (116) 99 97.9 Height (Feet): 5 Height (Inches): 5.00 Weight (Pounds): 109 Objective CARDIOVASCULAR: No murmur. LUNGS: Distant and clear. ABDOMEN: Bowel sound positive. Nontender. Nondistended. EXTREMITIES: No cyanosis, clubbing or edema. NEUROLOGIC: The patient is slightly weak, but moves all extremities. Laboratory Tests Test 04/19/18 04:50 White Blood Count 12.2 K/UL (4.8-10.8) H Red Blood Count 4.23 M/UL (4.20-5.40) Hemoglobin 8.8 G/DL (12.0-16.0) L Hematocrit 29.7 % (37.0-47.0) L Mean Corpuscular Volume 70 FL (80-99) L Mean Corpuscular Hemoglobin 20.9 PG (27.0-31.0) L Mean Corpuscular Hemoglobin Concent 29.7 G/DL (32.0-36.0) L Red Cell Distribution Width 18.1 % (11.6-14.8) H Platelet Count 283 K/UL (150-450) Mean Platelet Volume 6.7 FL (6.5-10.1) Neutrophils (%) (Auto) 80.3 % (45.0-75.0) H Lymphocytes (%) (Auto) 12.6 % (20.0-45.0) L Monocytes (%) (Auto) 6.1 % (1.0-10.0) Eosinophils (%) (Auto) 0.2 % (0.0-3.0) Basophils (%) (Auto) 0.8 % (0.0-2.0) Sodium Level 138 MMOL/L (136-145) Potassium Level 4.4 MMOL/L (3.5-5.1) Chloride Level 105 MMOL/L (98-107) Carbon Dioxide Level 22 MMOL/L (21-32) Anion Gap 11 mmol/L (5-15) Blood Urea Nitrogen 37 mg/dL (7-18) H Creatinine 1.4 MG/DL (0.55-1.30) H Estimat Glomerular Filtration Rate 45.8 mL/min (>60) Glucose Level 110 MG/DL (74-106) H Calcium Level 9.1 MG/DL (8.5-10.1) Phosphorus Level 2.5 MG/DL (2.5-4.9) Magnesium Level 1.9 MG/DL (1.8-2.4) Total Bilirubin 0.2 MG/DL (0.2-1.0) Aspartate Amino Transf (AST/SGOT) 36 U/L (15-37) Alanine Aminotransferase (ALT/SGPT) 24 U/L (12-78) Alkaline Phosphatase 74 U/L (46-116) C-Reactive Protein, Quantitative 0.6 mg/dL (0.00-0.90) Pro-B-Type Natriuretic Peptide 867 pg/mL (0-125) H Total Protein 7.8 G/DL (6.4-8.2) Albumin 2.7 G/DL (3.4-5.0) L Globulin 5.1 g/dL Albumin/Globulin Ratio 0.5 (1.0-2.7) L HIV (1&2) Antibody Rapid Negative (NEGATIVE) Current Medications Medications (Trade) Dose Ordered Sig/Deysi Route PRN Reason Start Time Stop Time Status Last Admin Dose Admin Acetaminophen (Tylenol) 650 mg Q4H PRN ORAL fever 04/15/18 08:00 05/15/18 07:59 Acetaminophen/ Hydrocodone Bitart ([place] 10/325) 1 tab Q6H PRN ORAL moderate pain 04/17/18 14:45 04/24/18 14:44 04/19/18 00:57 Dextrose (Dextrose 50%) 25 ml STAT PRN IV Hypoglycemia 04/18/18 19:30 05/18/18 19:29 Dextrose (Dextrose 50%) 50 ml STAT PRN IV Hypoglycemia 04/18/18 19:30 05/18/18 19:29 Docusate Sodium (Colace) 100 mg THREE TIMES A DAY ORAL 04/15/18 18:00 05/15/18 17:59 04/19/18 16:53 Famotidine (Pepcid) 20 mg BID ORAL 04/17/18 12:30 05/17/18 12:29 04/19/18 16:53 Heparin Sodium (Porcine) (Heparin 5000 units/ml) 5,000 units EVERY 12 HOURS SUBQ 04/15/18 09:00 05/15/18 08:59 04/19/18 09:28 Hydromorphone HCl (Dilaudid) 1 mg Q4H PRN IVP Severe Pain (Pain Scale 7-10) 04/17/18 15:00 04/22/18 14:59 04/19/18 16:07 Insulin Aspart (NovoLOG) BEFORE MEALS AND HS SUBQ 04/18/18 21:00 05/18/18 20:59 04/19/18 16:18 Iron Sucrose 100 mg/Sodium Chloride 60 ml @ 240 mls/hr BEDTIME IV 04/17/18 21:00 04/21/18 21:14 04/18/18 20:42 Lidocaine (Lidoderm 5% PATCH) 1 patch DAILY TDERMAL 04/15/18 14:30 05/15/18 14:29 04/19/18 09:28 Methadone HCl (Methadone HCl) 100 mg DAILY ORAL 04/16/18 09:00 04/23/18 08:59 04/19/18 09:43 Metoclopramide HCl (Reglan) 10 mg Q6H PRN IVP Nausea and Vomiting 04/15/18 17:30 05/15/18 17:29 Naloxone HCl (Narcan) 0.2 mg Q4H PRN IVP RESPRITORY DISTRESS 04/15/18 15:15 05/15/18 15:14 Polyethylene Glycol (Miralax) 17 gm HSPRN PRN ORAL Constipation 04/15/18 21:00 05/15/18 20:59 Sodium Chloride 1,000 ml @ 50 mls/hr Q20H IV 04/16/18 12:30 05/16/18 12:29 04/19/18 00:01 Zolpidem Tartrate (Ambien) 5 mg HSPRN PRN ORAL Insomnia 04/15/18 21:00 04/22/18 20:59 Mercedes Cramer M.D. Apr 19, 2018 18:29
[2018-04-19 20:00] VITALS: BP 155/98
[2018-04-19] MEDS: Iron Sucrose 100 MG in NS 55 ML IV SCH (21:21)
[2018-04-20] VITALS (7 sets, daily range): BP systolic 127–177; BP diastolic 71–105
[2018-04-20] MEDS: NovoLOG Insulin Flexpen SUBQ SCH ×4 (06:22→20:24)
[2018-04-20 06:44] LABS: BASOPHILS % (AUTO) 1.5 % (0.0-2.0); EOSINOPHILS % (AUTO) 0.6 % (0.0-3.0); HEMOGLOBIN 8.8 G/DL (12.0-16.0); LYMPHOCYTES % (AUTO) 14.6 % (20.0-45.0); MEAN CORPUSCULAR VOLUME 71 FL (80-99); MONOCYTES % (AUTO) 5.7 % (1.0-10.0); NEUTROPHILS % (AUTO) 77.8 % (45.0-75.0); PLATELET COUNT 257 K/UL (150-450); RED CELL DISTRIBUTION WIDTH 18.4 % (11.6-14.8)
--- NOTE | 2018-04-20 06:52 | General Progress Note ---
Assessment/Plan Problem List: (1) Diabetes ICD Codes: E11.9 - Type 2 diabetes mellitus without complications SNOMED: 57907491 (2) Hip fracture, right ICD Codes: S72.001A - Fracture of unspecified part of neck of right femur, initial encounter for closed fracture SNOMED: 130738199 (3) CKD (chronic kidney disease) ICD Codes: N18.9 - Chronic kidney disease, unspecified SNOMED: 619398500 Qualifiers: Qualified Codes: N18.9 - Chronic kidney disease, unspecified (4) Hypertension ICD Codes: I10 - Essential (primary) hypertension SNOMED: 29087796 Assessment/Plan continue blood glucose monitoring and NISS ac / hs Subjective Allergies: Coded Allergies: PENICILLINS (Unverified Allergy, Unknown, 04/14/18) All Systems: reviewed and negative except above Subjective events noted Objective Last 24 Hour Vital Signs Date Time Temp Pulse Resp B/P (MAP) Pulse Ox O2 Delivery O2 Flow Rate FiO2 04/20/18 04:00 98.0 74 20 127/71 (89) 96 98.0 04/20/18 00:00 98.4 91 18 145/86 (105) 98 98.4 04/19/18 21:00 Room Air 04/19/18 20:00 98.4 87 18 155/98 (117) 97 98.4 04/19/18 16:37 98.1 04/19/18 16:07 98.1 04/19/18 16:00 97.9 101 20 152/103 (119) 97 97.9 04/19/18 12:00 98.1 88 19 128/96 (107) 98 98.1 04/19/18 11:10 97.5 04/19/18 09:30 Room Air 04/19/18 08:00 97.5 87 20 130/88 (102) 97 97.5 Intake and Output 04/19/18 04/20/18 19:00 07:00 Intake Total 650 ml Output Total 300 ml 1000 ml Balance 350 ml -1000 ml Intake Oral 300 ml IV Total 350 ml Output Urine Total 300 ml 1000 ml Laboratory Tests 04/20/18 06:10: White Blood Count [Pending], Red Blood Count [Pending], Hemoglobin [Pending], Hematocrit [Pending], Mean Corpuscular Volume [Pending], Mean Corpuscular Hemoglobin [Pending], Mean Corpuscular Hemoglobin Concent [Pending], Red Cell Distribution Width [Pending], Platelet Count [Pending], Mean Platelet Volume [ Pending], Neutrophils (%) (Auto) [Pending], Lymphocytes (%) (Auto) [Pending], Monocytes (%) (Auto) [Pending], Eosinophils (%) (Auto) [Pending], Basophils (%) (Auto) [Pending], Sodium Level [Pending], Potassium Level [Pending], Chloride Level [Pending], Carbon Dioxide Level [Pending], Blood Urea Nitrogen [Pending], Creatinine [Pending], Estimat Glomerular Filtration Rate [Pending], Glucose Level [Pending], Calcium Level [Pending] Height (Feet): 5 Height (Inches): 5.00 Weight (Pounds): 116 General Appearance: no apparent distress Neck: normal alignment Cardiovascular: normal rate Respiratory/Chest: lungs clear Abdomen: normal bowel sounds Objective Current Medications Medications (Trade) Dose Ordered Sig/Deysi Route PRN Reason Start Time Stop Time Status Last Admin Dose Admin Acetaminophen (Tylenol) 650 mg Q4H PRN ORAL fever 04/15/18 08:00 05/15/18 07:59 Acetaminophen/ Hydrocodone Bitart ([place] 10/325) 1 tab Q6H PRN ORAL moderate pain 04/17/18 14:45 04/24/18 14:44 04/19/18 00:57 Dextrose (Dextrose 50%) 25 ml STAT PRN IV Hypoglycemia 04/18/18 19:30 05/18/18 19:29 Dextrose (Dextrose 50%) 50 ml STAT PRN IV Hypoglycemia 04/18/18 19:30 05/18/18 19:29 Docusate Sodium (Colace) 100 mg THREE TIMES A DAY ORAL 04/15/18 18:00 05/15/18 17:59 04/19/18 16:53 Famotidine (Pepcid) 20 mg BID ORAL 04/17/18 12:30 05/17/18 12:29 04/19/18 16:53 Heparin Sodium (Porcine) (Heparin 5000 units/ml) 5,000 units EVERY 12 HOURS SUBQ 04/15/18 09:00 05/15/18 08:59 04/19/18 21:17 Hydromorphone HCl (Dilaudid) 1 mg Q4H PRN IVP Severe Pain (Pain Scale 7-10) 04/17/18 15:00 04/22/18 14:59 04/20/18 05:50 Insulin Aspart (NovoLOG) BEFORE MEALS AND HS SUBQ 04/18/18 21:00 05/18/18 20:59 04/19/18 16:18 Iron Sucrose 100 mg/Sodium Chloride 60 ml @ 240 mls/hr BEDTIME IV 04/17/18 21:00 04/21/18 21:14 04/19/18 21:21 Lidocaine (Lidoderm 5% PATCH) 1 patch DAILY TDERMAL 04/15/18 14:30 05/15/18 14:29 04/19/18 09:28 Methadone HCl (Methadone HCl) 100 mg DAILY ORAL 04/16/18 09:00 04/23/18 08:59 04/19/18 09:43 Metoclopramide HCl (Reglan) 10 mg Q6H PRN IVP Nausea and Vomiting 04/15/18 17:30 05/15/18 17:29 Naloxone HCl (Narcan) 0.2 mg Q4H PRN IVP RESPRITORY DISTRESS 04/15/18 15:15 05/15/18 15:14 Polyethylene Glycol (Miralax) 17 gm HSPRN PRN ORAL Constipation 04/15/18 21:00 05/15/18 20:59 04/20/18 05:51 Sodium Chloride 1,000 ml @ 50 mls/hr Q20H IV 04/16/18 12:30 05/16/18 12:29 04/19/18 21:10 Zolpidem Tartrate (Ambien) 5 mg HSPRN PRN ORAL Insomnia 04/15/18 21:00 04/22/18 20:59 Item Value Date Time Bedside Blood Glucose 107 mg/dl 04/20/18 06 Bedside Blood Glucose 101 mg/dl 04/19/18 2118 Bedside Blood Glucose 121 mg/dl H 04/19/18 1618 Bedside Blood Glucose 102 mg/dl 04/19/18 1110 Bedside Blood Glucose 107 mg/dl 04/19/18 0630 Kleber Nicholas MD Apr 20, 2018 06:52
[2018-04-20 06:55] LABS: ANION GAP 10 mmol/L (5-15); BLOOD UREA NITROGEN 36 mg/dL (7-18); CALCIUM 8.9 MG/DL (8.5-10.1); CARBON DIOXIDE 23 MMOL/L (21-32); CHLORIDE 106 MMOL/L (98-107); CREATININE 1.5 MG/DL (0.55-1.30); POTASSIUM 4.4 MMOL/L (3.5-5.1); SODIUM 139 MMOL/L (136-145)
--- NOTE | 2018-04-20 08:01 | General Progress Note ---
Assessment/Plan Assessment/Plan (1) Right hip fracture s/p ORIF (2) Right hip pain s/p fall (3) Thoracic compression fracture (4) H/o heroin abuse on methadone maintenance Pt will be continued on methadone, Dilaudid and [place]. D/w Dr. Drummond and he concurred. Subjective Date patient seen: Apr 20, 2018 Time patient seen: 07:15 - am Allergies: Coded Allergies: PENICILLINS (Unverified Allergy, Unknown, 04/14/18) Subjective REVIEW OF SYSTEMS: Denies rash, fever, chills, sweating, dizziness, drowsiness, blurred vision, sore throat, or change in weight. No shortness of breath or chest pain. No nausea, vomiting, diarrhea, or blood in the stool or urine. No bowel or bladder incontinence. No dysuria. She is complaining of right hip pain. SUBJECTIVE: Patient is no new complaints, pain is stable on the Dilaudid and [place] as needed, Getting the Methadone daily. Objective Last 24 Hour Vital Signs Date Time Temp Pulse Resp B/P (MAP) Pulse Ox O2 Delivery O2 Flow Rate FiO2 04/20/18 04:00 98.0 74 20 127/71 (89) 96 98.0 04/20/18 00:00 98.4 91 18 145/86 (105) 98 98.4 04/19/18 21:00 Room Air 04/19/18 20:00 98.4 87 18 155/98 (117) 97 98.4 04/19/18 16:37 98.1 04/19/18 16:07 98.1 04/19/18 16:00 97.9 101 20 152/103 (119) 97 97.9 04/19/18 12:00 98.1 88 19 128/96 (107) 98 98.1 04/19/18 11:10 97.5 04/19/18 09:30 Room Air Intake and Output 04/19/18 04/20/18 19:00 07:00 Intake Total 700 ml 660 ml Output Total 300 ml 1000 ml Balance 400 ml -340 ml Intake Oral 300 ml IV Total 400 ml 660 ml Output Urine Total 300 ml 1000 ml Laboratory Tests 04/20/18 06:10: White Blood Count 10.0, Red Blood Count 4.10L, Hemoglobin 8.8L, Hematocrit 29.0L , Mean Corpuscular Volume 71L, Mean Corpuscular Hemoglobin 21.3L, Mean Corpuscular Hemoglobin Concent 30.2L, Red Cell Distribution Width 18.4H, Platelet Count 257, Mean Platelet Volume 6.9, Neutrophils (%) (Auto) 77.8H, Lymphocytes (%) (Auto) 14.6L, Monocytes (%) (Auto) 5.7, Eosinophils (%) (Auto) 0.6, Basophils (%) (Auto) 1.5, Sodium Level 139, Potassium Level 4.4, Chloride Level 106, Carbon Dioxide Level 23, Anion Gap 10, Blood Urea Nitrogen 36H, Creatinine 1.5H, Estimat Glomerular Filtration Rate 42.3, Glucose Level 111H, Calcium Level 8.9 Height (Feet): 5 Height (Inches): 5.00 Weight (Pounds): 116 Objective GENERAL: Alert, awake, and oriented x3. LUNGS: Decreased breath sounds bilaterally. HEART: S1S2 Regular. ABDOMEN: Benign. EXTREMITIES: Lower extremity range of motion is decreased. The patient has tenderness to palpation to the right hip, bandages applied No cyanosis. No clubbing. No edema. NEURO: No changes. Procedure: MRI T Spine no Contrast Indication: Chronic arm and back pain Technique: Sagittal T1 fast spin echo, sagittal T2 fast echo, sagittal STIR, axial T2 fast spin echo images were obtained through the thoracic spine Comparison: Findings: Bony alignment is normal. There is loss of height anteriorly of the T3 vertebral body. There is very subtle slight anterior loss of height of the T7 and T8 vertebral bodies. These all demonstrate normal marrow signal, however. There is no evidence posterior retropulsion. Vertebral body marrow signal is overall normal. There is slight smooth kyphotic deformity. Intrinsic cord signal is normal. No significant disc bulge or protrusion, spinal stenosis, or neural foraminal narrowing noted. The included extraspinal soft tissues are unremarkable Impression: T3, T7, T8 vertebral body compression fracture deformities. Lack of marrow signal changes indicating that these are chronic. Otherwise unremarkable exam Jhony Whittaker Apr 20, 2018 08:01
[2018-04-20] MEDS: Heparin 5000 units/ml inj SUBQ SCH ×2 (08:29→20:23)
[2018-04-20] MEDS: Docusate 100mg cap ORAL SCH ×3 (08:29→17:20)
--- NOTE | 2018-04-20 10:44 | Nephrology Progress Note ---
Assessment/Plan Problem List: (1) Femur fracture, right Assessment: surgery 04/15 (2) CKD (chronic kidney disease) (3) Anemia Assessment: low MCV (4) Lytic lesion of bone on x-ray (5) Compression fracture (6) Hypertension (7) Hypoalbuminemia Assessment stable- Cr lower to 1.5 Hgb higher Plan aggressive breathin treatment IV Iron- Uriine culture negative avoid nephrotoxics Post op care monitor renal parameters BP control check urine culture check Thyroid panel DC planning when WBCs wnl check cxr Right kidney: Right kidney measures 9.2 x 3.6 x 5.3 cm.. no stones. No hydronephrosis. Left kidney: Somewhat limited evaluation due to body habitus and bowel gas. Kidney measures 8.6 x 4.5 x 5.0 cm. Mild dilatation of left renal ureter measuring 9 mm. No stones or masses. Bladder: Bilateral ureteral jets are seen. Urinary bladder volume 229. IMPRESSION: Mild dilatation of left renal ureter measuring 9 mm. Subjective ROS Limited/Unobtainable: No Constitutional: Reports: malaise Objective Objective Last 24 Hour Vital Signs Date Time Temp Pulse Resp B/P (MAP) Pulse Ox O2 Delivery O2 Flow Rate FiO2 04/20/18 09:31 Room Air 04/20/18 04:00 98.0 74 20 127/71 (89) 96 98.0 04/20/18 00:00 98.4 91 18 145/86 (105) 98 98.4 04/19/18 21:00 Room Air 04/19/18 20:00 98.4 87 18 155/98 (117) 97 98.4 04/19/18 16:37 98.1 04/19/18 16:07 98.1 04/19/18 16:00 97.9 101 20 152/103 (119) 97 97.9 04/19/18 12:00 98.1 88 19 128/96 (107) 98 98.1 04/19/18 11:10 97.5 Intake and Output 04/19/18 04/20/18 19:00 07:00 Intake Total 700 ml 660 ml Output Total 300 ml 1000 ml Balance 400 ml -340 ml Intake Oral 300 ml IV Total 400 ml 660 ml Output Urine Total 300 ml 1000 ml Laboratory Tests 04/20/18 06:10: White Blood Count 10.0, Red Blood Count 4.10L, Hemoglobin 8.8L, Hematocrit 29.0L , Mean Corpuscular Volume 71L, Mean Corpuscular Hemoglobin 21.3L, Mean Corpuscular Hemoglobin Concent 30.2L, Red Cell Distribution Width 18.4H, Platelet Count 257, Mean Platelet Volume 6.9, Neutrophils (%) (Auto) 77.8H, Lymphocytes (%) (Auto) 14.6L, Monocytes (%) (Auto) 5.7, Eosinophils (%) (Auto) 0.6, Basophils (%) (Auto) 1.5, Sodium Level 139, Potassium Level 4.4, Chloride Level 106, Carbon Dioxide Level 23, Anion Gap 10, Blood Urea Nitrogen 36H, Creatinine 1.5H, Estimat Glomerular Filtration Rate 42.3, Glucose Level 111H, Calcium Level 8.9 Height (Feet): 5 Height (Inches): 5.00 Weight (Pounds): 116 General Appearance: no apparent distress Objective no change Pasquale Ross MD Apr 20, 2018 10:44
[2018-04-20] MEDS ORDERED: Isovue-300 100ml vial INJ PRN (14:00)
--- NOTE | 2018-04-20 14:05 | Pulmonology Progress Note ---
Assessment/Plan Problems: (1) Lytic lesion of bone on x-ray (2) Elevated CEA (3) Intertrochanteric fracture of right femur (4) Hip fracture, right (5) Compression fracture (6) Anemia (7) Diabetes (8) Hypertension (9) Hypoalbuminemia (10) Protein-calorie malnutrition, severe Assessment/Plan stool for OB pending Hem and GI evaluation CT of abdomen and pelvis ordered all reviewed symptomatic treatment check electrolytes dc planning Subjective ROS Limited/Unobtainable: No HEENT: Repors: no symptoms Respiratory: Reports: no symptoms Allergies: Coded Allergies: PENICILLINS (Unverified Allergy, Unknown, 04/14/18) Objective Last 24 Hour Vital Signs Date Time Temp Pulse Resp B/P (MAP) Pulse Ox O2 Delivery O2 Flow Rate FiO2 04/20/18 13:04 98.0 04/20/18 12:34 98.0 04/20/18 09:31 Room Air 04/20/18 04:00 98.0 74 20 127/71 (89) 96 98.0 04/20/18 00:00 98.4 91 18 145/86 (105) 98 98.4 04/19/18 21:00 Room Air 04/19/18 20:00 98.4 87 18 155/98 (117) 97 98.4 04/19/18 16:07 98.1 04/19/18 16:00 97.9 101 20 152/103 (119) 97 97.9 Intake and Output 04/19/18 04/20/18 19:00 07:00 Intake Total 700 ml 660 ml Output Total 300 ml 1000 ml Balance 400 ml -340 ml Intake Oral 300 ml IV Total 400 ml 660 ml Output Urine Total 300 ml 1000 ml General Appearance: cachetic HEENT: normocephalic Respiratory/Chest: chest wall non-tender, lungs clear Cardiovascular: normal peripheral pulses, normal rate Abdomen: normal bowel sounds, non distended Extremities: no cyanosis, no clubbing 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 Laboratory Tests 04/20/18 06:10: White Blood Count 10.0, Red Blood Count 4.10L, Hemoglobin 8.8L, Hematocrit 29.0L , Mean Corpuscular Volume 71L, Mean Corpuscular Hemoglobin 21.3L, Mean Corpuscular Hemoglobin Concent 30.2L, Red Cell Distribution Width 18.4H, Platelet Count 257, Mean Platelet Volume 6.9, Neutrophils (%) (Auto) 77.8H, Lymphocytes (%) (Auto) 14.6L, Monocytes (%) (Auto) 5.7, Eosinophils (%) (Auto) 0.6, Basophils (%) (Auto) 1.5, Sodium Level 139, Potassium Level 4.4, Chloride Level 106, Carbon Dioxide Level 23, Anion Gap 10, Blood Urea Nitrogen 36H, Creatinine 1.5H, Estimat Glomerular Filtration Rate 42.3, Glucose Level 111H, Calcium Level 8.9 Current Medications Medications (Trade) Dose Ordered Sig/Deysi Route PRN Reason Start Time Stop Time Status Last Admin Dose Admin Acetaminophen (Tylenol) 650 mg Q4H PRN ORAL fever 04/15/18 08:00 05/15/18 07:59 Acetaminophen/ Hydrocodone Bitart ([place] 10/325) 1 tab Q6H PRN ORAL moderate pain 04/17/18 14:45 04/24/18 14:44 04/19/18 00:57 Dextrose (Dextrose 50%) 25 ml STAT PRN IV Hypoglycemia 04/18/18 19:30 05/18/18 19:29 Dextrose (Dextrose 50%) 50 ml STAT PRN IV Hypoglycemia 04/18/18 19:30 05/18/18 19:29 Docusate Sodium (Colace) 100 mg THREE TIMES A DAY ORAL 04/15/18 18:00 05/15/18 17:59 04/19/18 16:53 Famotidine (Pepcid) 20 mg BID ORAL 04/17/18 12:30 05/17/18 12:29 04/20/18 08:28 Heparin Sodium (Porcine) (Heparin 5000 units/ml) 5,000 units EVERY 12 HOURS SUBQ 04/15/18 09:00 05/15/18 08:59 04/20/18 08:29 Hydromorphone HCl (Dilaudid) 1 mg Q4H PRN IVP Severe Pain (Pain Scale 7-10) 04/17/18 15:00 04/22/18 14:59 04/20/18 12:34 Insulin Aspart (NovoLOG) BEFORE MEALS AND HS SUBQ 04/18/18 21:00 05/18/18 20:59 04/19/18 16:18 Iron Sucrose 100 mg/Sodium Chloride 60 ml @ 240 mls/hr BEDTIME IV 04/17/18 21:00 04/21/18 21:14 04/19/18 21:21 Lidocaine (Lidoderm 5% PATCH) 1 patch DAILY TDERMAL 04/15/18 14:30 05/15/18 14:29 04/20/18 08:28 Methadone HCl (Methadone HCl) 100 mg DAILY ORAL 04/16/18 09:00 04/23/18 08:59 04/20/18 08:28 Metoclopramide HCl (Reglan) 10 mg Q6H PRN IVP Nausea and Vomiting 04/15/18 17:30 05/15/18 17:29 Naloxone HCl (Narcan) 0.2 mg Q4H PRN IVP RESPRITORY DISTRESS 04/15/18 15:15 05/15/18 15:14 Polyethylene Glycol (Miralax) 17 gm HSPRN PRN ORAL Constipation 04/15/18 21:00 05/15/18 20:59 04/20/18 05:51 Sodium Chloride 1,000 ml @ 50 mls/hr Q20H IV 04/16/18 12:30 05/16/18 12:29 04/19/18 21:10 Zolpidem Tartrate (Ambien) 5 mg HSPRN PRN ORAL Insomnia 04/15/18 21:00 04/22/18 20:59 Rufina Venegas MD Apr 20, 2018 14:05
--- NOTE | 2018-04-20 14:18 | General Progress Note ---
Assessment/Plan Problem List: (1) Femur fracture, right ICD Codes: S72.91XA - Unspecified fracture of right femur, initial encounter for closed fracture SNOMED: 04670063 Qualifiers: Qualified Codes: S72.141A - Displaced intertrochanteric fracture of right femur, initial encounter for closed fracture (2) Anemia ICD Codes: D64.9 - Anemia, unspecified SNOMED: 100121501 Qualifiers: Qualified Codes: D64.9 - Anemia, unspecified (3) CKD (chronic kidney disease) ICD Codes: N18.9 - Chronic kidney disease, unspecified SNOMED: 608543753 Qualifiers: Qualified Codes: N18.9 - Chronic kidney disease, unspecified (4) Intertrochanteric fracture of right femur ICD Codes: S72.141A - Displaced intertrochanteric fracture of right femur, initial encounter for closed fracture SNOMED: 227926973 Qualifiers: Qualified Codes: S72.141A - Displaced intertrochanteric fracture of right femur, initial encounter for closed fracture Status: stable, progressing Assessment/Plan ot pt diet pain control dc to snf if clear Subjective Constitutional: Reports: weakness Allergies: Coded Allergies: PENICILLINS (Unverified Allergy, Unknown, 04/14/18) All Systems: reviewed and negative except above Subjective sleepy calm Objective Last 24 Hour Vital Signs Date Time Temp Pulse Resp B/P (MAP) Pulse Ox O2 Delivery O2 Flow Rate FiO2 04/20/18 13:04 98.0 04/20/18 12:34 98.0 04/20/18 09:31 Room Air 04/20/18 04:00 98.0 74 20 127/71 (89) 96 98.0 04/20/18 00:00 98.4 91 18 145/86 (105) 98 98.4 04/19/18 21:00 Room Air 04/19/18 20:00 98.4 87 18 155/98 (117) 97 98.4 04/19/18 16:07 98.1 04/19/18 16:00 97.9 101 20 152/103 (119) 97 97.9 Intake and Output 04/19/18 04/20/18 19:00 07:00 Intake Total 700 ml 660 ml Output Total 300 ml 1000 ml Balance 400 ml -340 ml Intake Oral 300 ml IV Total 400 ml 660 ml Output Urine Total 300 ml 1000 ml Laboratory Tests 04/20/18 06:10: White Blood Count 10.0, Red Blood Count 4.10L, Hemoglobin 8.8L, Hematocrit 29.0L , Mean Corpuscular Volume 71L, Mean Corpuscular Hemoglobin 21.3L, Mean Corpuscular Hemoglobin Concent 30.2L, Red Cell Distribution Width 18.4H, Platelet Count 257, Mean Platelet Volume 6.9, Neutrophils (%) (Auto) 77.8H, Lymphocytes (%) (Auto) 14.6L, Monocytes (%) (Auto) 5.7, Eosinophils (%) (Auto) 0.6, Basophils (%) (Auto) 1.5, Sodium Level 139, Potassium Level 4.4, Chloride Level 106, Carbon Dioxide Level 23, Anion Gap 10, Blood Urea Nitrogen 36H, Creatinine 1.5H, Estimat Glomerular Filtration Rate 42.3, Glucose Level 111H, Calcium Level 8.9 Height (Feet): 5 Height (Inches): 5.00 Weight (Pounds): 116 General Appearance: lethargic EENT: PERRL/EOMI Neck: normal alignment Cardiovascular: normal peripheral pulses, normal rate, regular rhythm Respiratory/Chest: chest wall non-tender, lungs clear, normal breath sounds Abdomen: normal bowel sounds, non tender, soft Extremities: normal inspection Edema: no edema noted Arm (L), no edema noted Arm (R), no edema noted Leg (L), no edema noted Leg (R), no edema noted Pedal (L), no edema noted Pedal (R), no edema noted Generalized Neurologic: motor weakness Skin: normal pigmentation, warm/dry Juanito Jerome DO Apr 20, 2018 14:18
--- NOTE | 2018-04-20 17:54 | Infectious Diseases Prog Note ---
Assessment/Plan Assessment/Plan Abx: Ancef 04/15-04/16 Assessment: Leukocytosis, resolved- suspect likely reactive to recent surgery -afebrile -u/a neg; ucx Neg -04/18 CXR: Development of trace right pleural effusion and right bibasilar opacities, likely atelectasis. Correlate clinically. Unchanged linear atelectasis or scarring in the left base. Fall w/ resultan R hip fracture -s/p ORIF 04/15 - CT chest: Compression fracture deformity of the T3, T7, and T8 vertebral bodies. Acuity indeterminate. Consider MRI for better characterization is clinically relevant. No other acute bony trauma. Bilateral basilar pulmonary parenchymal scarring and atelectasis, and nonspecific mild interstitial septal irregularity. 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 Chronic vertebral compression fractures -MRI T spine: T3, T7, T8 vertebral body compression fracture deformities. Lack of marrow signal changes indicating that these are chronic. Otherwise unremarkable exam Thyroid nodules Thyroid US: Heterogeneous thyroid with bilateral nodules, majority of which are subcentimeter. Nodule in the inferior left lobe of the thyroid with moderately suspicious pattern but size under 1.5 cm. Recommend follow-up ultrasound within 6 months to assess for stability. If there is interval change this may need FNA. HTN seizure disorder CKD anemia prior heroin abuse now on methadone Plan: -Continue to monitor off abx -f/u cx -Monitor CBC/CMP, temperatures; Trend WBC -aspiration precautions -Cdiff if diarrhea Thank you for this consultation. Will continue to follow along with you. Discussed with RN. Subjective Allergies: Coded Allergies: PENICILLINS (Unverified Allergy, Unknown, 04/14/18) Subjective afebrile leukocytosis improvnng off abx Objective Vital Signs Last 24 Hour Vital Signs Date Time Temp Pulse Resp B/P (MAP) Pulse Ox O2 Delivery O2 Flow Rate FiO2 04/20/18 16:49 177/98 04/20/18 16:00 98.9 84 17 177/98 (124) 99 98.9 04/20/18 13:04 98.0 04/20/18 12:34 98.0 04/20/18 12:00 98.6 86 19 166/102 (123) 97 98.6 04/20/18 09:31 Room Air 04/20/18 08:00 98.9 84 18 169/105 (126) 97 98.9 04/20/18 04:00 98.0 74 20 127/71 (89) 96 98.0 04/20/18 00:00 98.4 91 18 145/86 (105) 98 98.4 04/19/18 21:00 Room Air 04/19/18 20:00 98.4 87 18 155/98 (117) 97 98.4 Height (Feet): 5 Height (Inches): 5.00 Weight (Pounds): 116 Objective CARDIOVASCULAR: No murmur. LUNGS: Distant and clear. ABDOMEN: Bowel sound positive. Nontender. Nondistended. EXTREMITIES: No cyanosis, clubbing or edema. NEUROLOGIC: The patient is slightly weak, but moves all extremities. Laboratory Tests Test 04/20/18 06:10 White Blood Count 10.0 K/UL (4.8-10.8) Red Blood Count 4.10 M/UL (4.20-5.40) L Hemoglobin 8.8 G/DL (12.0-16.0) L Hematocrit 29.0 % (37.0-47.0) L Mean Corpuscular Volume 71 FL (80-99) L Mean Corpuscular Hemoglobin 21.3 PG (27.0-31.0) L Mean Corpuscular Hemoglobin Concent 30.2 G/DL (32.0-36.0) L Red Cell Distribution Width 18.4 % (11.6-14.8) H Platelet Count 257 K/UL (150-450) Mean Platelet Volume 6.9 FL (6.5-10.1) Neutrophils (%) (Auto) 77.8 % (45.0-75.0) H Lymphocytes (%) (Auto) 14.6 % (20.0-45.0) L Monocytes (%) (Auto) 5.7 % (1.0-10.0) Eosinophils (%) (Auto) 0.6 % (0.0-3.0) Basophils (%) (Auto) 1.5 % (0.0-2.0) Sodium Level 139 MMOL/L (136-145) Potassium Level 4.4 MMOL/L (3.5-5.1) Chloride Level 106 MMOL/L (98-107) Carbon Dioxide Level 23 MMOL/L (21-32) Anion Gap 10 mmol/L (5-15) Blood Urea Nitrogen 36 mg/dL (7-18) H Creatinine 1.5 MG/DL (0.55-1.30) H Estimat Glomerular Filtration Rate 42.3 mL/min (>60) Glucose Level 111 MG/DL (74-106) H Calcium Level 8.9 MG/DL (8.5-10.1) Current Medications Medications (Trade) Dose Ordered Sig/Deysi Route PRN Reason Start Time Stop Time Status Last Admin Dose Admin Acetaminophen (Tylenol) 650 mg Q4H PRN ORAL fever 04/15/18 08:00 05/15/18 07:59 Acetaminophen/ Hydrocodone Bitart ([place] 10/325) 1 tab Q6H PRN ORAL moderate pain 04/17/18 14:45 04/24/18 14:44 04/19/18 00:57 Barium Sulfate (Readi-Cat 2) 450 ml NOW PRN ORAL Radiology Procedure 04/20/18 15:15 04/22/18 15:02 Clonidine HCl (Catapres Tab) 0.1 mg Q6H PRN ORAL For High Blood Pressure 04/20/18 16:30 05/20/18 16:29 04/20/18 16:49 Dextrose (Dextrose 50%) 25 ml STAT PRN IV Hypoglycemia 04/18/18 19:30 05/18/18 19:29 Dextrose (Dextrose 50%) 50 ml STAT PRN IV Hypoglycemia 04/18/18 19:30 05/18/18 19:29 Docusate Sodium (Colace) 100 mg THREE TIMES A DAY ORAL 04/15/18 18:00 05/15/18 17:59 04/19/18 16:53 Famotidine (Pepcid) 20 mg BID ORAL 04/17/18 12:30 05/17/18 12:29 04/20/18 17:28 Heparin Sodium (Porcine) (Heparin 5000 units/ml) 5,000 units EVERY 12 HOURS SUBQ 04/15/18 09:00 05/15/18 08:59 04/20/18 08:29 Hydromorphone HCl (Dilaudid) 1 mg Q4H PRN IVP Severe Pain (Pain Scale 7-10) 04/17/18 15:00 04/22/18 14:59 04/20/18 12:34 Insulin Aspart (NovoLOG) BEFORE MEALS AND HS SUBQ 04/18/18 21:00 05/18/18 20:59 04/20/18 16:49 Iron Sucrose 100 mg/Sodium Chloride 60 ml @ 240 mls/hr BEDTIME IV 04/17/18 21:00 04/21/18 21:14 04/19/18 21:21 Lidocaine (Lidoderm 5% PATCH) 1 patch DAILY TDERMAL 04/15/18 14:30 05/15/18 14:29 04/20/18 08:28 Methadone HCl (Methadone HCl) 100 mg DAILY ORAL 04/16/18 09:00 04/23/18 08:59 04/20/18 08:28 Metoclopramide HCl (Reglan) 10 mg Q6H PRN IVP Nausea and Vomiting 04/15/18 17:30 05/15/18 17:29 Naloxone HCl (Narcan) 0.2 mg Q4H PRN IVP RESPRITORY DISTRESS 04/15/18 15:15 05/15/18 15:14 Polyethylene Glycol (Miralax) 17 gm HSPRN PRN ORAL Constipation 04/15/18 21:00 05/15/18 20:59 04/20/18 05:51 Sodium Chloride 1,000 ml @ 50 mls/hr Q20H IV 04/16/18 12:30 05/16/18 12:29 04/19/18 21:10 Zolpidem Tartrate (Ambien) 5 mg HSPRN PRN ORAL Insomnia 04/15/18 21:00 04/22/18 20:59 Mercedes Cramer M.D. Apr 20, 2018 17:54
[2018-04-20] MEDS: Iron Sucrose 100 MG in NS 55 ML IV SCH (20:21)
[2018-04-21] VITALS (7 sets, daily range): BP systolic 137–174; BP diastolic 83–93
[2018-04-21] MEDS: NovoLOG Insulin Flexpen SUBQ SCH ×4 (06:11→20:09)
--- NOTE | 2018-04-21 06:40 | General Progress Note ---
Assessment/Plan Problem List: (1) Diabetes ICD Codes: E11.9 - Type 2 diabetes mellitus without complications SNOMED: 46467259 (2) Hip fracture, right ICD Codes: S72.001A - Fracture of unspecified part of neck of right femur, initial encounter for closed fracture SNOMED: 155262412 (3) CKD (chronic kidney disease) ICD Codes: N18.9 - Chronic kidney disease, unspecified SNOMED: 699137998 Qualifiers: Qualified Codes: N18.9 - Chronic kidney disease, unspecified (4) Hypertension ICD Codes: I10 - Essential (primary) hypertension SNOMED: 26863558 Assessment/Plan continue blood glucose monitoring and NISS ac / hs Subjective Allergies: Coded Allergies: PENICILLINS (Unverified Allergy, Unknown, 04/14/18) All Systems: reviewed and negative except above Subjective events noted Objective Last 24 Hour Vital Signs Date Time Temp Pulse Resp B/P (MAP) Pulse Ox O2 Delivery O2 Flow Rate FiO2 04/21/18 04:00 97.0 78 20 158/92 (114) 100 97.0 04/21/18 00:00 96.5 79 20 154/93 (113) 100 96.5 04/20/18 21:00 Room Air 04/20/18 20:20 163/85 (111) 04/20/18 20:05 98.1 94 20 100 98.1 04/20/18 18:14 79 158/99 (118) 04/20/18 16:49 177/98 04/20/18 16:00 98.9 84 17 177/98 (124) 99 98.9 04/20/18 13:04 98.0 04/20/18 12:34 98.0 04/20/18 12:00 98.6 86 19 166/102 (123) 97 98.6 04/20/18 09:31 Room Air 04/20/18 08:00 98.9 84 18 169/105 (126) 97 98.9 Intake and Output 04/20/18 04/21/18 19:00 07:00 Intake Total 500 ml 400 ml Output Total 3 ml Balance 500 ml 397 ml IV Total 50 ml 400 ml Other 450 ml Output Urine Total 3 ml # Bowel Movements 1 Laboratory Tests 04/20/18 19:30: Stool Occult Blood [Pending] Height (Feet): 5 Height (Inches): 5.00 Weight (Pounds): 116 General Appearance: no apparent distress Neck: normal alignment Cardiovascular: normal rate Respiratory/Chest: lungs clear Abdomen: normal bowel sounds Pelvis: normal external exam Objective Current Medications Medications (Trade) Dose Ordered Sig/Deysi Route PRN Reason Start Time Stop Time Status Last Admin Dose Admin Acetaminophen (Tylenol) 650 mg Q4H PRN ORAL fever 04/15/18 08:00 05/15/18 07:59 Acetaminophen/ Hydrocodone Bitart ([place] 10/325) 1 tab Q6H PRN ORAL moderate pain 04/17/18 14:45 04/24/18 14:44 04/19/18 00:57 Barium Sulfate (Readi-Cat 2) 450 ml NOW PRN ORAL Radiology Procedure 04/20/18 15:15 04/22/18 15:02 Clonidine HCl (Catapres Tab) 0.1 mg Q6H PRN ORAL For High Blood Pressure 04/20/18 16:30 05/20/18 16:29 04/20/18 16:49 Dextrose (Dextrose 50%) 25 ml STAT PRN IV Hypoglycemia 04/18/18 19:30 05/18/18 19:29 Dextrose (Dextrose 50%) 50 ml STAT PRN IV Hypoglycemia 04/18/18 19:30 05/18/18 19:29 Docusate Sodium (Colace) 100 mg THREE TIMES A DAY ORAL 04/15/18 18:00 05/15/18 17:59 04/19/18 16:53 Famotidine (Pepcid) 20 mg BID ORAL 04/17/18 12:30 05/17/18 12:29 04/20/18 17:28 Heparin Sodium (Porcine) (Heparin 5000 units/ml) 5,000 units EVERY 12 HOURS SUBQ 04/15/18 09:00 05/15/18 08:59 04/20/18 20:23 Hydromorphone HCl (Dilaudid) 1 mg Q4H PRN IVP Severe Pain (Pain Scale 7-10) 04/17/18 15:00 04/22/18 14:59 04/20/18 20:21 Insulin Aspart (NovoLOG) BEFORE MEALS AND HS SUBQ 04/18/18 21:00 05/18/18 20:59 04/21/18 06:11 Iron Sucrose 100 mg/Sodium Chloride 60 ml @ 240 mls/hr BEDTIME IV 04/17/18 21:00 04/21/18 21:14 04/20/18 20:21 Lidocaine (Lidoderm 5% PATCH) 1 patch DAILY TDERMAL 04/15/18 14:30 05/15/18 14:29 04/20/18 08:28 Methadone HCl (Methadone HCl) 100 mg DAILY ORAL 04/16/18 09:00 04/23/18 08:59 04/20/18 08:28 Metoclopramide HCl (Reglan) 10 mg Q6H PRN IVP Nausea and Vomiting 04/15/18 17:30 05/15/18 17:29 Naloxone HCl (Narcan) 0.2 mg Q4H PRN IVP RESPRITORY DISTRESS 04/15/18 15:15 05/15/18 15:14 Polyethylene Glycol (Miralax) 17 gm HSPRN PRN ORAL Constipation 04/15/18 21:00 05/15/18 20:59 04/20/18 05:51 Sodium Chloride 1,000 ml @ 50 mls/hr Q20H IV 04/16/18 12:30 05/16/18 12:29 04/19/18 21:10 Zolpidem Tartrate (Ambien) 5 mg HSPRN PRN ORAL Insomnia 04/15/18 21:00 04/22/18 20:59 Item Value Date Time Bedside Blood Glucose 121 mg/dl H 04/21/18 0611 Bedside Blood Glucose 143 mg/dl H 04/20/18 2100 Bedside Blood Glucose 133 mg/dl H 04/20/18 1649 Bedside Blood Glucose 83 mg/dl 04/20/18 1145 Bedside Blood Glucose 107 mg/dl 04/20/18 0622 Kleber Nicholas MD Apr 21, 2018 06:40
[2018-04-21] MEDS: Docusate 100mg cap ORAL SCH ×3 (08:54→18:33)
[2018-04-21] MEDS: Heparin 5000 units/ml inj SUBQ SCH ×2 (08:57→20:27)
--- NOTE | 2018-04-21 11:28 | Nephrology Progress Note ---
Assessment/Plan Problem List: (1) Femur fracture, right Assessment: surgery 04/15 (2) CKD (chronic kidney disease) (3) Anemia Assessment: low MCV (4) Lytic lesion of bone on x-ray (5) Compression fracture (6) Hypertension (7) Hypoalbuminemia Assessment stable- Cr lower to 1.5 Hgb higher Plan aggressive breathin treatment IV Iron- Uriine culture negative avoid nephrotoxics Post op care monitor renal parameters BP control check urine culture check Thyroid panel DC planning when WBCs wnl check cxr Right kidney: Right kidney measures 9.2 x 3.6 x 5.3 cm.. no stones. No hydronephrosis. Left kidney: Somewhat limited evaluation due to body habitus and bowel gas. Kidney measures 8.6 x 4.5 x 5.0 cm. Mild dilatation of left renal ureter measuring 9 mm. No stones or masses. Bladder: Bilateral ureteral jets are seen. Urinary bladder volume 229. IMPRESSION: Mild dilatation of left renal ureter measuring 9 mm. Subjective ROS Limited/Unobtainable: No Objective Objective Last 24 Hour Vital Signs Date Time Temp Pulse Resp B/P (MAP) Pulse Ox O2 Delivery O2 Flow Rate FiO2 04/21/18 10:54 72 144/89 (107) 04/21/18 09:00 Room Air 04/21/18 08:56 174/92 04/21/18 08:00 99.0 81 20 174/92 (119) 95 99.0 04/21/18 04:00 97.0 78 20 158/92 (114) 100 97.0 04/21/18 00:00 96.5 79 20 154/93 (113) 100 96.5 04/20/18 21:00 Room Air 04/20/18 20:20 163/85 (111) 04/20/18 20:05 98.1 94 20 100 98.1 04/20/18 18:14 79 158/99 (118) 04/20/18 16:49 177/98 04/20/18 16:00 98.9 84 17 177/98 (124) 99 98.9 04/20/18 13:04 98.0 04/20/18 12:34 98.0 04/20/18 12:00 98.6 86 19 166/102 (123) 97 98.6 Intake and Output 04/20/18 04/21/18 19:00 07:00 Intake Total 500 ml 400 ml Output Total 3 ml Balance 500 ml 397 ml IV Total 50 ml 400 ml Other 450 ml Output Urine Total 3 ml # Bowel Movements 1 Laboratory Tests 04/20/18 19:30: Stool Occult Blood Negative Height (Feet): 5 Height (Inches): 5.00 Weight (Pounds): 116 General Appearance: no apparent distress Objective no change Pasquale Ross MD Apr 21, 2018 11:28
--- NOTE | 2018-04-21 12:51 | Diagnostic Imaging Report ---
Indication: Abdominal pain, elevated carcinoembryonic antigen comminuted fracture Technique: Spiral acquisitions obtained through the abdomen and pelvis. Patient given oral contrast. No IV contrast utilized, per referring physician request.. Multiplanar reconstructions were generated. Total dose length product 514.28 mGycm. CTDIvol(s) 10.82 mGy. Dose reduction achieved using automated exposure control Comparison: None Reference is made to head CT dated 04/14/2018 Findings: The appendix is normal. Ingested contrast is seen throughout the entirety of the small bowel and nearly through the entirety of the colon. There is colonic diverticulosis. No evidence of diverticulitis. No small bowel distention or small bowel wall thickening. No free or loculated intraperitoneal air or fluid is evident. Distal esophagus, stomach, duodenum are unremarkable. The lack of IV contrast limits assessment of the solid organs. The liver, gallbladder are unremarkable. The extra hepatic bile ducts are upper limits of normal in caliber. The pancreas, spleen, adrenals, kidneys are unremarkable. No retroperitoneal or mesenteric mass or adenopathy. No pelvic mass or adenopathy. The bones demonstrate right hip hardware reducing previously reported intertrochanteric fracture. Small focal osteolytic lesion of the right iliac bone is again demonstrated, unchanged. The bones are otherwise unremarkable. The included lung bases demonstrate some basilar and posterior dependent atelectatic changes. Impression: No acute abnormality. No definite abnormality to explain stated clinical history of elevated carcinoembryonic antigen colonic diverticulosis. No evidence of diverticulitis Evidence of recent right hip [ reduction for repair of recent reported right intertrochanteric fracture Unchanged nonspecific small osteolytic focus in the right iliac bone Basilar and posterior dependent pulmonary frontal atelectatic changes incidentally noted The CT scanner at [facility] is accredited by the [employer] and the scans are performed using protocols designed to limit radiation exposure to as low as reasonably achievable to attain images of sufficient resolution adequate for diagnostic evaluation.
--- NOTE | 2018-04-21 13:42 | General Progress Note ---
Assessment/Plan Problem List: (1) Femur fracture, right ICD Codes: S72.91XA - Unspecified fracture of right femur, initial encounter for closed fracture SNOMED: 27253513 Qualifiers: Qualified Codes: S72.141A - Displaced intertrochanteric fracture of right femur, initial encounter for closed fracture (2) Anemia ICD Codes: D64.9 - Anemia, unspecified SNOMED: 781636327 Qualifiers: Qualified Codes: D64.9 - Anemia, unspecified (3) CKD (chronic kidney disease) ICD Codes: N18.9 - Chronic kidney disease, unspecified SNOMED: [id number] Qualifiers: Qualified Codes: N18.9 - Chronic kidney disease, unspecified (4) Intertrochanteric fracture of right femur ICD Codes: S72.141A - Displaced intertrochanteric fracture of right femur, initial encounter for closed fracture SNOMED: [id number] Qualifiers: Qualified Codes: S72.141A - Displaced intertrochanteric fracture of right femur, initial encounter for closed fracture Status: stable, progressing Assessment/Plan ot pt diet pain control cbc bmp am dc to snf if clear Subjective Constitutional: Reports: weakness Allergies: Coded Allergies: PENICILLINS (Unverified Allergy, Unknown, 04/14/18) All Systems: reviewed and negative except above Subjective o2nc sleepy calm Objective Last 24 Hour Vital Signs Date Time Temp Pulse Resp B/P (MAP) Pulse Ox O2 Delivery O2 Flow Rate FiO2 04/21/18 12:00 97.9 69 20 137/83 (101) 97.9 04/21/18 10:54 72 144/89 (107) 04/21/18 09:00 Room Air 04/21/18 08:56 174/92 04/21/18 08:00 99.0 81 20 174/92 (119) 95 99.0 04/21/18 04:00 97.0 78 20 158/92 (114) 100 97.0 04/21/18 00:00 96.5 79 20 154/93 (113) 100 96.5 04/20/18 21:00 Room Air 04/20/18 20:20 163/85 (111) 04/20/18 20:05 98.1 94 20 100 98.1 04/20/18 18:14 79 158/99 (118) 04/20/18 16:49 177/98 04/20/18 16:00 98.9 84 17 177/98 (124) 99 98.9 Intake and Output 04/20/18 04/21/18 19:00 07:00 Intake Total 500 ml 400 ml Output Total 3 ml Balance 500 ml 397 ml IV Total 50 ml 400 ml Other 450 ml Output Urine Total 3 ml # Bowel Movements 1 Laboratory Tests 04/20/18 19:30: Stool Occult Blood Negative Height (Feet): 5 Height (Inches): 5.00 Weight (Pounds): 116 General Appearance: lethargic EENT: normal ENT inspection Neck: normal alignment Cardiovascular: normal peripheral pulses, normal rate, regular rhythm Respiratory/Chest: chest wall non-tender, lungs clear, normal breath sounds Abdomen: normal bowel sounds, non tender, soft Extremities: normal inspection Edema: no edema noted Arm (L), no edema noted Arm (R), no edema noted Leg (L), no edema noted Leg (R), no edema noted Pedal (L), no edema noted Pedal (R), no edema noted Generalized Neurologic: motor weakness Skin: normal pigmentation, warm/dry Juanito Jerome DO Apr 21, 2018 13:42
--- NOTE | 2018-04-21 14:23 | Pulmonology Progress Note ---
Assessment/Plan Problems: (1) Lytic lesion of bone on x-ray (2) Elevated CEA (3) Intertrochanteric fracture of right femur (4) Hip fracture, right (5) Compression fracture (6) Anemia (7) Diabetes (8) Hypertension (9) Hypoalbuminemia (10) Protein-calorie malnutrition, severe Assessment/Plan CT abdomen done, negative for any mass stool for OB negative Hem and GI evaluation all reviewed symptomatic treatment check electrolytes dc planning Subjective ROS Limited/Unobtainable: No Constitutional: Reports: no symptoms HEENT: Repors: no symptoms Allergies: Coded Allergies: PENICILLINS (Unverified Allergy, Unknown, 04/14/18) Objective Last 24 Hour Vital Signs Date Time Temp Pulse Resp B/P (MAP) Pulse Ox O2 Delivery O2 Flow Rate FiO2 04/21/18 12:00 97.9 69 20 137/83 (101) 97.9 04/21/18 10:54 72 144/89 (107) 04/21/18 09:00 Room Air 04/21/18 08:56 174/92 04/21/18 08:00 99.0 81 20 174/92 (119) 95 99.0 04/21/18 04:00 97.0 78 20 158/92 (114) 100 97.0 04/21/18 00:00 96.5 79 20 154/93 (113) 100 96.5 04/20/18 21:00 Room Air 04/20/18 20:20 163/85 (111) 04/20/18 20:05 98.1 94 20 100 98.1 04/20/18 18:14 79 158/99 (118) 04/20/18 16:49 177/98 04/20/18 16:00 98.9 84 17 177/98 (124) 99 98.9 Intake and Output 04/20/18 04/21/18 19:00 07:00 Intake Total 500 ml 400 ml Output Total 3 ml Balance 500 ml 397 ml IV Total 50 ml 400 ml Other 450 ml Output Urine Total 3 ml # Bowel Movements 1 General Appearance: cachetic HEENT: normocephalic, atraumatic Respiratory/Chest: chest wall non-tender, lungs clear Cardiovascular: normal peripheral pulses, normal rate Abdomen: normal bowel sounds, soft, non tender Genitourinary: normal external genitalia Extremities: no cyanosis 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 Laboratory Tests 04/20/18 19:30: Stool Occult Blood Negative Current Medications Medications (Trade) Dose Ordered Sig/Deysi Route PRN Reason Start Time Stop Time Status Last Admin Dose Admin Acetaminophen (Tylenol) 650 mg Q4H PRN ORAL fever 04/15/18 08:00 05/15/18 07:59 Acetaminophen/ Hydrocodone Bitart (Schneider 10/325) 1 tab Q6H PRN ORAL moderate pain 04/17/18 14:45 04/24/18 14:44 04/19/18 00:57 Barium Sulfate (Readi-Cat 2) 450 ml NOW PRN ORAL Radiology Procedure 04/20/18 15:15 04/22/18 15:02 Clonidine HCl (Catapres Tab) 0.1 mg Q6H PRN ORAL For High Blood Pressure 04/20/18 16:30 05/20/18 16:29 04/21/18 08:56 Dextrose (Dextrose 50%) 25 ml STAT PRN IV Hypoglycemia 04/18/18 19:30 05/18/18 19:29 Dextrose (Dextrose 50%) 50 ml STAT PRN IV Hypoglycemia 04/18/18 19:30 05/18/18 19:29 Docusate Sodium (Colace) 100 mg THREE TIMES A DAY ORAL 04/15/18 18:00 05/15/18 17:59 04/21/18 08:54 Famotidine (Pepcid) 20 mg BID ORAL 04/17/18 12:30 05/17/18 12:29 04/21/18 08:54 Heparin Sodium (Porcine) (Heparin 5000 units/ml) 5,000 units EVERY 12 HOURS SUBQ 04/15/18 09:00 05/15/18 08:59 04/21/18 08:57 Hydromorphone HCl (Dilaudid) 1 mg Q4H PRN IVP Severe Pain (Pain Scale 7-10) 04/17/18 15:00 04/22/18 14:59 04/20/18 20:21 Insulin Aspart (NovoLOG) BEFORE MEALS AND HS SUBQ 04/18/18 21:00 05/18/18 20:59 04/21/18 06:11 Iron Sucrose 100 mg/Sodium Chloride 60 ml @ 240 mls/hr BEDTIME IV 04/17/18 21:00 04/21/18 21:14 04/20/18 20:21 Lidocaine (Lidoderm 5% PATCH) 1 patch DAILY TDERMAL 04/15/18 14:30 05/15/18 14:29 04/21/18 08:54 Methadone HCl (Methadone HCl) 100 mg DAILY ORAL 04/16/18 09:00 04/23/18 08:59 04/21/18 08:55 Metoclopramide HCl (Reglan) 10 mg Q6H PRN IVP Nausea and Vomiting 04/15/18 17:30 05/15/18 17:29 Naloxone HCl (Narcan) 0.2 mg Q4H PRN IVP RESPRITORY DISTRESS 04/15/18 15:15 05/15/18 15:14 Polyethylene Glycol (Miralax) 17 gm HSPRN PRN ORAL Constipation 04/15/18 21:00 05/15/18 20:59 04/20/18 05:51 Sodium Chloride 1,000 ml @ 50 mls/hr Q20H IV 04/16/18 12:30 05/16/18 12:29 04/21/18 13:06 Zolpidem Tartrate (Ambien) 5 mg HSPRN PRN ORAL Insomnia 04/15/18 21:00 04/22/18 20:59 Rufina Venegas MD Apr 21, 2018 14:23
--- NOTE | 2018-04-21 16:41 | General Progress Note ---
Assessment/Plan Assessment/Plan (1) Right hip fracture s/p ORIF (2) Right hip pain s/p fall (3) Thoracic compression fracture (4) H/o heroin abuse on methadone maintenance Pt will be continued on methadone, Dilaudid and [place]. D/w Dr. Drummond and he concurred. Subjective Date patient seen: Apr 21, 2018 Time patient seen: 03:15 - am Allergies: Coded Allergies: PENICILLINS (Unverified Allergy, Unknown, 04/14/18) Subjective REVIEW OF SYSTEMS: Denies rash, fever, chills, sweating, dizziness, drowsiness, blurred vision, sore throat, or change in weight. No shortness of breath or chest pain. No nausea, vomiting, diarrhea, or blood in the stool or urine. No bowel or bladder incontinence. No dysuria. She is complaining of right hip pain. SUBJECTIVE: Patient is in bed reporting the pain at a mild level. Having difficulty walking but continues to do PT to the best of her abilities. Objective Last 24 Hour Vital Signs Date Time Temp Pulse Resp B/P (MAP) Pulse Ox O2 Delivery O2 Flow Rate FiO2 04/21/18 12:00 97.9 69 20 137/83 (101) 97.9 04/21/18 10:54 72 144/89 (107) 04/21/18 09:00 Room Air 04/21/18 08:56 174/92 04/21/18 08:00 99.0 81 20 174/92 (119) 95 99.0 04/21/18 04:00 97.0 78 20 158/92 (114) 100 97.0 04/21/18 00:00 96.5 79 20 154/93 (113) 100 96.5 04/20/18 21:00 Room Air 04/20/18 20:20 163/85 (111) 04/20/18 20:05 98.1 94 20 100 98.1 04/20/18 18:14 79 158/99 (118) 04/20/18 16:49 177/98 Intake and Output 04/20/18 04/21/18 19:00 07:00 Intake Total 500 ml 400 ml Output Total 3 ml Balance 500 ml 397 ml IV Total 50 ml 400 ml Other 450 ml Output Urine Total 3 ml # Bowel Movements 1 Laboratory Tests 04/20/18 19:30: Stool Occult Blood Negative Height (Feet): 5 Height (Inches): 5.00 Weight (Pounds): 116 Objective GENERAL: Alert, awake, and oriented x3. LUNGS: Decreased breath sounds bilaterally. HEART: S1S2 Regular. ABDOMEN: Benign. EXTREMITIES: Lower extremity range of motion is decreased. The patient has tenderness to palpation to the right hip, bandages applied No cyanosis. No clubbing. No edema. NEURO: No changes. Procedure: MRI T Spine no Contrast Indication: Chronic arm and back pain Technique: Sagittal T1 fast spin echo, sagittal T2 fast echo, sagittal STIR, axial T2 fast spin echo images were obtained through the thoracic spine Comparison: Findings: Bony alignment is normal. There is loss of height anteriorly of the T3 vertebral body. There is very subtle slight anterior loss of height of the T7 and T8 vertebral bodies. These all demonstrate normal marrow signal, however. There is no evidence posterior retropulsion. Vertebral body marrow signal is overall normal. There is slight smooth kyphotic deformity. Intrinsic cord signal is normal. No significant disc bulge or protrusion, spinal stenosis, or neural foraminal narrowing noted. The included extraspinal soft tissues are unremarkable Impression: T3, T7, T8 vertebral body compression fracture deformities. Lack of marrow signal changes indicating that these are chronic. Otherwise unremarkable exam Jhony Whittaker Apr 21, 2018 16:41
--- NOTE | 2018-04-21 18:31 | Infectious Diseases Prog Note ---
Assessment/Plan Assessment/Plan Abx: Ancef 04/15-04/16 Assessment: Leukocytosis, resolved- suspect likely reactive to recent surgery -afebrile -u/a neg; ucx Neg -04/18 CXR: Development of trace right pleural effusion and right bibasilar opacities, likely atelectasis. Correlate clinically. Unchanged linear atelectasis or scarring in the left base. Fall w/ resultan R hip fracture -s/p ORIF 04/15 - CT chest: Compression fracture deformity of the T3, T7, and T8 vertebral bodies. Acuity indeterminate. Consider MRI for better characterization is clinically relevant. No other acute bony trauma. Bilateral basilar pulmonary parenchymal scarring and atelectasis, and nonspecific mild interstitial septal irregularity. 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 Chronic vertebral compression fractures -MRI T spine: T3, T7, T8 vertebral body compression fracture deformities. Lack of marrow signal changes indicating that these are chronic. Otherwise unremarkable exam Thyroid nodules Thyroid US: Heterogeneous thyroid with bilateral nodules, majority of which are subcentimeter. Nodule in the inferior left lobe of the thyroid with moderately suspicious pattern but size under 1.5 cm. Recommend follow-up ultrasound within 6 months to assess for stability. If there is interval change this may need FNA. HTN seizure disorder CKD anemia prior heroin abuse now on methadone Plan: -Continue to monitor off abx; ok to discharge off abx -f/u cx -Monitor CBC/CMP, temperatures; Trend WBC -aspiration precautions -Cdiff if diarrhea Thank you for this consultation. Will continue to follow along with you. Discussed with RN. Subjective Allergies: Coded Allergies: PENICILLINS (Unverified Allergy, Unknown, 04/14/18) Subjective afebrile leukocytosis resolved off abx Objective Vital Signs Last 24 Hour Vital Signs Date Time Temp Pulse Resp B/P (MAP) Pulse Ox O2 Delivery O2 Flow Rate FiO2 04/21/18 16:00 98.3 74 18 149/85 (106) 95 98.3 04/21/18 12:00 97.9 69 20 137/83 (101) 97.9 04/21/18 10:54 72 144/89 (107) 04/21/18 09:00 Room Air 04/21/18 08:56 174/92 04/21/18 08:00 99.0 81 20 174/92 (119) 95 99.0 04/21/18 04:00 97.0 78 20 158/92 (114) 100 97.0 04/21/18 00:00 96.5 79 20 154/93 (113) 100 96.5 04/20/18 21:00 Room Air 04/20/18 20:20 163/85 (111) 04/20/18 20:05 98.1 94 20 100 98.1 Height (Feet): 5 Height (Inches): 5.00 Weight (Pounds): 116 Objective CARDIOVASCULAR: No murmur. LUNGS: Distant and clear. ABDOMEN: Bowel sound positive. Nontender. Nondistended. EXTREMITIES: No cyanosis, clubbing or edema. NEUROLOGIC: The patient is slightly weak, but moves all extremities. Laboratory Tests Test 04/20/18 19:30 Stool Occult Blood Negative (NEGATIVE) Current Medications Medications (Trade) Dose Ordered Sig/Deysi Route PRN Reason Start Time Stop Time Status Last Admin Dose Admin Acetaminophen (Tylenol) 650 mg Q4H PRN ORAL fever 04/15/18 08:00 05/15/18 07:59 Acetaminophen/ Hydrocodone Bitart ([place] 10/325) 1 tab Q6H PRN ORAL moderate pain 04/17/18 14:45 04/24/18 14:44 04/19/18 00:57 Barium Sulfate (Readi-Cat 2) 450 ml NOW PRN ORAL Radiology Procedure 04/20/18 15:15 04/22/18 15:02 Clonidine HCl (Catapres Tab) 0.1 mg Q6H PRN ORAL For High Blood Pressure 04/20/18 16:30 05/20/18 16:29 04/21/18 08:56 Dextrose (Dextrose 50%) 25 ml STAT PRN IV Hypoglycemia 04/18/18 19:30 05/18/18 19:29 Dextrose (Dextrose 50%) 50 ml STAT PRN IV Hypoglycemia 04/18/18 19:30 05/18/18 19:29 Docusate Sodium (Colace) 100 mg THREE TIMES A DAY ORAL 04/15/18 18:00 05/15/18 17:59 04/21/18 08:54 Famotidine (Pepcid) 20 mg BID ORAL 04/17/18 12:30 05/17/18 12:29 04/21/18 08:54 Heparin Sodium (Porcine) (Heparin 5000 units/ml) 5,000 units EVERY 12 HOURS SUBQ 04/15/18 09:00 05/15/18 08:59 04/21/18 08:57 Hydromorphone HCl (Dilaudid) 1 mg Q4H PRN IVP Severe Pain (Pain Scale 7-10) 04/17/18 15:00 04/22/18 14:59 04/20/18 20:21 Insulin Aspart (NovoLOG) BEFORE MEALS AND HS SUBQ 04/18/18 21:00 05/18/18 20:59 04/21/18 06:11 Iron Sucrose 100 mg/Sodium Chloride 60 ml @ 240 mls/hr BEDTIME IV 04/17/18 21:00 04/21/18 21:14 04/20/18 20:21 Lidocaine (Lidoderm 5% PATCH) 1 patch DAILY TDERMAL 04/15/18 14:30 05/15/18 14:29 04/21/18 08:54 Methadone HCl (Methadone HCl) 100 mg DAILY ORAL 04/16/18 09:00 04/23/18 08:59 04/21/18 08:55 Metoclopramide HCl (Reglan) 10 mg Q6H PRN IVP Nausea and Vomiting 04/15/18 17:30 05/15/18 17:29 Naloxone HCl (Narcan) 0.2 mg Q4H PRN IVP RESPRITORY DISTRESS 04/15/18 15:15 05/15/18 15:14 Polyethylene Glycol (Miralax) 17 gm HSPRN PRN ORAL Constipation 04/15/18 21:00 05/15/18 20:59 04/20/18 05:51 Sodium Chloride 1,000 ml @ 50 mls/hr Q20H IV 04/16/18 12:30 05/16/18 12:29 04/21/18 13:06 Zolpidem Tartrate (Ambien) 5 mg HSPRN PRN ORAL Insomnia 04/15/18 21:00 04/22/18 20:59 Mercedes Cramer M.D. Apr 21, 2018 18:31
[2018-04-21] MEDS: Iron Sucrose 100 MG in NS 55 ML IV SCH (20:22)
--- NOTE | 2018-04-21 22:45 | Consultation ---
DATE OF CONSULTATION: 04/21/2018 HEMATOLOGY/ONCOLOGY CONSULTATION CONSULTING PHYSICIAN: Jose Maria Peña M.D. REQUESTING PHYSICIAN: Juanito Jerome D.O. REASON FOR CONSULTATION: Evaluation of iron deficiency anemia. IDENTIFYING DATA: Dear Dr. Juanito Jerome, The patient is a pleasant 62-year-old female with history of hypertension, seizure disorder, CKD as well as CAD, at this time presents with anemia, history of heroin use, has been on methadone in the ER in the right hip after a recent fall, found to have a right hip fracture and spinal fracture. The patient was noted to have leukocytosis, has been afebrile. ID Service has been consulted for most likely leukocytosis secondary to recent surgery. Imaging has been reviewed. Multinodular goiter is noted in the thyroid and Hematology Service was consulted for ongoing anemia. The patient noted to be iron deficient again and has been started on iron treatment. PAST MEDICAL HISTORY: As noted above, CKD, anemia, heroin abuse, and hypertension. PAST SURGICAL HISTORY: Right hip ORIF. ALLERGIES: Penicillin. REVIEW OF SYSTEMS: Difficult to obtain. SOCIAL HISTORY: No alcohol, tobacco, or illicit drug use. MEDICATIONS: Medications have been reviewed. PHYSICAL EXAMINATION: VITAL SIGNS: Reviewed. GENERAL: No acute distress. PULMONARY: Decreased breath sounds. Some crackles noted. CARDIOVASCULAR: Regular rate. No S3 or S4. ABDOMEN: Soft, nontender, and nondistended. EXTREMITIES: 1+ edema. LABORATORY AND DIAGNOSTIC DATA: BUN of 36, creatinine 1.5. WBC 10, hemoglobin 8.9, hematocrit 29, MCV 71, platelet count 257,000. ESR of 32. ASSESSMENT AND RECOMMENDATION: 1. Anemia of iron deficiency, which is severe iron deficiency. The patient has been begun on IV iron. 2. Anemia due to kidney disease. Creatinine currently improving. Continue to monitor as creatinine improves. 3. Multiple compression fractures. 4. T3, T7, and T8 compression fractures. 5. Leukocytosis secondary to recent surgery. 6. Diabetes mellitus. Hemoglobin A1c goal less than 7. I appreciate the consultation. Jose Maria Peña M.D. DR: SHANDA JOB#: [id number] CC:
[2018-04-22] VITALS: BP 161/106
[2018-04-22 02:49] VITALS: BP 154/79
[2018-04-22 04:25] VITALS: BP 152/82
[2018-04-22] MEDS: NovoLOG Insulin Flexpen SUBQ SCH ×2 (05:30→11:30)
[2018-04-22 06:44] LABS: BASOPHILS % (AUTO) 1.4 % (0.0-2.0); EOSINOPHILS % (AUTO) 0.9 % (0.0-3.0); HEMATOCRIT 32.6 % (37.0-47.0); HEMOGLOBIN 9.4 G/DL (12.0-16.0); LYMPHOCYTES % (AUTO) 18.5 % (20.0-45.0); MEAN CORPUSCULAR VOLUME 75 FL (80-99); MONOCYTES % (AUTO) 7.2 % (1.0-10.0); PLATELET COUNT 208 K/UL (150-450); RED BLOOD COUNT 4.33 M/UL (4.20-5.40); RED CELL DISTRIBUTION WIDTH 26.1 % (11.6-14.8); WHITE BLOOD COUNT 8.8 K/UL (4.8-10.8)
[2018-04-22 06:53] LABS: ANION GAP 8 mmol/L (5-15); BLOOD UREA NITROGEN 40 mg/dL (7-18); CALCIUM 9.1 MG/DL (8.5-10.1); CARBON DIOXIDE 24 MMOL/L (21-32); CHLORIDE 106 MMOL/L (98-107); CREATININE 1.4 MG/DL (0.55-1.30); SODIUM 138 MMOL/L (136-145)
[2018-04-22 08:00] VITALS: BP 175/90
[2018-04-22] MEDS: Heparin 5000 units/ml inj SUBQ SCH (09:19)
[2018-04-22] MEDS: Docusate 100mg cap ORAL SCH ×2 (09:19→13:29)
[2018-04-22 10:25] LABS: ALANINE AMINOTRANSFERASE 46 U/L (12-78); ALBUMIN 2.7 G/DL (3.4-5.0); ALKALINE PHOSPHATASE 76 U/L (46-116); ASPARTATE AMINO TRANSFERASE 62 U/L (15-37); BILIRUBIN,DIRECT 0.1 MG/DL (0.0-0.3); BILIRUBIN,TOTAL 0.1 MG/DL (0.2-1.0); PHOSPHORUS 3.9 MG/DL (2.5-4.9)
--- NOTE | 2018-04-22 10:32 | Nephrology Progress Note ---
Assessment/Plan Problem List: (1) Femur fracture, right Assessment: surgery 04/15 (2) CKD (chronic kidney disease) (3) Anemia Assessment: low MCV (4) Lytic lesion of bone on x-ray (5) Compression fracture (6) Hypertension (7) Hypoalbuminemia Assessment stable- Cr lower to 1.5 Hgb higher Plan mag supplement breathing treatment IV Iron- Uriine culture negative avoid nephrotoxics Post op care monitor renal parameters BP control check urine culture check Thyroid panel DC planning when WBCs wnl check cxr Right kidney: Right kidney measures 9.2 x 3.6 x 5.3 cm.. no stones. No hydronephrosis. Left kidney: Somewhat limited evaluation due to body habitus and bowel gas. Kidney measures 8.6 x 4.5 x 5.0 cm. Mild dilatation of left renal ureter measuring 9 mm. No stones or masses. Bladder: Bilateral ureteral jets are seen. Urinary bladder volume 229. IMPRESSION: Mild dilatation of left renal ureter measuring 9 mm. Subjective ROS Limited/Unobtainable: No Constitutional: Reports: malaise Objective Objective Last 24 Hour Vital Signs Date Time Temp Pulse Resp B/P (MAP) Pulse Ox O2 Delivery O2 Flow Rate FiO2 04/22/18 08:28 175/90 04/22/18 08:00 98.2 80 20 175/90 (118) 95 98.2 04/22/18 04:25 97.6 72 18 152/82 (105) 97 97.6 04/22/18 02:49 94 154/79 (104) 04/22/18 01:06 161/106 04/22/18 00:00 99.4 90 18 161/106 (124) 95 99.4 04/21/18 21:37 Room Air 04/21/18 20:00 98.4 81 18 150/90 (110) 98 98.4 04/21/18 16:00 98.3 74 18 149/85 (106) 95 98.3 04/21/18 12:00 97.9 69 20 137/83 (101) 97.9 04/21/18 10:54 72 144/89 (107) Intake and Output 04/21/18 04/22/18 19:00 07:00 Intake Total 610 ml 730 ml Balance 610 ml 730 ml Intake Oral 360 ml 120 ml IV Total 250 ml 610 ml # Voids 3 3 # Bowel Movements 4 1 Laboratory Tests 04/22/18 05:50: White Blood Count 8.8, Red Blood Count 4.33, Hemoglobin 9.4L, Hematocrit 32.6L, Mean Corpuscular Volume 75L, Mean Corpuscular Hemoglobin 21.8L, Mean Corpuscular Hemoglobin Concent 29.0L, Red Cell Distribution Width 26.1H, Platelet Count 208, Mean Platelet Volume 6.3L, Neutrophils (%) (Auto) 72.0, Lymphocytes (%) (Auto) 18.5L, Monocytes (%) (Auto) 7.2, Eosinophils (%) (Auto) 0.9, Basophils (%) (Auto) 1.4, Sodium Level 138, Potassium Level 5.0, Chloride Level 106, Carbon Dioxide Level 24, Anion Gap 8, Blood Urea Nitrogen 40H, Creatinine 1.4H, Estimat Glomerular Filtration Rate 45.8, Glucose Level 89, Calcium Level 9.1, Phosphorus Level 3.9, Magnesium Level 1.7L, Total Bilirubin 0.1L, Direct Bilirubin 0.1, Aspartate Amino Transf (AST/SGOT) 62H, Alanine Aminotransferase (ALT/SGPT) 46, Alkaline Phosphatase 76, Total Protein 7.6, Albumin 2.7L Height (Feet): 5 Height (Inches): 5.00 Weight (Pounds): 116 General Appearance: no apparent distress Respiratory/Chest: decreased breath sounds Abdomen: soft Objective no change Pasquale Ross MD Apr 22, 2018 10:32
--- NOTE | 2018-04-22 10:58 | General Progress Note ---
Assessment/Plan Problem List: (1) Femur fracture, right ICD Codes: S72.91XA - Unspecified fracture of right femur, initial encounter for closed fracture SNOMED: 35228015 Qualifiers: Qualified Codes: S72.141A - Displaced intertrochanteric fracture of right femur, initial encounter for closed fracture (2) Anemia ICD Codes: D64.9 - Anemia, unspecified SNOMED: 279889867 Qualifiers: Qualified Codes: D64.9 - Anemia, unspecified (3) CKD (chronic kidney disease) ICD Codes: N18.9 - Chronic kidney disease, unspecified SNOMED: 215192709 Qualifiers: Qualified Codes: N18.9 - Chronic kidney disease, unspecified (4) Intertrochanteric fracture of right femur ICD Codes: S72.141A - Displaced intertrochanteric fracture of right femur, initial encounter for closed fracture SNOMED: [id number] Qualifiers: Qualified Codes: S72.141A - Displaced intertrochanteric fracture of right femur, initial encounter for closed fracture Status: stable, progressing Assessment/Plan ot pt diet pain control dc to snf if clear Subjective Constitutional: Reports: weakness Allergies: Coded Allergies: PENICILLINS (Unverified Allergy, Unknown, 04/14/18) All Systems: reviewed and negative except above Subjective o2nc sleepy calm Objective Last 24 Hour Vital Signs Date Time Temp Pulse Resp B/P (MAP) Pulse Ox O2 Delivery O2 Flow Rate FiO2 04/22/18 08:28 175/90 04/22/18 08:00 98.2 80 20 175/90 (118) 95 98.2 04/22/18 04:25 97.6 72 18 152/82 (105) 97 97.6 04/22/18 02:49 94 154/79 (104) 04/22/18 01:06 161/106 04/22/18 00:00 99.4 90 18 161/106 (124) 95 99.4 04/21/18 21:37 Room Air 04/21/18 20:00 98.4 81 18 150/90 (110) 98 98.4 04/21/18 16:00 98.3 74 18 149/85 (106) 95 98.3 04/21/18 12:00 97.9 69 20 137/83 (101) 97.9 Intake and Output 04/21/18 04/22/18 19:00 07:00 Intake Total 610 ml 730 ml Balance 610 ml 730 ml Intake Oral 360 ml 120 ml IV Total 250 ml 610 ml # Voids 3 3 # Bowel Movements 4 1 Laboratory Tests 04/22/18 05:50: White Blood Count 8.8, Red Blood Count 4.33, Hemoglobin 9.4L, Hematocrit 32.6L, Mean Corpuscular Volume 75L, Mean Corpuscular Hemoglobin 21.8L, Mean Corpuscular Hemoglobin Concent 29.0L, Red Cell Distribution Width 26.1H, Platelet Count 208, Mean Platelet Volume 6.3L, Neutrophils (%) (Auto) 72.0, Lymphocytes (%) (Auto) 18.5L, Monocytes (%) (Auto) 7.2, Eosinophils (%) (Auto) 0.9, Basophils (%) (Auto) 1.4, Sodium Level 138, Potassium Level 5.0, Chloride Level 106, Carbon Dioxide Level 24, Anion Gap 8, Blood Urea Nitrogen 40H, Creatinine 1.4H, Estimat Glomerular Filtration Rate 45.8, Glucose Level 89, Calcium Level 9.1, Phosphorus Level 3.9, Magnesium Level 1.7L, Total Bilirubin 0.1L, Direct Bilirubin 0.1, Aspartate Amino Transf (AST/SGOT) 62H, Alanine Aminotransferase (ALT/SGPT) 46, Alkaline Phosphatase 76, Total Protein 7.6, Albumin 2.7L Height (Feet): 5 Height (Inches): 5.00 Weight (Pounds): 116 General Appearance: lethargic EENT: normal ENT inspection Neck: normal alignment Cardiovascular: normal peripheral pulses, normal rate, regular rhythm Respiratory/Chest: chest wall non-tender, lungs clear, normal breath sounds Abdomen: normal bowel sounds, non tender, soft Extremities: normal inspection Edema: no edema noted Arm (L), no edema noted Arm (R), no edema noted Leg (L), no edema noted Leg (R), no edema noted Pedal (L), no edema noted Pedal (R), no edema noted Generalized Neurologic: motor weakness Skin: normal pigmentation, warm/dry Juanito Jerome DO Apr 22, 2018 10:58
[2018-04-22 12:00] VITALS: BP 155/80
--- NOTE | 2018-04-22 12:12 | Infectious Diseases Prog Note ---
Assessment/Plan Assessment/Plan Abx: Ancef 04/15-04/16 Assessment: Leukocytosis, resolved- suspect likely reactive to recent surgery -afebrile -u/a neg; ucx Neg -04/18 CXR: Development of trace right pleural effusion and right bibasilar opacities, likely atelectasis. Correlate clinically. Unchanged linear atelectasis or scarring in the left base. Fall w/ resultan R hip fracture -s/p ORIF 04/15 - CT chest: Compression fracture deformity of the T3, T7, and T8 vertebral bodies. Acuity indeterminate. Consider MRI for better characterization is clinically relevant. No other acute bony trauma. Bilateral basilar pulmonary parenchymal scarring and atelectasis, and nonspecific mild interstitial septal irregularity. 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 Chronic vertebral compression fractures -MRI T spine: T3, T7, T8 vertebral body compression fracture deformities. Lack of marrow signal changes indicating that these are chronic. Otherwise unremarkable exam Thyroid nodules Thyroid US: Heterogeneous thyroid with bilateral nodules, majority of which are subcentimeter. Nodule in the inferior left lobe of the thyroid with moderately suspicious pattern but size under 1.5 cm. Recommend follow-up ultrasound within 6 months to assess for stability. If there is interval change this may need FNA. HTN seizure disorder CKD anemia prior heroin abuse now on methadone Plan: -Continue to monitor off abx; ok to discharge off abx -f/u cx -Monitor CBC/CMP, temperatures; Trend WBC -aspiration precautions -Cdiff if diarrhea Thank you for this consultation. Will continue to follow along with you. Subjective Allergies: Coded Allergies: PENICILLINS (Unverified Allergy, Unknown, 04/14/18) Subjective Patient sitting up eating in Bed Deneis N/V/D and fever Hip pain controlled Objective Vital Signs Last 24 Hour Vital Signs Date Time Temp Pulse Resp B/P (MAP) Pulse Ox O2 Delivery O2 Flow Rate FiO2 04/22/18 12:00 98.6 72 20 155/80 (105) 98.6 04/22/18 09:00 Room Air 04/22/18 08:28 175/90 04/22/18 08:00 98.2 80 20 175/90 (118) 95 98.2 04/22/18 04:25 97.6 72 18 152/82 (105) 97 97.6 04/22/18 02:49 94 154/79 (104) 04/22/18 01:06 161/106 04/22/18 00:00 99.4 90 18 161/106 (124) 95 99.4 04/21/18 21:37 Room Air 04/21/18 20:00 98.4 81 18 150/90 (110) 98 98.4 04/21/18 16:00 98.3 74 18 149/85 (106) 95 98.3 Height (Feet): 5 Height (Inches): 5.00 Weight (Pounds): 116 Objective GENERAL: NAD, No Pain CARDIOVASCULAR: RRR, No murmur. LUNGS: CTAB, No Wheezing ABDOMEN: Bowel sound positive. Nontender. Nondistended. EXTREMITIES: No cyanosis, clubbing or edema. Bandage over hip NEUROLOGIC: The patient is slightly weak, but moves all extremities. Laboratory Tests Test 04/22/18 05:50 White Blood Count 8.8 K/UL (4.8-10.8) Red Blood Count 4.33 M/UL (4.20-5.40) Hemoglobin 9.4 G/DL (12.0-16.0) L Hematocrit 32.6 % (37.0-47.0) L Mean Corpuscular Volume 75 FL (80-99) L Mean Corpuscular Hemoglobin 21.8 PG (27.0-31.0) L Mean Corpuscular Hemoglobin Concent 29.0 G/DL (32.0-36.0) L Red Cell Distribution Width 26.1 % (11.6-14.8) H Platelet Count 208 K/UL (150-450) Mean Platelet Volume 6.3 FL (6.5-10.1) L Neutrophils (%) (Auto) 72.0 % (45.0-75.0) Lymphocytes (%) (Auto) 18.5 % (20.0-45.0) L Monocytes (%) (Auto) 7.2 % (1.0-10.0) Eosinophils (%) (Auto) 0.9 % (0.0-3.0) Basophils (%) (Auto) 1.4 % (0.0-2.0) Sodium Level 138 MMOL/L (136-145) Potassium Level 5.0 MMOL/L (3.5-5.1) Chloride Level 106 MMOL/L (98-107) Carbon Dioxide Level 24 MMOL/L (21-32) Anion Gap 8 mmol/L (5-15) Blood Urea Nitrogen 40 mg/dL (7-18) H Creatinine 1.4 MG/DL (0.55-1.30) H Estimat Glomerular Filtration Rate 45.8 mL/min (>60) Glucose Level 89 MG/DL (74-106) Calcium Level 9.1 MG/DL (8.5-10.1) Phosphorus Level 3.9 MG/DL (2.5-4.9) Magnesium Level 1.7 MG/DL (1.8-2.4) L Total Bilirubin 0.1 MG/DL (0.2-1.0) L Direct Bilirubin 0.1 MG/DL (0.0-0.3) Aspartate Amino Transf (AST/SGOT) 62 U/L (15-37) H Alanine Aminotransferase (ALT/SGPT) 46 U/L (12-78) Alkaline Phosphatase 76 U/L (46-116) Total Protein 7.6 G/DL (6.4-8.2) Albumin 2.7 G/DL (3.4-5.0) L Current Medications Medications (Trade) Dose Ordered Sig/Deysi Route PRN Reason Start Time Stop Time Status Last Admin Dose Admin Acetaminophen (Tylenol) 650 mg Q4H PRN ORAL fever 04/15/18 08:00 05/15/18 07:59 Acetaminophen/ Hydrocodone Bitart ([place] 10/325) 1 tab Q6H PRN ORAL moderate pain 04/17/18 14:45 04/24/18 14:44 04/19/18 00:57 Barium Sulfate (Readi-Cat 2) 450 ml NOW PRN ORAL Radiology Procedure 04/20/18 15:15 04/22/18 15:02 Clonidine HCl (Catapres Tab) 0.1 mg Q6H PRN ORAL For High Blood Pressure 04/20/18 16:30 05/20/18 16:29 04/22/18 08:28 Dextrose (Dextrose 50%) 25 ml STAT PRN IV Hypoglycemia 04/18/18 19:30 05/18/18 19:29 Dextrose (Dextrose 50%) 50 ml STAT PRN IV Hypoglycemia 7/23/18 19:30 05/18/18 19:29 Docusate Sodium (Colace) 100 mg THREE TIMES A DAY ORAL 04/15/18 18:00 05/15/18 17:59 04/22/18 09:19 Famotidine (Pepcid) 20 mg BID ORAL 04/17/18 12:30 05/17/18 12:29 04/22/18 09:19 Heparin Sodium (Porcine) (Heparin 5000 units/ml) 5,000 units EVERY 12 HOURS SUBQ 04/15/18 09:00 05/15/18 08:59 04/22/18 09:19 Hydromorphone HCl (Dilaudid) 1 mg Q4H PRN IVP Severe Pain (Pain Scale 7-10) 04/17/18 15:00 04/22/18 14:59 04/20/18 20:21 Insulin Aspart (NovoLOG) BEFORE MEALS AND HS SUBQ 04/18/18 21:00 05/18/18 20:59 04/21/18 06:11 Lidocaine (Lidoderm 5% PATCH) 1 patch DAILY TDERMAL 04/15/18 14:30 05/15/18 14:29 04/22/18 09:19 Magnesium Oxide (Mag-Ox 400mg) 400 mg THREE TIMES A DAY ORAL 04/22/18 13:00 05/22/18 12:59 Methadone HCl (Methadone HCl) 100 mg DAILY ORAL 04/16/18 09:00 04/23/18 08:59 04/22/18 09:19 Metoclopramide HCl (Reglan) 10 mg Q6H PRN IVP Nausea and Vomiting 04/15/18 17:30 05/15/18 17:29 Naloxone HCl (Narcan) 0.2 mg Q4H PRN IVP RESPRITORY DISTRESS 04/15/18 15:15 05/15/18 15:14 Polyethylene Glycol (Miralax) 17 gm HSPRN PRN ORAL Constipation 04/15/18 21:00 05/15/18 20:59 04/20/18 05:51 Sodium Chloride 1,000 ml @ 50 mls/hr Q20H IV 04/16/18 12:30 05/16/18 12:29 04/21/18 13:06 Zolpidem Tartrate (Ambien) 5 mg HSPRN PRN ORAL Insomnia 04/15/18 21:00 04/22/18 20:59 Ross Edwards M.D. Apr 22, 2018 12:12
--- NOTE | 2018-04-22 12:31 | General Progress Note ---
Assessment/Plan Assessment/Plan (1) Right hip fracture s/p ORIF (2) Right hip pain s/p fall (3) Thoracic compression fracture (4) H/o heroin abuse on methadone maintenance Pt will be continued on methadone, Dilaudid and [place]. D/w Dr. Drummond and he concurred. Subjective Date patient seen: Apr 22, 2018 Time patient seen: 11:30 - am Gastrointestinal/Abdominal: Reports: rectal bleeding Allergies: Coded Allergies: PENICILLINS (Unverified Allergy, Unknown, 04/14/18) Subjective REVIEW OF SYSTEMS: Denies rash, fever, chills, sweating, dizziness, drowsiness, blurred vision, sore throat, or change in weight. No shortness of breath or chest pain. No nausea, vomiting, diarrhea, or blood in the stool or urine. No bowel or bladder incontinence. No dysuria. She is complaining of right hip pain. SUBJECTIVE: Patient reports that the pain has been tolerated on the Methadone, [place] and Dilaudid. She has no new complaints at this time. Objective Last 24 Hour Vital Signs Date Time Temp Pulse Resp B/P (MAP) Pulse Ox O2 Delivery O2 Flow Rate FiO2 04/22/18 12:00 98.6 72 20 155/80 (105) 98.6 04/22/18 09:00 Room Air 04/22/18 08:28 175/90 04/22/18 08:00 98.2 80 20 175/90 (118) 95 98.2 04/22/18 04:25 97.6 72 18 152/82 (105) 97 97.6 04/22/18 02:49 94 154/79 (104) 04/22/18 01:06 161/106 04/22/18 00:00 99.4 90 18 161/106 (124) 95 99.4 04/21/18 21:37 Room Air 04/21/18 20:00 98.4 81 18 150/90 (110) 98 98.4 04/21/18 16:00 98.3 74 18 149/85 (106) 95 98.3 Intake and Output 04/21/18 04/22/18 19:00 07:00 Intake Total 610 ml 730 ml Balance 610 ml 730 ml Intake Oral 360 ml 120 ml IV Total 250 ml 610 ml # Voids 3 3 # Bowel Movements 4 1 Laboratory Tests 04/22/18 05:50: White Blood Count 8.8, Red Blood Count 4.33, Hemoglobin 9.4L, Hematocrit 32.6L, Mean Corpuscular Volume 75L, Mean Corpuscular Hemoglobin 21.8L, Mean Corpuscular Hemoglobin Concent 29.0L, Red Cell Distribution Width 26.1H, Platelet Count 208, Mean Platelet Volume 6.3L, Neutrophils (%) (Auto) 72.0, Lymphocytes (%) (Auto) 18.5L, Monocytes (%) (Auto) 7.2, Eosinophils (%) (Auto) 0.9, Basophils (%) (Auto) 1.4, Sodium Level 138, Potassium Level 5.0, Chloride Level 106, Carbon Dioxide Level 24, Anion Gap 8, Blood Urea Nitrogen 40H, Creatinine 1.4H, Estimat Glomerular Filtration Rate 45.8, Glucose Level 89, Calcium Level 9.1, Phosphorus Level 3.9, Magnesium Level 1.7L, Total Bilirubin 0.1L, Direct Bilirubin 0.1, Aspartate Amino Transf (AST/SGOT) 62H, Alanine Aminotransferase (ALT/SGPT) 46, Alkaline Phosphatase 76, Total Protein 7.6, Albumin 2.7L Height (Feet): 5 Height (Inches): 5.00 Weight (Pounds): 116 Objective GENERAL: Alert, awake, and oriented x3. LUNGS: Decreased breath sounds bilaterally. HEART: S1S2 Regular. ABDOMEN: Benign. EXTREMITIES: Lower extremity range of motion is decreased. The patient has tenderness to palpation to the right hip, bandages applied No cyanosis. No clubbing. No edema. NEURO: No changes. Jhony Whittaker Apr 22, 2018 12:31
[2018-04-22] MEDS ORDERED: ACETAMINOPHEN325 M1 ORAL (12:34)
[2018-04-22] MEDS ORDERED: CLONIDINE0.1 MG GT (12:37)
[2018-04-22] MEDS ORDERED: DOCUSATE SODIU100 M2 ORAL (12:38)
[2018-04-22] MEDS ORDERED: PEPCID AC20 M2 PO (12:39)
[2018-04-22] MEDS ORDERED: NORCO 10-325 T1 EACH ORAL (12:43)
[2018-04-22] MEDS ORDERED: HYDROmorphone 1mg/ml Carpuject IVP PRN (13:00)
[2018-04-22] MEDS ORDERED: HYDROcodone/Acetamin 10/325 tab ORAL PRN (13:00)
[2018-04-22] MEDS ORDERED: Magnesium Oxide 400mg tab ORAL SCH (13:00)
[2018-04-22] MEDS ORDERED: NOVOLOG100 UNITS1 (13:01)
[2018-04-22] MEDS ORDERED: METHADONE HCL40 M1 PO (13:03)
[2018-04-22] MEDS ORDERED: METHADONE10 MG/5 ML PO (13:03)
[2018-04-22] MEDS ORDERED: MIRALAX17 G2 ORAL (13:04)
[2018-04-22] MEDS ORDERED: LIDOCAINE700 M1 TP (13:06)
[2018-04-22] MEDS ORDERED: AMBIEN5 MG ORAL (13:06)
[2018-04-22] MEDS ORDERED: METHADONE HCL10 MG PO (13:12)
--- NOTE | 2018-04-22 13:33 | General Progress Note ---
Assessment/Plan Status: stable Assessment/Plan 1. Anemia of iron deficiency, which is severe iron deficiency. --> Continue to closely monitor for improvement. --> The patient has been begun on IV iron. --> Hgb goal >7 2. Anemia due to kidney disease. Creatinine currently improving. --> Continue to monitor as creatinine improves. 3. Multiple compression fractures. 4. T3, T7, and T8 compression fractures. 5. Leukocytosis secondary to recent surgery. --> WBC normalized. 6. Diabetes mellitus. Hemoglobin A1c goal less than 7. The time the note was entered does not necessarily correspond to the time the patient was seen. Subjective Date patient seen: Apr 22, 2018 ROS Limited/Unobtainable: Yes Hematologic/Lymphatic: Reports: anemia Allergies: Coded Allergies: PENICILLINS (Unverified Allergy, Unknown, 04/14/18) All Systems: reviewed and negative except above Subjective Pt awake and alert. No acute events. DC planning. Objective Last 24 Hour Vital Signs Date Time Temp Pulse Resp B/P (MAP) Pulse Ox O2 Delivery O2 Flow Rate FiO2 04/22/18 12:00 98.6 72 20 155/80 (105) 98.6 04/22/18 09:00 Room Air 04/22/18 08:28 175/90 04/22/18 08:00 98.2 80 20 175/90 (118) 95 98.2 04/22/18 04:25 97.6 72 18 152/82 (105) 97 97.6 04/22/18 02:49 94 154/79 (104) 04/22/18 01:06 161/106 04/22/18 00:00 99.4 90 18 161/106 (124) 95 99.4 04/21/18 21:37 Room Air 04/21/18 20:00 98.4 81 18 150/90 (110) 98 98.4 04/21/18 16:00 98.3 74 18 149/85 (106) 95 98.3 Intake and Output 04/21/18 04/22/18 19:00 07:00 Intake Total 610 ml 730 ml Balance 610 ml 730 ml Intake Oral 360 ml 120 ml IV Total 250 ml 610 ml # Voids 3 3 # Bowel Movements 4 1 Laboratory Tests 04/22/18 05:50: White Blood Count 8.8, Red Blood Count 4.33, Hemoglobin 9.4L, Hematocrit 32.6L, Mean Corpuscular Volume 75L, Mean Corpuscular Hemoglobin 21.8L, Mean Corpuscular Hemoglobin Concent 29.0L, Red Cell Distribution Width 26.1H, Platelet Count 208, Mean Platelet Volume 6.3L, Neutrophils (%) (Auto) 72.0, Lymphocytes (%) (Auto) 18.5L, Monocytes (%) (Auto) 7.2, Eosinophils (%) (Auto) 0.9, Basophils (%) (Auto) 1.4, Sodium Level 138, Potassium Level 5.0, Chloride Level 106, Carbon Dioxide Level 24, Anion Gap 8, Blood Urea Nitrogen 40H, Creatinine 1.4H, Estimat Glomerular Filtration Rate 45.8, Glucose Level 89, Calcium Level 9.1, Phosphorus Level 3.9, Magnesium Level 1.7L, Total Bilirubin 0.1L, Direct Bilirubin 0.1, Aspartate Amino Transf (AST/SGOT) 62H, Alanine Aminotransferase (ALT/SGPT) 46, Alkaline Phosphatase 76, Total Protein 7.6, Albumin 2.7L Height (Feet): 5 Height (Inches): 5.00 Weight (Pounds): 116 General Appearance: no apparent distress, alert EENT: PERRL/EOMI Neck: normal alignment Cardiovascular: irregularly irregular Respiratory/Chest: no respiratory distress Abdomen: normal bowel sounds, no mass Jose Maria Peña MD Apr 22, 2018 13:33
[2018-04-22] MEDS ORDERED: Fleet's Enema 133ml RECTAL ONE (14:15)
--- NOTE | 2018-04-22 14:18 | Pulmonology Progress Note ---
Assessment/Plan Problems: (1) Lytic lesion of bone on x-ray (2) Elevated CEA (3) Intertrochanteric fracture of right femur (4) Hip fracture, right (5) Compression fracture (6) Anemia (7) Diabetes (8) Hypertension (9) Hypoalbuminemia (10) Protein-calorie malnutrition, severe Assessment/Plan CT abdomen done, negative for any mass stool for OB negative Hem and GI evaluation all reviewed symptomatic treatment check electrolytes dc planning Subjective ROS Limited/Unobtainable: No Allergies: Coded Allergies: PENICILLINS (Unverified Allergy, Unknown, 04/14/18) Objective Last 24 Hour Vital Signs Date Time Temp Pulse Resp B/P (MAP) Pulse Ox O2 Delivery O2 Flow Rate FiO2 04/22/18 12:00 98.6 72 20 155/80 (105) 98.6 04/22/18 09:00 Room Air 04/22/18 08:28 175/90 04/22/18 08:00 98.2 80 20 175/90 (118) 95 98.2 04/22/18 04:25 97.6 72 18 152/82 (105) 97 97.6 04/22/18 02:49 94 154/79 (104) 04/22/18 01:06 161/106 04/22/18 00:00 99.4 90 18 161/106 (124) 95 99.4 04/21/18 21:37 Room Air 04/21/18 20:00 98.4 81 18 150/90 (110) 98 98.4 04/21/18 16:00 98.3 74 18 149/85 (106) 95 98.3 Intake and Output 04/21/18 04/22/18 19:00 07:00 Intake Total 610 ml 730 ml Balance 610 ml 730 ml Intake Oral 360 ml 120 ml IV Total 250 ml 610 ml # Voids 3 3 # Bowel Movements 4 1 General Appearance: WD/WN, no acute distress HEENT: atraumatic, anicteric Respiratory/Chest: chest wall non-tender, lungs clear Breasts: no masses Cardiovascular: normal peripheral pulses, regular rhythm Abdomen: normal bowel sounds, non distended Extremities: no clubbing Neurologic/Psychiatric: no motor/sensory deficits, abnormal gait Laboratory Tests 04/22/18 05:50: White Blood Count 8.8, Red Blood Count 4.33, Hemoglobin 9.4L, Hematocrit 32.6L, Mean Corpuscular Volume 75L, Mean Corpuscular Hemoglobin 21.8L, Mean Corpuscular Hemoglobin Concent 29.0L, Red Cell Distribution Width 26.1H, Platelet Count 208, Mean Platelet Volume 6.3L, Neutrophils (%) (Auto) 72.0, Lymphocytes (%) (Auto) 18.5L, Monocytes (%) (Auto) 7.2, Eosinophils (%) (Auto) 0.9, Basophils (%) (Auto) 1.4, Sodium Level 138, Potassium Level 5.0, Chloride Level 106, Carbon Dioxide Level 24, Anion Gap 8, Blood Urea Nitrogen 40H, Creatinine 1.4H, Estimat Glomerular Filtration Rate 45.8, Glucose Level 89, Calcium Level 9.1, Phosphorus Level 3.9, Magnesium Level 1.7L, Total Bilirubin 0.1L, Direct Bilirubin 0.1, Aspartate Amino Transf (AST/SGOT) 62H, Alanine Aminotransferase (ALT/SGPT) 46, Alkaline Phosphatase 76, Total Protein 7.6, Albumin 2.7L Current Medications Medications (Trade) Dose Ordered Sig/Deysi Route PRN Reason Start Time Stop Time Status Last Admin Dose Admin Acetaminophen (Tylenol) 650 mg Q4H PRN ORAL fever 04/15/18 08:00 05/15/18 07:59 Acetaminophen/ Hydrocodone Bitart ([place] 10/325) 1 tab Q6H PRN ORAL Moderate Pain (Pain Scale 4-6) 04/22/18 13:00 04/29/18 12:59 Barium Sulfate (Readi-Cat 2) 450 ml NOW PRN ORAL Radiology Procedure 04/20/18 15:15 04/22/18 15:02 Clonidine HCl (Catapres Tab) 0.1 mg Q6H PRN ORAL For High Blood Pressure 04/20/18 16:30 05/20/18 16:29 04/22/18 08:28 Dextrose (Dextrose 50%) 25 ml STAT PRN IV Hypoglycemia 04/18/18 19:30 05/18/18 19:29 Dextrose (Dextrose 50%) 50 ml STAT PRN IV Hypoglycemia 04/18/18 19:30 05/18/18 19:29 Docusate Sodium (Colace) 100 mg THREE TIMES A DAY ORAL 04/15/18 18:00 05/15/18 17:59 04/22/18 13:29 Famotidine (Pepcid) 20 mg BID ORAL 04/17/18 12:30 05/17/18 12:29 04/22/18 09:19 Heparin Sodium (Porcine) (Heparin 5000 units/ml) 5,000 units EVERY 12 HOURS SUBQ 04/15/18 09:00 05/15/18 08:59 04/22/18 09:19 Hydromorphone HCl (Dilaudid) 1 mg Q4H PRN IVP Severe Pain (Pain Scale 7-10) 04/22/18 13:00 04/29/18 12:59 04/22/18 13:36 Insulin Aspart (NovoLOG) BEFORE MEALS AND HS SUBQ 04/18/18 21:00 05/18/18 20:59 04/21/18 06:11 Lidocaine (Lidoderm 5% PATCH) 1 patch DAILY TDERMAL 04/15/18 14:30 05/15/18 14:29 04/22/18 09:19 Magnesium Oxide (Mag-Ox 400mg) 400 mg THREE TIMES A DAY ORAL 04/22/18 13:00 05/22/18 12:59 04/22/18 13:29 Methadone HCl (Methadone HCl) 100 mg DAILY ORAL 04/23/18 09:00 04/30/18 08:59 Metoclopramide HCl (Reglan) 10 mg Q6H PRN IVP Nausea and Vomiting 04/15/18 17:30 05/15/18 17:29 Naloxone HCl (Narcan) 0.2 mg Q4H PRN IVP RESPRITORY DISTRESS 04/15/18 15:15 05/15/18 15:14 Polyethylene Glycol (Miralax) 17 gm HSPRN PRN ORAL Constipation 04/15/18 21:00 05/15/18 20:59 04/20/18 05:51 Sodium Chloride 1,000 ml @ 50 mls/hr Q20H IV 04/16/18 12:30 05/16/18 12:29 04/21/18 13:06 Sodium Phosphate (Fleet's Sodium Phosl Enema) 133 ml ONCE ONCE RECTAL 04/22/18 14:15 04/22/18 14:16 UNV Zolpidem Tartrate (Ambien) 5 mg HSPRN PRN ORAL Insomnia 04/15/18 21:00 04/22/18 20:59 Rufina Venegas MD Apr 22, 2018 14:18
[2018-04-22] MEDS ORDERED: D5 1/2NS 1000ml IV ONE (15:49)
--- NOTE | 2018-04-25 13:08 | Discharge Summary ---
Discharge Summary Discharge Summary _ DATE OF ADMISSION: 04/15/2018 DATE OF DISCHARGE: REASON FOR ADMISSION: 62 years old female with past medical history of diabetes mellitus, hypertension , intravenous drug abuse with heroine, seizure disorder, presented with complaint of right thigh and right hip pain, status post fall. Patient denied loss of consciousness. She denied hitting her head. She denied headache, neck or back pain. She reported some right-sided rib pain as well. Upon evaluation CT of the right hip revealed right intertrochanteric hip fracture. It also revealed small osteolytic lesion of the right iliac bone, possibly representing multifocal neoplasm versus infection. CT of the chest revealed compression fracture deformity of T3, T7 and T8 vertebral bodies. Acuity indeterminate. Bilateral basilar scaring and atelectasis. Thyroid nodules. Laboratory workup revealed anemia with hemoglobin 7.1 hematocrit 25.4 and evidence of enal disease i with BUN of 21 and creatinine 1.9. Patient was admitted with diagnoses status post fall ,right hip fracture, multiply compression fractures, lytic lesion of bone on x-ray, anemia, chronic kidney disease. CONSULTANTS: ID specialist Dr. Lucia independent living specialist Dr. Ross crinkling machine operator/oncologist Dr. Peña surgery Dr. George pain specialist Dr. Drummond outcomes manager [facility] COURSE: Patient admitted. Patient received 1 unit of packed red blood cells . Surgery consult was requested. Patient started on IV hydration. Pain management was addressed. Patient subsequently undergone open reduction internal fixation of right hip fracture. DVT prophylaxis provided. Pain management was addressed. Patient was working with physical and occupational therapists. Fall precautions were maintained. Incentive spirometry was encouraged while patient was in bed. Patient noted to have leukocytosis of 16.7 on April 17. Patient was afebrile. Urinalysis revealed no evidence of infection. Incentive spirometry was encouraged. Chest x-ray was negative . Infectious disease specialist closely follow. No evidence of infection. Leukocytosis was likely reactive due to acute fracture, leukocytosis resolved. Incentive spirometry was encouraged. Pain management provided as per pain specialist recommendations. Filter Pulp Washer closely followed. According to independent living specialist, patient had chronic kidney disease. Renal ultrasound revealed mild dilatation of the left ureter. No stones or masses, no hydronephrosis noted. Thyroid ultrasound revealed acute heterogeneous thyroid with bilateral multiple nodules, majority of which were subcentimeter. Nodule in the inferior left lobe of the thyroid was moderately suspicious but under 1.5 cm. Vp Delivery closely followed. Blood sugar was managed with sliding scale insulin hemoglobin A1c 6.4 at goal Per outcomes manager, repeat thyroid ultrasound in 6 months. If there will be an interval change, patient will probably need fine-needle aspiration. Noted elevated CEA. CT of the abdomen and pelvis was done and revealed no acute abnormalities to account for elevated CEA . Hemoglobin and hematocrit were closely monitored. Stool for occult blood was negative. Software Applications Architect closely followed. Patient had a significant iron deficiency anemia and anemia of chronic kidney disease. Patient received IV iron. Hemoglobin and hematocrit were closely monitored with goal to keep hemoglobin above 7. HIV test was negative. Prior to discharge hemoglobin 9.4 hematocrit 32.6. Filter Pulp Washer closely followed. Renal parameters and electrolytes were closely monitored. Electrolytes were corrected as needed. Nephrotoxics were avoided. Renal ultrasound revealed no evidence of hydronephrosis. Prior to discharge BUN 40 and creatine 1.4. Precautions were maintained. No evidence of seizure activity while un the hospital. Continue Dilantin. Bowel regimen instituted. Blood pressure was managed with clonidine . DVT and GI prophylaxis provided . Supportive care provided . Teacher [employer] Hand[employer] recommendations implemented in plan of care. Patient clinically improved and was stable for discharge to [facility] facility for continuation of care. FINAL DIAGNOSES: s/p fall Right intertrochanteric hip and femur fracture s/p open reduction internal fixation of right hip fracture Multiply compression fractions Lytic lesion of bone on X ra Iron deficiency anemia Anemia of chronic kidney disease Chronic kidney disease Diabetes mellitus Hypertension Severe protein calorie malnutrition Thyroid nodules DISCHARGE MEDICATIONS: See Medication Reconciliation list. DISCHARGE INSTRUCTIONS: Patient was discharged to [facility] facility , follow-up with medical doctor at the facility. Follow up with thyroid ultrasound in 6 months I have been assigned to dictate discharge summary for this account. I was not involved in the patient's management. Marlena Marcos NP Apr 25, 2018 13:08
== END 2018-04-22 15:50 | DRG 308 ==
LOC: EDBD 18:48 → EDBEDREQ 20:41 → EMR 21:08 → 4W 04-15 → EDBEDREQ 04-15 00:07
PROC: 0QS606Z Reposition Right Upper Femur with Intramedullary Internal Fixation Device, Open Approach (ICD-10-PCS; principal; 2018-04-15 14:45)
DX: S72.144A Nondisplaced intertrochanteric fracture of right femur, initial encounter for closed fracture (principal); E43 Unspecified severe protein-calorie malnutrition; N17.9 Acute kidney failure, unspecified; S22.038A Other fracture of third thoracic vertebra, initial encounter for closed fracture; E11.22 Type 2 diabetes mellitus with diabetic chronic kidney disease; F11.20 Opioid dependence, uncomplicated; S22.068A Other fracture of T7-T8 thoracic vertebra, initial encounter for closed fracture; W18.30XA Fall on same level, unspecified, initial encounter; Y92.009 Unspecified place in unspecified non-institutional (private) residence as the place of occurrence of the external cause; I12.9 Hypertensive chronic kidney disease with stage 1 through stage 4 chronic kidney disease, or unspecified chronic kidney disease; N18.9 Chronic kidney disease, unspecified; G40.909 Epilepsy, unspecified, not intractable, without status epilepticus; I25.10 Atherosclerotic heart disease of native coronary artery without angina pectoris; E04.2 Nontoxic multinodular goiter; D72.829 Elevated white blood cell count, unspecified; Z68.1 Body mass index [BMI] 19.9 or less, adult; M89.9 Disorder of bone, unspecified
CPT/HCPCS: 36415; 71045; 71250; 72146; 72170; 74176; 76001; 76536; 76770; 80048; 80053; 80061; 80076; 81001; 82270; 82378; 82550; 82607; 82728; 82746; 82962; 83036; 83540; 83550; 83615; 83735; 83880; 84100; 84439; 84443; 84480; 84481; 84484; 84550; 85007; 85025; 85044; 85060; 85610; 85651; 85730; 86140; 86703; 86850; 86900; 86901; 86920; 87086; 89050; 93005; 94003; 94150; 97803; 99285; J1815; J2250; J2710